=== PATIENT | female | born 1960 | race Caucasian/White ===

== ENCOUNTER 2020-10-11 19:13 | Inpatient (IN) | payer MEDICARE, MEDICAID ==
[~2020-10-11] VITALS: Ht 160 cm; Wt 59.7 kg
--- NOTE | 2020-10-11 19:36 | PHYS DOC ---
Adult General HPI HPI Patient is a 60 year old the emergency department from the longterm for altered mental status and treated behavior. According to the longterm staff the patient has been declined to eat or take her medications for approximately 1 week. Patient has a poor historian and unable to provide any significant hist ory. Does deny any symptoms at this time. Staff the longterm do believe she has some change from her baseline but the timeline is not specific. No acute changes today and no deviation from today. No reported fever, chills, chest pain or shortness of breath. Unsure why the patient was sent to the emergency department Review of Systems Review of Systems Constitutional: Denies fever or chills [] Eyes: Denies change in visual acuity, redness, or eye pain [] HENT: Denies nasal congestion or sore throat [] Respiratory: Denies cough or shortness of breath [] Cardiovascular: No additional information not addressed in HPI [] GI: Denies abdominal pain, nausea, vomiting, bloody stools or diarrhea [] : Denies dysuria or hematuria [] Musculoskeletal: Denies back pain or joint pain [] Integument: Denies rash or skin lesions [] Neurologic: Denies headache, focal weakness or sensory changes [] Endocrine: Denies polyuria or polydipsia [] All other systems were reviewed and found to be within normal limits, except as documented in this note. Physical Exam Physical Exam Constitutional: Well developed, well nourished, no acute distress, non-toxic appearance. [] HENT: Normocephalic, atraumatic, bilateral external ears normal, oropharynx moist, no oral exudates, nose normal. [] Eyes: PERRLA, EOMI, conjunctiva normal, no discharge. [] Neck: Normal range of motion, no tenderness, supple, no stridor. [] Cardiovascular:Heart rate regular rhythm, no murmur [] Lungs & Thorax: Bilateral breath sounds clear to auscultation [] Abdomen: Bowel sounds normal, soft, no tenderness, no masses, no pulsatile masses. [] Skin: Warm, dry, no erythema, no rash. [] Back: No tenderness, no CVA tenderness. [] Extremities: No tenderness, no cyanosis, no clubbing, ROM intact, no edema. [] Neurologic: Alert and oriented X 3, normal motor function, normal sensory function, no focal deficits noted. [] Psychologic: Affect normal, judgement normal, mood normal. [] EKG EKG [] Radiology/Procedures Radiology/Procedures [] Course & Med Decision Making Course & Med Decision Making Pertinent Labs and Imaging studies reviewed. (See chart for details) [] Dragon Disclaimer Dragon Disclaimer This electronic medical record was generated, in whole or in part, using a voice recognition dictation system. Departure Departure Referrals: ABELARDO RAI MD (PCP) FAUSTINO BRADFORD MD Oct 11, 2020 19:36
[2020-10-11 19:45] LABS: BASO % 0 % (0-3); EOS # 0.1 x10^3/uL (0.0-0.7); EOS % 1 % (0-3); HEMATOCRIT 43.8 % (36.0-47.0); HEMOGLOBIN 13.8 g/dL (12.0-15.5); LYMPH # 2.9 x10^3/uL (1.0-4.8); LYMPH % 27 % (24-48); MEAN CORPUSCULAR HEMOGLOBIN 29 pg (25-35); MEAN CORPUSCULAR HGB CONC 31 g/dL (31-37); MEAN CORPUSCULAR VOLUME 94 fL (79-100); MONO # 1.2 x10^3/uL (0.0-1.1); MONO % 11 % (0-9); NEUT # 6.7 x10^3/uL (1.8-7.7); NEUT % 61 % (31-73); PLATELET COUNT 218 x10^3/uL (140-400); RED BLOOD COUNT 4.69 x10^6/uL (3.50-5.40); RED CELL DISTRIBUTION WIDTH 14.2 % (11.5-14.5); WHITE BLOOD COUNT 11.1 x10^3/uL (4.0-11.0)
[2020-10-11] MEDS ORDERED: IV NORMAL SALINE 1000ML BAG 1,000 ML IV ONE (19:45)
[2020-10-11 19:51] LABS: BILIRUBIN,URINE MODERATE (NEG); CLARITY,URINE CLEAR; COLOR,URINE AMBER; NITRITE,URINE NEGATIVE (NEG); PH,URINE 5.5 (<5.0-8.0); PROTEIN,URINE 30 mg/dL (NEG-TRACE)
[2020-10-11 20:02] LABS: AMORPHOUS SEDIMENT,UR PRESENT /HPF; BACTERIA,URINE MODERATE /HPF (0-FEW)
[2020-10-11 20:03] LABS: HYALINE CASTS, URINE MODERATE /HPF; RBC,URINE 0 /HPF (0-2)
[2020-10-11 20:04] LABS: WBC,URINE 20-40 /HPF (0-4)
[2020-10-11 20:04] LABS: ALBUMIN 3.7 g/dL (3.4-5.0); ALBUMIN/GLOBULIN RATIO 0.7 (1.0-1.7); CALCIUM 9.1 mg/dL (8.5-10.1); CREATININE 3.6 mg/dL (0.6-1.0); GFR 12.8; POTASSIUM 4.3 mmol/L (3.5-5.1); TOTAL BILIRUBIN 0.5 mg/dL (0.2-1.0); TOTAL PROTEIN 8.7 g/dL (6.4-8.2)
--- NOTE | 2020-10-11 20:35 | RAD ---
Exam: CT head INDICATION: Altered mental status TECHNIQUE: Sequential axial images through the head were obtained without the administration of IV co ntrast. Comparisons: None FINDINGS: There is a subcentimeter focus of hyperdensity noted in the aneta on the left series 7 image 28. No fo nika parenchymal lesion or hemorrhage is identified. There is no midline shift or sulcal effacement. Patchy hypodensity in the periventricular white matter. No acute vascular territory infarction is chelo ntified. Cabrera-white distinction is preserved. Prominence of ventricular system. Basal cisterns are well maintained. The basal cisterns are well sidney ntained. The visualized portions of the paranasal sinuses and mastoid air cells are well-pneumatized. No acute fractures. IMPRESSION: Small focus of hyperdensity noted on described above nonspecific may represent calcification versus p unctate hemorrhage. Recommend further evaluation with either MRI or short-term follow-up head CT. Exposure: One or more of the following in the visualized dose reduction techniques were utilized for this examination: 1. Automated exposure control 2. Adjustment of the MA and/or KV according to patient size Use of iterative of reconstructive technique FOR INTERNAL CODING PURPOSES Critical result: Findings discussed with Eros Chacon at 10/11/2020 8:31 PM. RESULT CODE: (C) Electronically signed by: Omar Nelson MD (10/11/2020 8:33 PM) [facility]
[2020-10-11] MEDS ORDERED: PHENYTOIN SODIUM EXTENDED 100 MG CAPSULE PO ONE (21:00)
[2020-10-11] MEDS ORDERED: IV 1/2 NORMAL SALINE 1,000 ML IV ONE (21:00)
[2020-10-11] MEDS ORDERED: ONDANSETRON PF 4 MG/2 ML VIAL. IV PRN (21:00)
[2020-10-11] MEDS ORDERED: MORPHINE SULFATE 2 MG/ML VIAL. IV PRN (21:00)
--- NOTE | 2020-10-11 21:01 | RAD ---
EXAM: AP View of the chest DATE: 10/11/2020 7:55 PM INDICATION: Altered mental status COMPARISON: No Prior FINDINGS: The heart is not enlarged. Mediastinal and hilar contours are normal. No focal parenchymal airspace opacity. Hyperlucency of the lung kendrick likely from underlying emphyse matous change. No pleural effusion or pneumothorax. IMPRESSION: 1. No radiographic evidence for acute cardiopulmonary process. Electronically signed by: Fili Claire MD (10/11/2020 8:59 PM) [facility]
[2020-10-12] VITALS (30 sets, daily range): BP systolic 69–101; BP diastolic 39–71
[2020-10-12] MEDS ORDERED: ACET500T68 PO (02:13)
[2020-10-12] MEDS ORDERED: LINZESS290 MCG PO (02:13)
[2020-10-12] MEDS ORDERED: CA C1TAB29 PO (02:13)
[2020-10-12] MEDS ORDERED: ATEN50TA PO (02:13)
[2020-10-12] MEDS ORDERED: SPIR25TA5 PO (02:13)
[2020-10-12] MEDS ORDERED: ASPI81TA59 PO (02:13)
[2020-10-12] MEDS ORDERED: PHEN100C PO ×2 (02:13)
[2020-10-12] MEDS ORDERED: ASCO500C PO (02:13)
[2020-10-12] MEDS ORDERED: SALI325S2 TP (02:13)
[2020-10-12] MEDS ORDERED: DOCU100C28 PO (02:13)
[2020-10-12] MEDS ORDERED: LISI10TA16 PO (02:13)
[2020-10-12] MEDS: FOSPHENYTOIN 100 MG/2 ML VIAL. IV SCH ×3 (06:16→21:38)
--- NOTE | 2020-10-12 07:55 | PDOC1 ---
History and Physical Date of Admission Date of Admission DATE: 10/12/20 TIME: 07:53 Identification/Chief Complaint Chief Complaint altered mental status, HYPOTENSION, DEHYDRATION History of Present Illness History of Present Illness [facility] seen [facility] has been declined to eat or take her medications for approximately 1 week. poor historian and unable to provide any significant history. No symptoms at presentation per ER note . Staff the [facility] believes she has some change from her baseline 60 year old with altered mental status and treated behavior. symptoms at this time. Staff the [facility] do believe she has some change from her baseline but the timeline is not specific. No acute changes today and no deviation from today. No reported fever, chills, chest pain or shortness of breath. sodium noted to be 161 in ER Past Medical History Past Medical History CENTRAL NERVOUS SYSTEM: Seizure (? Nonepileptic) GI: Other (Dysphagia) Infectious disease: Other (COVID-19 in February 2020) Past Surgical History Past Surgical History: No pertinent history Family History Family History: No pertinent hx Social History Social History [facility] resident Cardiovascular: HTN, Hyperlipidemia CENTRAL NERVOUS SYSTEM: Dementia Heme/Onc: No pertinent hx Musculoskeletal: Osteoarthritis Dermatology: No pertinent hx Family History Family History: Hypertension Social History Smoke: No ALCOHOL: none Drugs: None Current Problem List Problem List Problems Medical Problems: (1) Acute renal failure Status: Acute (2) Hypernatremia Status: Acute Current Medications Current Medications Current Medications Sodium Chloride 1,000 ml @ 1,000 mls/hr 1X ONCE IV Last administered on 10/11/20at 19:45; Start 10/11/20 at 19:45; Stop 10/11/20 at 20:46; Status DC Sodium Chloride 1,000 ml @ 100 mls/hr 1X ONCE IV Last administered on 10/11/20at 02:33; Start 10/11/20 at 21:00; Stop 10/12/20 at 06:59; Status DC Ondansetron HCl (Zofran) 4 mg PRN Q8HRS PRN IV NAUSEA/VOMITING 1ST CHOICE; Start 10/11/20 at 21:00; Stop 10/12/20 at 20:59 Morphine Sulfate (Morphine Sulfate) 2 mg PRN Q2HR PRN IV SEVERE PAIN 7-10; Start 10/11/20 at 21:00; Stop 10/12/20 at 20:59 Phenytoin Sodium (Dilantin) 100 mg 1X ONCE PO ; Start 10/11/20 at 21:00; Stop 10/11/20 at 21:01; Status DC Fosphenytoin Sodium (Cerebyx) 167 mg Q8HRS IV Last administered on 10/12/20at 06:16; Start 10/12/20 at 06:00 Active Scripts Active Reported Vitamin D3-Aloe 1,000 Unit Tab (Ca Cmb 1/Vit D3/B-6/Fa/B12/Av) 1 Each Tablet 1 Each PO DAILY Vitamin C (Ascorbic Acid) 500 Mg Capsule.er 500 Mg PO DAILY Spironolactone 25 Mg Tablet 25 Mg PO DAILY Selsun Blue (Salicylic Acid) 325 Ml Shampoo 7 Oz TP ,FRI Lisinopril 10 Mg Tablet 10 Mg PO DAILY Linzess (Linaclotide) 290 Mcg Capsule 72 Mcg PO DAILY07 Docusate Sodium 100 Mg Capsule 1 Cap PO DAILY 30 Days Dilantin (Phenytoin Sodium Extended) 100 Mg Capsule 200 Mg PO BID Dilantin (Phenytoin Sodium Extended) 100 Mg Capsule 1 Cap PO DAILY16 Atenolol 50 Mg Tablet 50 Mg PO DAILY Children's Aspirin (Aspirin) 81 Mg Tab.chew 81 Mg PO DAILY PRN Acetaminophen 500 Mg Tablet 500 Mg PO Q4HRS PRN Allergies Allergies: Coded Allergies: No Known Drug Allergies (Unverified , 10/11/20) ROS Review of System UNABLE TO PROVIDE ADEQUATE ROS DUE TO AMS Respiratory: Denies cough or shortness of breath [] Cardiovascular: No additional information not addressed in HPI [] GI: Denies abdominal pain, nausea, vomiting, bloody stools or diarrhea [] : Denies dysuria or hematuria [] Musculoskeletal: Denies back pain or joint pain [] Integument: Denies rash or skin lesions [] Neurologic: Denies headache, focal weakness or sensory changes [] Endocrine: Denies polyuria or polydipsia [] General: YES: Fatigue PSYCHOLOGICAL ROS: YES: Concentration difficultie, Disorientation, Memory difficulties Hematological and Lymphatic: No: Bleeding Problems, Blood Clots, Blood Transf usions, Brusing, Night Sweats, Pallor, Swollen Lymph Nodes, Other Respiratory: No: Cough, Hemoptysis, Orthopnea, Pleuritic Pain, Shortness of breath, SOB with excertion, Sputum Changes, Stridor, Tachypnea, Wheezing, Other Musculoskeletal: Yes Joint Stiffness Physical Exam Physical Exam Neck: Normal range of motion, no tenderness, supple, no stridor. [] Cardiovascular:Heart rate regular rhythm, no murmur [] Lungs & Thorax: Bilateral breath sounds clear to auscultation [] Abdomen: Bowel sounds normal, soft, no tenderness, no masses, no pulsatile masses. [] Skin: Warm, dry, no erythema, no rash. [] Back: No tenderness, no CVA tenderness. [] Extremities: No tenderness, no cyanosis, no clubbing, ROM intact, no edema. [] Neurologic: Alert and oriented X 3, normal motor function, normal sensory function, General: Cooperative, No acute distress HEENT: Atraumatic Lungs: Clear to auscultation, Normal air movement Heart: RRR Breasts: Not examined Abdomen: Soft Rectal Exam: not examined PELVIC: Examination not indicated Extremities: No cyanosis Vitals Vitals Vital Signs Date Time Temp Pulse Resp B/P (MAP) Pulse Ox O2 Delivery O2 Flow Rate FiO2 10/12/20 07:00 78 12 81/60 (67) 100 Room Air 10/12/20 04:00 97.4 97.4 Labs Labs Laboratory Tests Test 10/11/20 19:35 10/11/20 19:40 White Blood Count 11.1 x10^3/uL (4.0-11.0) Red Blood Count 4.69 x10^6/uL (3.50-5.40) Hemoglobin 13.8 g/dL (12.0-15.5) Hematocrit 43.8 % (36.0-47.0) Mean Corpuscular Volume 94 fL (79-100) Mean Corpuscular Hemoglobin 29 pg (25-35) Mean Corpuscular Hemoglobin Concent 31 g/dL (31-37) Red Cell Distribution Width 14.2 % (11.5-14.5) Platelet Count 218 x10^3/uL (140-400) Neutrophils (%) (Auto) 61 % (31-73) Lymphocytes (%) (Auto) 27 % (24-48) Monocytes (%) (Auto) 11 % (0-9) Eosinophils (%) (Auto) 1 % (0-3) Basophils (%) (Auto) 0 % (0-3) Neutrophils # (Auto) 6.7 x10^3/uL (1.8-7.7) Lymphocytes # (Auto) 2.9 x10^3/uL (1.0-4.8) Monocytes # (Auto) 1.2 x10^3/uL (0.0-1.1) Eosinophils # (Auto) 0.1 x10^3/uL (0.0-0.7) Basophils # (Auto) 0.0 x10^3/uL (0.0-0.2) Sodium Level 164 mmol/L (136-145) Potassium Level 4.3 mmol/L (3.5-5.1) Chloride Level 123 mmol/L (98-107) Carbon Dioxide Level 28 mmol/L (21-32) Anion Gap 13 (6-14) Blood Urea Nitrogen 77 mg/dL (7-20) Creatinine 3.6 mg/dL (0.6-1.0) Estimated GFR (Cockcroft-Gault) 12.8 BUN/Creatinine Ratio 21 (6-20) Glucose Level 125 mg/dL (70-99) Calcium Level 9.1 mg/dL (8.5-10.1) Magnesium Level 3.0 mg/dL (1.8-2.4) Total Bilirubin 0.5 mg/dL (0.2-1.0) Aspartate Amino Transf (AST/SGOT) 45 U/L (15-37) Alanine Aminotransferase (ALT/SGPT) 43 U/L (14-59) Alkaline Phosphatase 146 U/L (46-116) Ammonia < 10 mcmol/L (11-34) Creatine Kinase 361 U/L (26-192) LV-Mrv-L-Type Natriuretic Peptide 620 pg/mL (0-124) Total Protein 8.7 g/dL (6.4-8.2) Albumin 3.7 g/dL (3.4-5.0) Albumin/Globulin Ratio 0.7 (1.0-1.7) Urine Collection Type U cath Urine Color Eleanor Urine Clarity Clear Urine pH 5.5 (<5.0-8.0) Urine Specific [place] 1.025 (1.000-1.030) Urine Protein 30 mg/dL (NEG-TRACE) Urine Glucose (UA) Negative mg/dL (NEG) Urine Ketones (Stick) Trace mg/dL (NEG) Urine Blood Negative (NEG) Urine Nitrite Negative (NEG) Urine Bilirubin Moderate (NEG) Urine Urobilinogen Dipstick 1.0 mg/dL (0.2 mg/dL) Urine Leukocyte Esterase Trace (NEG) Urine RBC 0 /HPF (0-2) Urine WBC 20-40 /HPF (0-4) Urine Squamous Epithelial Cells Few /LPF Urine Amorphous Sediment Present /HPF Urine Bacteria Moderate /HPF (0-FEW) Urine Hyaline Casts Moderate /HPF Urine Mucus Mod /LPF Laboratory Tests Test 10/11/20 19:35 10/11/20 19:40 White Blood Count 11.1 x10^3/uL (4.0-11.0) Red Blood Count 4.69 x10^6/uL (3.50-5.40) Hemoglobin 13.8 g/dL (12.0-15.5) Hematocrit 43.8 % (36.0-47.0) Mean Corpuscular Volume 94 fL (79-100) Mean Corpuscular Hemoglobin 29 pg (25-35) Mean Corpuscular Hemoglobin Concent 31 g/dL (31-37) Red Cell Distribution Width 14.2 % (11.5-14.5) Platelet Count 218 x10^3/uL (140-400) Neutrophils (%) (Auto) 61 % (31-73) Lymphocytes (%) (Auto) 27 % (24-48) Monocytes (%) (Auto) 11 % (0-9) Eosinophils (%) (Auto) 1 % (0-3) Basophils (%) (Auto) 0 % (0-3) Neutrophils # (Auto) 6.7 x10^3/uL (1.8-7.7) Lymphocytes # (Auto) 2.9 x10^3/uL (1.0-4.8) Monocytes # (Auto) 1.2 x10^3/uL (0.0-1.1) Eosinophils # (Auto) 0.1 x10^3/uL (0.0-0.7) Basophils # (Auto) 0.0 x10^3/uL (0.0-0.2) Sodium Level 164 mmol/L (136-145) Potassium Level 4.3 mmol/L (3.5-5.1) Chloride Level 123 mmol/L (98-107) Carbon Dioxide Level 28 mmol/L (21-32) Anion Gap 13 (6-14) Blood Urea Nitrogen 77 mg/dL (7-20) Creatinine 3.6 mg/dL (0.6-1.0) Estimated GFR (Cockcroft-Gault) 12.8 BUN/Creatinine Ratio 21 (6-20) Glucose Level 125 mg/dL (70-99) Calcium Level 9.1 mg/dL (8.5-10.1) Magnesium Level 3.0 mg/dL (1.8-2.4) Total Bilirubin 0.5 mg/dL (0.2-1.0) Aspartate Amino Transf (AST/SGOT) 45 U/L (15-37) Alanine Aminotransferase (ALT/SGPT) 43 U/L (14-59) Alkaline Phosphatase 146 U/L (46-116) Ammonia < 10 mcmol/L (11-34) Creatine Kinase 361 U/L (26-192) VN-Myb-A-Type Natriuretic Peptide 620 pg/mL (0-124) Total Protein 8.7 g/dL (6.4-8.2) Albumin 3.7 g/dL (3.4-5.0) Albumin/Globulin Ratio 0.7 (1.0-1.7) Urine Collection Type U cath Urine Color Eleanor Urine Clarity Clear Urine pH 5.5 (<5.0-8.0) Urine Specific [place] 1.025 (1.000-1.030) Urine Protein 30 mg/dL (NEG-TRACE) Urine Glucose (UA) Negative mg/dL (NEG) Urine Ketones (Stick) Trace mg/dL (NEG) Urine Blood Negative (NEG) Urine Nitrite Negative (NEG) Urine Bilirubin Moderate (NEG) Urine Urobilinogen Dipstick 1.0 mg/dL (0.2 mg/dL) Urine Leukocyte Esterase Trace (NEG) Urine RBC 0 /HPF (0-2) Urine WBC 20-40 /HPF (0-4) Urine Squamous Epithelial Cells Few /LPF Urine Amorphous Sediment Present /HPF Urine Bacteria Moderate /HPF (0-FEW) Urine Hyaline Casts Moderate /HPF Urine Mucus Mod /LPF Images Images EXAM: AP View of the chest DATE: 10/11/2020 7:55 PM INDICATION: Altered mental status COMPARISON: No Prior FINDINGS: The heart is not enlarged. Mediastinal and hilar contours are normal. No focal parenchymal airspace opacity. Hyperlucency of the lung kendrick likely f rom underlying emphysematous change. No pleural effusion or pneumothorax. IMPRESSION: 1. No radiographic evidence for acute cardiopulmonary process. Electronically signed by: Fili Brown MD (10/11/2020 8:59 PM) [facility] DICTATED and SIGNED BY: FILI BROWN MD Exam: CT head INDICATION: Altered mental status TECHNIQUE: Sequential axial images through the head were obtained without the administration of IV contrast. Comparisons: None FINDINGS: There is a subcentimeter focus of hyperdensity noted in the aneta on the left series 7 image 28. No focal parenchymal lesion or hemorrhage is identified. There is no midline shift or sulcal effacement. Patchy hypodensity in the periventricular white matter. No acute vascular territory infarction is identified. Cabrera-white distinction is preserved. Prominence of ventricular system. Basal cisterns are well maintained. The basal cisterns are well maintained. The visualized portions of the paranasal sinuses and mastoid air cells are well- pneumatized. No acute fractures. IMPRESSION: Small focus of hyperdensity noted on described above nonspecific may represent calcification versus punctate hemorrhage. Recommend further evaluation with either MRI or short-term follow-up head CT. Exposure: One or more of the following in the visualized dose reduction techniques were utilized for this examination: 1. Automated exposure control 2. Adjustment of the MA and/or KV according to patient size Use of iterative of reconstructive technique FOR INTERNAL CODING PURPOSES Critical result: Findings discussed with Eros Chacon at 10/11/2020 8:31 PM. RESULT CODE: (C) Electronically signed by: Omar Daniels MD (10/11/2020 8:33 PM) [facility] DICTATED and SIGNED BY: OMAR DANIELS MD DATE: 10/11/208926OAC4 0 VTE Prophylaxis Ordered VTE Prophylaxis Devices: Yes VTE Pharmacological Prophylaxi: Yes Assessment/Plan Assessment/Plan impression 1. Severe electrolyte imbalance with hypernatremia, , hyperchloremia volume depleted 2. Altered mental status ,Small focus of hyperdensity noted on described above nonspecific may represent calcification versus punctate hemorrhage 3. morbid obesity 4. remote cva 5. hx dysphagia 6. HYPOTENSION, volume depleted plan 1. admit ICU 2. Consult nephrology 3. consult neurology 4. HYPOTONIC IV FLUID SUPPORT 5. DVT prophylaxis 6. PT/OT/ST 7. GI CONSULT 36 min cc time Justifications for Admission Other Justification GINO MOYER MD Oct 12, 2020 07:55
[2020-10-12] MEDS ORDERED: IV DEXTROSE 5 %-0.2 % NACL 1,000 ML IV SCH (08:00)
[2020-10-12] MEDS ORDERED: cefTRIAXone IV Push 1 GM VIAL. IVP SCH (09:00)
--- NOTE | 2020-10-12 09:46 | PDOC2 ---
CONSULT Date of Consult Date of Consult DATE: 10/12/20 TIME: 09:34 Reason for Consult Reason for Consult: MILVIA, Hyper Na Referring Physician Referring Physician: MILVIA, HyperNatremia Identification/Chief Complaint Chief Complaint Unable to Obtain 2/2AMS Source Source: Chart review History of Present Illness Reason for Visit: Patient is a 60 year old presented to the emergency department from the [facility] for altered mental status According to the [facility] staff the patient has been declined to eat or take her medications for approximately 1 week. Patient has a poor historian and unable to provide any significant history. No symptoms at presentation per ER note . Staff the snf do believe she has some change from her baseline but the timeline is not specific. No acute changes at presentation per ER . No reported fever, chills, chest pain or shortness of breath. No N/V/D. Per ER provider - Unsure why the patient was sent to the emergency department. Last nigt dw ER provider -no reported UTI per ER provider Labs at presentation cw MILVIA and HyperNatremia Past Medical History Past Medical History Seizure (? 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 Smoke: No ALCOHOL: none Drugs: None Current Problem List Problem List Problems Medical Problems: (1) Acute renal failure Status: Acute (2) Hypernatremia Status: Acute Current Medications Current Medications Current Medications Sodium Chloride 1,000 ml @ 1,000 mls/hr 1X ONCE IV Last administered on 10/11/20at 19:45; Start 10/11/20 at 19:45; Stop 10/11/20 at 20:46; Status DC Sodium Chloride 1,000 ml @ 100 mls/hr 1X ONCE IV Last administered on 10/11/20at 02:33; Start 10/11/20 at 21:00; Stop 10/12/20 at 06:59; Status DC Ondansetron HCl (Zofran) 4 mg PRN Q8HRS PRN IV NAUSEA/VOMITING 1ST CHOICE; Start 10/11/20 at 21:00; Stop 10/12/20 at 20:59 Morphine Sulfate (Morphine Sulfate) 2 mg PRN Q2HR PRN IV SEVERE PAIN 7-10; Start 10/11/20 at 21:00; Stop 10/12/20 at 20:59 Phenytoin Sodium (Dilantin) 100 mg 1X ONCE PO ; Start 10/11/20 at 21:00; Stop 10/11/20 at 21:01; Status DC Fosphenytoin Sodium (Cerebyx) 167 mg Q8HRS IV Last administered on 10/12/20at 06:16; Start 10/12/20 at 06:00 Dextrose/Sodium Chloride 1,000 ml @ 75 mls/hr [id number] IV Last administered on 10/12/20at 08:21; Start 10/12/20 at 08:00 Ceftriaxone Sodium (Rocephin) 1 gm Q24H IVP Last administered on 10/12/20at 08:21; Start 10/12/20 at 09:00 Active Scripts Active Reported Vitamin D3-Aloe 1,000 Unit Tab (Ca Cmb 1/Vit D3/B-6/Fa/B12/Av) 1 Each Tablet 1 Each PO DAILY Vitamin C (Ascorbic Acid) 500 Mg Capsule.er 500 Mg PO DAILY Spironolactone 25 Mg Tablet 25 Mg PO DAILY Selsun Blue (Salicylic Acid) 325 Ml Shampoo 7 Oz TP ,FRI Lisinopril 10 Mg Tablet 10 Mg PO DAILY Linzess (Linaclotide) 290 Mcg Capsule 72 Mcg PO DAILY07 Docusate Sodium 100 Mg Capsule 1 Cap PO DAILY 30 Days Dilantin (Phenytoin Sodium Extended) 100 Mg Capsule 200 Mg PO BID Dilantin (Phenytoin Sodium Extended) 100 Mg Capsule 1 Cap PO DAILY16 Atenolol 50 Mg Tablet 50 Mg PO DAILY Children's Aspirin (Aspirin) 81 Mg Tab.chew 81 Mg PO DAILY PRN Acetaminophen 500 Mg Tablet 500 Mg PO Q4HRS PRN Allergies Allergies: Coded Allergies: No Known Drug Allergies (Unverified , 10/11/20) ROS Review of System Unable to Obtain fro Patient , rest per HPI Physical Exam Physical Exam Gen NAD HEEN OM dry, On RA Neck Supple Lungs CTA , Non labored CV RRR Abd soft , NR Neuro Skin No Rash Ext No edema, Cyanosis No noyola Vital Signs Vital Signs Date Time Temp Pulse Resp B/P (MAP) Pulse Ox O2 Delivery O2 Flow Rate FiO2 10/12/20 09:00 79 12 86/62 (70) 98 Room Air 10/12/20 08:00 97.7 97.7 Assessment & Plan MILVIA suspect Pre renal/Dehydration/Poor PO intake, per [place] me list- Lisinopril and Aldactone UA cw UTI ,Labs still pending , UOP not recorded Supportive care, Renal US, Strict I/O, bladder scan prn (if no noyola ) , avoid nephrotoxins HyperNatremia - Continue IVF Hypotension - On antihypertensives per [place] list , Hold UTI - defer to Primary 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- On intravenous fosphenytoin Labs Labs Laboratory Tests Test 10/11/20 19:35 10/11/20 19:40 White Blood Count 11.1 x10^3/uL (4.0-11.0) Red Blood Count 4.69 x10^6/uL (3.50-5.40) Hemoglobin 13.8 g/dL (12.0-15.5) Hematocrit 43.8 % (36.0-47.0) Mean Corpuscular Volume 94 fL (79-100) Mean Corpuscular Hemoglobin 29 pg (25-35) Mean Corpuscular Hemoglobin Concent 31 g/dL (31-37) Red Cell Distribution Width 14.2 % (11.5-14.5) Platelet Count 218 x10^3/uL (140-400) Neutrophils (%) (Auto) 61 % (31-73) Lymphocytes (%) (Auto) 27 % (24-48) Monocytes (%) (Auto) 11 % (0-9) Eosinophils (%) (Auto) 1 % (0-3) Basophils (%) (Auto) 0 % (0-3) Neutrophils # (Auto) 6.7 x10^3/uL (1.8-7.7) Lymphocytes # (Auto) 2.9 x10^3/uL (1.0-4.8) Monocytes # (Auto) 1.2 x10^3/uL (0.0-1.1) Eosinophils # (Auto) 0.1 x10^3/uL (0.0-0.7) Basophils # (Auto) 0.0 x10^3/uL (0.0-0.2) Sodium Level 164 mmol/L (136-145) Potassium Level 4.3 mmol/L (3.5-5.1) Chloride Level 123 mmol/L (98-107) Carbon Dioxide Level 28 mmol/L (21-32) Anion Gap 13 (6-14) Blood Urea Nitrogen 77 mg/dL (7-20) Creatinine 3.6 mg/dL (0.6-1.0) Estimated GFR (Cockcroft-Gault) 12.8 BUN/Creatinine Ratio 21 (6-20) Glucose Level 125 mg/dL (70-99) Calcium Level 9.1 mg/dL (8.5-10.1) Magnesium Level 3.0 mg/dL (1.8-2.4) Total Bilirubin 0.5 mg/dL (0.2-1.0) Aspartate Amino Transf (AST/SGOT) 45 U/L (15-37) Alanine Aminotransferase (ALT/SGPT) 43 U/L (14-59) Alkaline Phosphatase 146 U/L (46-116) Ammonia < 10 mcmol/L (11-34) Creatine Kinase 361 U/L (26-192) KG-Mkr-G-Type Natriuretic Peptide 620 pg/mL (0-124) Total Protein 8.7 g/dL (6.4-8.2) Albumin 3.7 g/dL (3.4-5.0) Albumin/Globulin Ratio 0.7 (1.0-1.7) Urine Collection Type U cath Urine Color Eleanor Urine Clarity Clear Urine pH 5.5 (<5.0-8.0) Urine Specific [place] 1.025 (1.000-1.030) Urine Protein 30 mg/dL (NEG-TRACE) Urine Glucose (UA) Negative mg/dL (NEG) Urine Ketones (Stick) Trace mg/dL (NEG) Urine Blood Negative (NEG) Urine Nitrite Negative (NEG) Urine Bilirubin Moderate (NEG) Urine Urobilinogen Dipstick 1.0 mg/dL (0.2 mg/dL) Urine Leukocyte Esterase Trace (NEG) Urine RBC 0 /HPF (0-2) Urine WBC 20-40 /HPF (0-4) Urine Squamous Epithelial Cells Few /LPF Urine Amorphous Sediment Present /HPF Urine Bacteria Moderate /HPF (0-FEW) Urine Hyaline Casts Moderate /HPF Urine Mucus Mod /LPF Laboratory Tests Test 10/11/20 19:35 10/11/20 19:40 White Blood Count 11.1 x10^3/uL (4.0-11.0) Red Blood Count 4.69 x10^6/uL (3.50-5.40) Hemoglobin 13.8 g/dL (12.0-15.5) Hematocrit 43.8 % (36.0-47.0) Mean Corpuscular Volume 94 fL (79-100) Mean Corpuscular Hemoglobin 29 pg (25-35) Mean Corpuscular Hemoglobin Concent 31 g/dL (31-37) Red Cell Distribution Width 14.2 % (11.5-14.5) Platelet Count 218 x10^3/uL (140-400) Neutrophils (%) (Auto) 61 % (31-73) Lymphocytes (%) (Auto) 27 % (24-48) Monocytes (%) (Auto) 11 % (0-9) Eosinophils (%) (Auto) 1 % (0-3) Basophils (%) (Auto) 0 % (0-3) Neutrophils # (Auto) 6.7 x10^3/uL (1.8-7.7) Lymphocytes # (Auto) 2.9 x10^3/uL (1.0-4.8) Monocytes # (Auto) 1.2 x10^3/uL (0.0-1.1) Eosinophils # (Auto) 0.1 x10^3/uL (0.0-0.7) Basophils # (Auto) 0.0 x10^3/uL (0.0-0.2) Sodium Level 164 mmol/L (136-145) Potassium Level 4.3 mmol/L (3.5-5.1) Chloride Level 123 mmol/L (98-107) Carbon Dioxide Level 28 mmol/L (21-32) Anion Gap 13 (6-14) Blood Urea Nitrogen 77 mg/dL (7-20) Creatinine 3.6 mg/dL (0.6-1.0) Estimated GFR (Cockcroft-Gault) 12.8 BUN/Creatinine Ratio 21 (6-20) Glucose Level 125 mg/dL (70-99) Calcium Level 9.1 mg/dL (8.5-10.1) Magnesium Level 3.0 mg/dL (1.8-2.4) Total Bilirubin 0.5 mg/dL (0.2-1.0) Aspartate Amino Transf (AST/SGOT) 45 U/L (15-37) Alanine Aminotransferase (ALT/SGPT) 43 U/L (14-59) Alkaline Phosphatase 146 U/L (46-116) Ammonia < 10 mcmol/L (11-34) Creatine Kinase 361 U/L (26-192) HN-Rnh-O-Type Natriuretic Peptide 620 pg/mL (0-124) Total Protein 8.7 g/dL (6.4-8.2) Albumin 3.7 g/dL (3.4-5.0) Albumin/Globulin Ratio 0.7 (1.0-1.7) Urine Collection Type U cath Urine Color Eleanor Urine Clarity Clear Urine pH 5.5 (<5.0-8.0) Urine Specific [place] 1.025 (1.000-1.030) Urine Protein 30 mg/dL (NEG-TRACE) Urine Glucose (UA) Negative mg/dL (NEG) Urine Ketones (Stick) Trace mg/dL (NEG) Urine Blood Negative (NEG) Urine Nitrite Negative (NEG) Urine Bilirubin Moderate (NEG) Urine Urobilinogen Dipstick 1.0 mg/dL (0.2 mg/dL) Urine Leukocyte Esterase Trace (NEG) Urine RBC 0 /HPF (0-2) Urine WBC 20-40 /HPF (0-4) Urine Squamous Epithelial Cells Few /LPF Urine Amorphous Sediment Present /HPF Urine Bacteria Moderate /HPF (0-FEW) Urine Hyaline Casts Moderate /HPF Urine Mucus Mod /LPF Review All relevant outside records, renal labs, imaging studies, telemetry/EKG's were reviewed. Images Images CT head There is a subcentimeter focus of hyperdensity noted in the aneta on the left series 7 image 28. No focal parenchymal lesion or hemorrhage is identified. There is no midline shift or sulcal effacement. Patchy hypodensity in the periventricular white matter. No acute vascular territory infarction is identified. Cabrera-white distinction is preserved. Prominence of ventricular system. Basal cisterns are well maintained. The basal cisterns are well maintained. The visualized portions of the paranasal sinuses and mastoid air cells are well- pneumatized. No acute fractures. IMPRESSION: Small focus of hyperdensity noted on described above nonspecific may represent calcification versus punctate hemorrhage. Recommend further evaluation with either MRI or short-term follow-up head CT. CxR 1. No radiographic evidence for acute cardiopulmonary process. EZEKIEL HUERTA MD Oct 12, 2020 09:46
--- NOTE | 2020-10-12 11:30 | PDOC2 ---
NEUROLOGY CONSULT Date of Service DOS: DATE: 10/12/20 TIME: 11:22 Reason for Consult Reason for Consult: Seizures, abnormal head CT Referring Physician Referring Physician: Dr. Abernathy Source Source: Chart review, Patient History of Present Illness History of Present Illness The patient is a 60-year-old female long term resident sent over for altered mental status, not eating. She is found to have abnormal head CT as reviewed below, hypernatremia, and acute kidney injury. She nods yes or no to questions, I believe she is telling me that it has been a long time since she had a seizure. She has a listed history of seizures and I see that she is on phenytoin, but the long term records say that this is a conversion disorder. There is also history of stroke. Past Medical History Cardiovascular: HTN CENTRAL NERVOUS SYSTEM: Seizure (? Nonepileptic) GI: Other (Dysphagia) Infectious disease: Other (COVID-19 in February 2020) Past Surgical History Past Surgical History: No pertinent history Family History Family History: No pertinent hx Social History Social History retirement resident Current Medications Current Medications Current Medications Sodium Chloride 1,000 ml @ 1,000 mls/hr 1X ONCE IV Last administered on 10/11/20at 19:45; Start 10/11/20 at 19:45; Stop 10/11/20 at 20:46; Status DC Sodium Chloride 1,000 ml @ 100 mls/hr 1X ONCE IV Last administered on 10/11/20at 02:33; Start 10/11/20 at 21:00; Stop 10/12/20 at 06:59; Status DC Ondansetron HCl (Zofran) 4 mg PRN Q8HRS PRN IV NAUSEA/VOMITING 1ST CHOICE; Start 10/11/20 at 21:00; Stop 10/12/20 at 20:59 Morphine Sulfate (Morphine Sulfate) 2 mg PRN Q2HR PRN IV SEVERE PAIN 7-10; Start 10/11/20 at 21:00; Stop 10/12/20 at 20:59 Phenytoin Sodium (Dilantin) 100 mg 1X ONCE PO ; Start 10/11/20 at 21:00; Stop 10/11/20 at 21:01; Status DC Fosphenytoin Sodium (Cerebyx) 167 mg Q8HRS IV Last administered on 10/12/20at 06:16; Start 10/12/20 at 06:00 Dextrose/Sodium Chloride 1,000 ml @ 75 mls/hr [id number] IV Last administered on 10/12/20at 08:21; Start 10/12/20 at 08:00 Ceftriaxone Sodium (Rocephin) 1 gm Q24H IVP Last administered on 10/12/20at 08:21; Start 10/12/20 at 09:00 Active Scripts Active Reported Vitamin D3-Aloe 1,000 Unit Tab (Ca Cmb 1/Vit D3/B-6/Fa/B12/Av) 1 Each Tablet 1 Each PO DAILY Vitamin C (Ascorbic Acid) 500 Mg Capsule.er 500 Mg PO DAILY Spironolactone 25 Mg Tablet 25 Mg PO DAILY Selsun Blue (Salicylic Acid) 325 Ml Shampoo 7 Oz TP ,FRI Lisinopril 10 Mg Tablet 10 Mg PO DAILY Linzess (Linaclotide) 290 Mcg Capsule 72 Mcg PO DAILY07 Docusate Sodium 100 Mg Capsule 1 Cap PO DAILY 30 Days Dilantin (Phenytoin Sodium Extended) 100 Mg Capsule 200 Mg PO BID Dilantin (Phenytoin Sodium Extended) 100 Mg Capsule 1 Cap PO DAILY16 Atenolol 50 Mg Tablet 50 Mg PO DAILY Children's Aspirin (Aspirin) 81 Mg Tab.chew 81 Mg PO DAILY PRN Acetaminophen 500 Mg Tablet 500 Mg PO Q4HRS PRN Allergies Allergies: Coded Allergies: No Known Drug Allergies (Unverified , 10/11/20) ROS Review of System Not reliably obtained Physical Exam Physical Examination General: Well-developed, well-nourished black female in no acute distress HEENT: Normocephalic andatraumatic. Temporal arteriespulsatile and nontender. Neck: Supple without bruit, no meningismus Musculoskeletal: Stability:see neurologic. Gait exam:see neurologic. Tone:see neurologic.Strength:see neurologic. Neurological: Mental Status:Nods yes and no to questions and answer some of them that way, nonverbal, follows commands. Cranial Nerves:Pupils equal and reactive to light, extraocular movements areintact. Right field cut. Facial sensation is normal. There is no facial asymmetry. Vestibulo-ocular reflex is intact. Palate elevates and tongue protrudes in midline. All other cranial related problems are negative except as mentioned before.Reflexes:2+ and symmetric with flexor plantar responses. Motor:4/5, increased tone on the right. Coordination: Not cooperative. Gait:`Not tested. Sensory:Responds to pinprick in all 4 extremities. Vitals VITALS Vital Signs Date Time Temp Pulse Resp B/P (MAP) Pulse Ox O2 Delivery O2 Flow Rate FiO2 10/12/20 10:00 82 12 81/57 (65) 99 Room Air 10/12/20 08:00 97.7 97.7 Labs Labs Laboratory Tests Test 10/11/20 19:35 10/11/20 19:40 White Blood Count 11.1 x10^3/uL (4.0-11.0) Red Blood Count 4.69 x10^6/uL (3.50-5.40) Hemoglobin 13.8 g/dL (12.0-15.5) Hematocrit 43.8 % (36.0-47.0) Mean Corpuscular Volume 94 fL (79-100) Mean Corpuscular Hemoglobin 29 pg (25-35) Mean Corpuscular Hemoglobin Concent 31 g/dL (31-37) Red Cell Distribution Width 14.2 % (11.5-14.5) Platelet Count 218 x10^3/uL (140-400) Neutrophils (%) (Auto) 61 % (31-73) Lymphocytes (%) (Auto) 27 % (24-48) Monocytes (%) (Auto) 11 % (0-9) Eosinophils (%) (Auto) 1 % (0-3) Basophils (%) (Auto) 0 % (0-3) Neutrophils # (Auto) 6.7 x10^3/uL (1.8-7.7) Lymphocytes # (Auto) 2.9 x10^3/uL (1.0-4.8) Monocytes # (Auto) 1.2 x10^3/uL (0.0-1.1) Eosinophils # (Auto) 0.1 x10^3/uL (0.0-0.7) Basophils # (Auto) 0.0 x10^3/uL (0.0-0.2) Sodium Level 164 mmol/L (136-145) Potassium Level 4.3 mmol/L (3.5-5.1) Chloride Level 123 mmol/L (98-107) Carbon Dioxide Level 28 mmol/L (21-32) Anion Gap 13 (6-14) Blood Urea Nitrogen 77 mg/dL (7-20) Creatinine 3.6 mg/dL (0.6-1.0) Estimated GFR (Cockcroft-Gault) 12.8 BUN/Creatinine Ratio 21 (6-20) Glucose Level 125 mg/dL (70-99) Calcium Level 9.1 mg/dL (8.5-10.1) Magnesium Level 3.0 mg/dL (1.8-2.4) Total Bilirubin 0.5 mg/dL (0.2-1.0) Aspartate Amino Transf (AST/SGOT) 45 U/L (15-37) Alanine Aminotransferase (ALT/SGPT) 43 U/L (14-59) Alkaline Phosphatase 146 U/L (46-116) Ammonia < 10 mcmol/L (11-34) Creatine Kinase 361 U/L (26-192) DI-Rlj-N-Type Natriuretic Peptide 620 pg/mL (0-124) Total Protein 8.7 g/dL (6.4-8.2) Albumin 3.7 g/dL (3.4-5.0) Albumin/Globulin Ratio 0.7 (1.0-1.7) Urine Collection Type U cath Urine Color Eleanor Urine Clarity Clear Urine pH 5.5 (<5.0-8.0) Urine Specific [place] 1.025 (1.000-1.030) Urine Protein 30 mg/dL (NEG-TRACE) Urine Glucose (UA) Negative mg/dL (NEG) Urine Ketones (Stick) Trace mg/dL (NEG) Urine Blood Negative (NEG) Urine Nitrite Negative (NEG) Urine Bilirubin Moderate (NEG) Urine Urobilinogen Dipstick 1.0 mg/dL (0.2 mg/dL) Urine Leukocyte Esterase Trace (NEG) Urine RBC 0 /HPF (0-2) Urine WBC 20-40 /HPF (0-4) Urine Squamous Epithelial Cells Few /LPF Urine Amorphous Sediment Present /HPF Urine Bacteria Moderate /HPF (0-FEW) Urine Hyaline Casts Moderate /HPF Urine Mucus Mod /LPF Laboratory Tests Test 10/11/20 19:35 10/11/20 19:40 White Blood Count 11.1 x10^3/uL (4.0-11.0) Red Blood Count 4.69 x10^6/uL (3.50-5.40) Hemoglobin 13.8 g/dL (12.0-15.5) Hematocrit 43.8 % (36.0-47.0) Mean Corpuscular Volume 94 fL (79-100) Mean Corpuscular Hemoglobin 29 pg (25-35) Mean Corpuscular Hemoglobin Concent 31 g/dL (31-37) Red Cell Distribution Width 14.2 % (11.5-14.5) Platelet Count 218 x10^3/uL (140-400) Neutrophils (%) (Auto) 61 % (31-73) Lymphocytes (%) (Auto) 27 % (24-48) Monocytes (%) (Auto) 11 % (0-9) Eosinophils (%) (Auto) 1 % (0-3) Basophils (%) (Auto) 0 % (0-3) Neutrophils # (Auto) 6.7 x10^3/uL (1.8-7.7) Lymphocytes # (Auto) 2.9 x10^3/uL (1.0-4.8) Monocytes # (Auto) 1.2 x10^3/uL (0.0-1.1) Eosinophils # (Auto) 0.1 x10^3/uL (0.0-0.7) Basophils # (Auto) 0.0 x10^3/uL (0.0-0.2) Sodium Level 164 mmol/L (136-145) Potassium Level 4.3 mmol/L (3.5-5.1) Chloride Level 123 mmol/L (98-107) Carbon Dioxide Level 28 mmol/L (21-32) Anion Gap 13 (6-14) Blood Urea Nitrogen 77 mg/dL (7-20) Creatinine 3.6 mg/dL (0.6-1.0) Estimated GFR (Cockcroft-Gault) 12.8 BUN/Creatinine Ratio 21 (6-20) Glucose Level 125 mg/dL (70-99) Calcium Level 9.1 mg/dL (8.5-10.1) Magnesium Level 3.0 mg/dL (1.8-2.4) Total Bilirubin 0.5 mg/dL (0.2-1.0) Aspartate Amino Transf (AST/SGOT) 45 U/L (15-37) Alanine Aminotransferase (ALT/SGPT) 43 U/L (14-59) Alkaline Phosphatase 146 U/L (46-116) Ammonia < 10 mcmol/L (11-34) Creatine Kinase 361 U/L (26-192) WA-Szy-A-Type Natriuretic Peptide 620 pg/mL (0-124) Total Protein 8.7 g/dL (6.4-8.2) Albumin 3.7 g/dL (3.4-5.0) Albumin/Globulin Ratio 0.7 (1.0-1.7) Urine Collection Type U cath Urine Color Eleanor Urine Clarity Clear Urine pH 5.5 (<5.0-8.0) Urine Specific [place] 1.025 (1.000-1.030) Urine Protein 30 mg/dL (NEG-TRACE) Urine Glucose (UA) Negative mg/dL (NEG) Urine Ketones (Stick) Trace mg/dL (NEG) Urine Blood Negative (NEG) Urine Nitrite Negative (NEG) Urine Bilirubin Moderate (NEG) Urine Urobilinogen Dipstick 1.0 mg/dL (0.2 mg/dL) Urine Leukocyte Esterase Trace (NEG) Urine RBC 0 /HPF (0-2) Urine WBC 20-40 /HPF (0-4) Urine Squamous Epithelial Cells Few /LPF Urine Amorphous Sediment Present /HPF Urine Bacteria Moderate /HPF (0-FEW) Urine Hyaline Casts Moderate /HPF Urine Mucus Mod /LPF Images Images Exam: CT head INDICATION: Altered mental status TECHNIQUE: Sequential axial images through the head were obtained without the administration of IV contrast. Comparisons: None FINDINGS: There is a subcentimeter focus of hyperdensity noted in the aneta on the left series 7 image 28. No focal parenchymal lesion or hemorrhage is identified. There is no midline shift or sulcal effacement. Patchy hypodensity in the periventricular white matter. No acute vascular territory infarction is identified. Cabrera-white distinction is preserved. Prominence of ventricular system. Basal cisterns are well maintained. The basal cisterns are well maintained. The visualized portions of the paranasal sinuses and mastoid air cells are well- pneumatized. No acute fractures. IMPRESSION: Small focus of hyperdensity noted on described above nonspecific may represent calcification versus punctate hemorrhage. Recommend further evaluation with either MRI or short-term follow-up head CT. Assessment/Plan Assessment/Plan Impression: Probable old left hemispheric stroke Seizures versus psychogenic nonepileptic seizures Hypodensity in the aneta undoubtedly represents calcification as I find no evidence of a pontine hemorrhage. Hypernatremia and acute kidney injury, apparently due to her refusal to eat Recommendations: Repeat head CT tomorrow Treat medical diseases Continue intravenous fosphenytoin Thank you for letting me help with the patient's care. DANNA LOPEZ MD Oct 12, 2020 11:30
[2020-10-12] MEDS ORDERED: ALBUTEROL SULFATE 2.5 MG/3 ML NEBU. NEB PRN (11:45)
[2020-10-12] MEDS ORDERED: DOCUSATE SODIUM 100 MG CAPSULE. PO PRN (11:45)
[2020-10-12] MEDS ORDERED: guaiFENesin ORAL 200 MG/10 ML LIQUID. PO PRN (11:45)
[2020-10-12] MEDS ORDERED: ACETAMINOPHEN 650 MG SUPP.RECT. PR PRN (11:45)
[2020-10-12] MEDS ORDERED: 0.9 % SODIUM CHLORIDE 10 ML DISP.SYRIN. IV PRN (11:45)
--- NOTE | 2020-10-12 12:20 | PDOC2 ---
GI CONSULT Date of Service: DATE: 10/12/20 TIME: 12:05 Reason For Consult: "Dysphagia" HPI: HPI: 60 y/o female brought from [place] after AMS/weakness. No reliable history from patient (aphasia?). Per NH, not eating and declining meds/fluids. In ER, hypernatremic and azotemic c/w marked volume/free water depletion. Per staff, was on dysphagia diet at [place] so some pre-existing issues? When asked, denies choking on food or dysphagia (though suspect as above). No other GI history from her. Note Linzess/colace as regular meds, so h/o constipation inferred. PMH: PMH: HTN, prior CVA?, seizures? COVID earlier this year. No known surgery. FH: Family History: No pertinent hx Social History: Smoke: No ALCOHOL: none Drugs: None ROS: Cannot obtain from patient. Vitals: Vitals: Vital Signs Date Time Temp Pulse Resp B/P (MAP) Pulse Ox O2 Delivery O2 Flow Rate FiO2 10/12/20 10:00 82 12 81/57 (65) 99 Room Air 10/12/20 08:00 97.7 97.7 Labs: Labs: Laboratory Tests Test 10/11/20 19:35 10/11/20 19:40 White Blood Count 11.1 x10^3/uL (4.0-11.0) Red Blood Count 4.69 x10^6/uL (3.50-5.40) Hemoglobin 13.8 g/dL (12.0-15.5) Hematocrit 43.8 % (36.0-47.0) Mean Corpuscular Volume 94 fL (79-100) Mean Corpuscular Hemoglobin 29 pg (25-35) Mean Corpuscular Hemoglobin Concent 31 g/dL (31-37) Red Cell Distribution Width 14.2 % (11.5-14.5) Platelet Count 218 x10^3/uL (140-400) Neutrophils (%) (Auto) 61 % (31-73) Lymphocytes (%) (Auto) 27 % (24-48) Monocytes (%) (Auto) 11 % (0-9) Eosinophils (%) (Auto) 1 % (0-3) Basophils (%) (Auto) 0 % (0-3) Neutrophils # (Auto) 6.7 x10^3/uL (1.8-7.7) Lymphocytes # (Auto) 2.9 x10^3/uL (1.0-4.8) Monocytes # (Auto) 1.2 x10^3/uL (0.0-1.1) Eosinophils # (Auto) 0.1 x10^3/uL (0.0-0.7) Basophils # (Auto) 0.0 x10^3/uL (0.0-0.2) Sodium Level 164 mmol/L (136-145) Potassium Level 4.3 mmol/L (3.5-5.1) Chloride Level 123 mmol/L (98-107) Carbon Dioxide Level 28 mmol/L (21-32) Anion Gap 13 (6-14) Blood Urea Nitrogen 77 mg/dL (7-20) Creatinine 3.6 mg/dL (0.6-1.0) Estimated GFR (Cockcroft-Gault) 12.8 BUN/Creatinine Ratio 21 (6-20) Glucose Level 125 mg/dL (70-99) Calcium Level 9.1 mg/dL (8.5-10.1) Magnesium Level 3.0 mg/dL (1.8-2.4) Total Bilirubin 0.5 mg/dL (0.2-1.0) Aspartate Amino Transf (AST/SGOT) 45 U/L (15-37) Alanine Aminotransferase (ALT/SGPT) 43 U/L (14-59) Alkaline Phosphatase 146 U/L (46-116) Ammonia < 10 mcmol/L (11-34) Creatine Kinase 361 U/L (26-192) [id number]-Pvu-[id number]-Type Natriuretic Peptide 620 pg/mL (0-124) Total Protein 8.7 g/dL (6.4-8.2) Albumin 3.7 g/dL (3.4-5.0) Albumin/Globulin Ratio 0.7 (1.0-1.7) Urine Collection Type U cath Urine Color Eleanor Urine Clarity Clear Urine pH 5.5 (<5.0-8.0) Urine Specific [place] 1.025 (1.000-1.030) Urine Protein 30 mg/dL (NEG-TRACE) Urine Glucose (UA) Negative mg/dL (NEG) Urine Ketones (Stick) Trace mg/dL (NEG) Urine Blood Negative (NEG) Urine Nitrite Negative (NEG) Urine Bilirubin Moderate (NEG) Urine Urobilinogen Dipstick 1.0 mg/dL (0.2 mg/dL) Urine Leukocyte Esterase Trace (NEG) Urine RBC 0 /HPF (0-2) Urine WBC 20-40 /HPF (0-4) Urine Squamous Epithelial Cells Few /LPF Urine Amorphous Sediment Present /HPF Urine Bacteria Moderate /HPF (0-FEW) Urine Hyaline Casts Moderate /HPF Urine Mucus Mod /LPF Maybe UTI? Allergies: Coded Allergies: No Known Drug Allergies (Unverified , 10/11/20) Medications: Current Medications Medications (Trade) Dose Ordered Sig/Khoi Route PRN Reason Start Time Stop Time Status Last Admin Dose Admin Sodium Chloride 1,000 ml @ 1,000 mls/hr 1X ONCE IV 10/11/20 19:45 10/11/20 20:46 DC 10/11/20 19:45 Sodium Chloride 1,000 ml @ 100 mls/hr 1X ONCE IV 10/11/20 21:00 10/12/20 06:59 DC 10/11/20 02:33 Fosphenytoin Sodium (Cerebyx) 167 mg Q8HRS IV 10/12/20 06:00 10/12/20 06:16 Dextrose/Sodium Chloride 1,000 ml @ 75 mls/hr [id number] IV 10/12/20 08:00 10/12/20 08:21 Ceftriaxone Sodium (Rocephin) 1 gm Q24H IVP 10/12/20 09:00 10/12/20 11:48 DC 10/12/20 08:21 Imaging: Imaging: CT head noted. PE: GEN: NAD HEENT: Atraumatic, PERRLA LUNGS: CTAB HEART: RRR, no murmurs ABD: NABS, S/ND/NT, no masses EXTREMITY: No edema SKIN: No rashes, no jaundice NEURO/PSYCH: Seems awake and alert, orientation unclear. Right arm contracted and hyperreflexic. Decreased DTR's LE's. A/P: A/P: IMP: Seems historically may have some pre-existing swallowing difficulties, unclear how severe. Related to CVA? Inferred h/o constipation. UA looks not inconsistent with UTI to me. Volume/free water deficit. REC: Replace intravascular volume, hypotonic fluids given elevated Na+. NPO Antisecretory empirically. Culture urine if not done. BEET FLUMER evaluation at some point and go from there. Thanks. DANG EASTON MD Oct 12, 2020 12:20
[2020-10-12] MEDS: PIPERACILLIN/TAZOBACTAM 2.25 GM in IV NORMAL SALINE 50ML 50 ML IV SCH ×2 (12:50→17:43)
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
[2020-10-12] MEDS: ALBUMIN HUMAN 5% 250 ML IV SCH ×2 (14:27→17:43)
[2020-10-12] MEDS: FAMOTIDINE 20 MG/2 ML VIAL IVP SCH (14:28)
[2020-10-12] MEDS: HEPARIN for SUB-Q USE 5,000 UNIT/ML VIAL. SQ SCH ×2 (14:29→21:37)
--- NOTE | 2020-10-12 14:29 | RAD ---
US RENAL BILAT History: Reason: Caio / Spl. Instructions: / History: Comparison: None. Procedure: Transabdominal ultrasound images are obtained of the kidneys and bladder. Findings: Right kidney: measures 10.2 x 5.1 x 4.5 cm. Increased echogenicity. No hydronephrosis. Left kidney: measures 9.8 x 5.1 x 4.1 cm. Increased echogenicity. No hydronephrosis. Degraded evalua tion due to patient's inability to cooperate. Urinary bladder: No urinary bladder wall thickening. IVC and aorta not well seen due to overlying bowel gas. IMPRESSION: 1. Increased bilateral renal cortical echogenicity, may indicate medical renal disease. Electronically signed by: Oziel Campos DO (10/12/2020 2:27 PM) [id number]
--- NOTE | 2020-10-12 15:33 | NUR ---
SS following for discharge planning. SS reviewed pt chart and discussed with pt RN. Pt is LTC resident from [facility], ; fax [phone]. Pt has history of COVID19. Pt on IV Zosyn. Pt is able to return to facility when medically stable. SS will continue to follow for discharge planning.
[2020-10-12 16:28] LABS: BASO % 0 % (0-3); EOS # 0.1 x10^3/uL (0.0-0.7); EOS % 2 % (0-3); HEMATOCRIT 36.1 % (36.0-47.0); HEMOGLOBIN 11.7 g/dL (12.0-15.5); LYMPH # 1.9 x10^3/uL (1.0-4.8); LYMPH % 24 % (24-48); MEAN CORPUSCULAR HEMOGLOBIN 30 pg (25-35); MEAN CORPUSCULAR HGB CONC 33 g/dL (31-37); MEAN CORPUSCULAR VOLUME 94 fL (79-100); MONO # 0.8 x10^3/uL (0.0-1.1); MONO % 10 % (0-9); NEUT # 5.2 x10^3/uL (1.8-7.7); NEUT % 64 % (31-73); PLATELET COUNT 144 x10^3/uL (140-400); RED BLOOD COUNT 3.86 x10^6/uL (3.50-5.40); RED CELL DISTRIBUTION WIDTH 14.4 % (11.5-14.5); WHITE BLOOD COUNT 8.1 x10^3/uL (4.0-11.0)
[2020-10-12 17:10] LABS: CALCIUM 7.9 mg/dL (8.5-10.1); GFR 25.2; POTASSIUM 3.5 mmol/L (3.5-5.1)
[2020-10-12 17:41] LABS: PHENY 30.7 mcg/mL (10.0-20.0)
[2020-10-12] MEDS: IV DEXTROSE 5 %-0.45 % NACL 1,000 ML IV SCH (17:43)
[2020-10-12] MEDS: NOREPINEPHRINE VIAL 8 MG in IV DEXTROSE 5% 250 ML IV PRN (20:02)
[2020-10-13] VITALS (34 sets, daily range): BP systolic 74–126; BP diastolic 51–86
[2020-10-13] MEDS: PIPERACILLIN/TAZOBACTAM 2.25 GM in IV NORMAL SALINE 50ML 50 ML IV SCH ×5 (00:38→23:36)
[2020-10-13] MEDS: ALBUMIN HUMAN 5% 250 ML IV SCH ×3 (00:39→12:37)
[2020-10-13] MEDS: IV DEXTROSE 5 %-0.45 % NACL 1,000 ML IV SCH (03:07)
[2020-10-13] MEDS: HEPARIN for SUB-Q USE 5,000 UNIT/ML VIAL. SQ SCH ×3 (05:09→21:32)
[2020-10-13] MEDS: FOSPHENYTOIN 100 MG/2 ML VIAL. IV SCH ×3 (05:10→21:31)
[2020-10-13 06:06] LABS: BASO % 0 % (0-3); EOS # 0.6 x10^3/uL (0.0-0.7); EOS % 7 % (0-3); HEMATOCRIT 32.8 % (36.0-47.0); HEMOGLOBIN 10.7 g/dL (12.0-15.5); LYMPH # 2.3 x10^3/uL (1.0-4.8); LYMPH % 26 % (24-48); MEAN CORPUSCULAR HEMOGLOBIN 30 pg (25-35); MEAN CORPUSCULAR HGB CONC 33 g/dL (31-37); MEAN CORPUSCULAR VOLUME 92 fL (79-100); MONO # 0.8 x10^3/uL (0.0-1.1); MONO % 9 % (0-9); NEUT % 57 % (31-73); PLATELET COUNT 152 x10^3/uL (140-400); RED BLOOD COUNT 3.55 x10^6/uL (3.50-5.40); WHITE BLOOD COUNT 8.8 x10^3/uL (4.0-11.0)
[2020-10-13 06:20] LABS: ALBUMIN 3.3 g/dL (3.4-5.0); CALCIUM 7.8 mg/dL (8.5-10.1); CREATININE 1.7 mg/dL (0.6-1.0); GFR 30.5; PHOSPHORUS 2.2 mg/dL (2.6-4.7); TOTAL BILIRUBIN 0.4 mg/dL (0.2-1.0); TOTAL PROTEIN 6.6 g/dL (6.4-8.2)
[2020-10-13 06:22] LABS: POTASSIUM 2.9 mmol/L (3.5-5.1)
--- NOTE | 2020-10-13 07:50 | PDOC ---
DATE OF SERVICE: DOS: DATE: 10/13/20 TIME: 07:43 SUBJECTIVE ROS Due to the overnite ICE [place] and [address] conditions: I will be unable to see this patient today. I have reviewed the EHR documentation and reviewed pts progress with the RN. OBJECTIVE Vital Signs Vital Signs Date Time Temp Pulse Resp B/P (MAP) Pulse Ox O2 Delivery O2 Flow Rate FiO2 10/13/20 06:00 74 12 86/64 (71) 98 Room Air 10/13/20 04:00 98.0 98.0 I & 0 Intake and Output 10/13/20 07:00 Intake Total 2767 ml Output Total 1120 ml Balance 1647 ml Intake Oral 0 ml IV Total 2767 ml Output Urine Total 1120 ml # Voids 1 DIAGNOSIS/ASSESSMENT Assessment & Plan MILVIA suspect Pre renal/Dehydration: Creat better this am. UO remains marginal. Recheck CK in am given suspicion for Sz. UA relatively benign SEv Dehydration - improving with hypotonic IVF as ordered Low K : change IVF to non-dextrose containing IVF. Add K to IVF and check Mag. HyperNatremia - Continue hypotonic IVF Hypotension - On antihypertensives per NH list , Held for now. IVF Boluses prn as ordered Oliguria - IVF boluses prn. SUspect due to persistent Hypotension COMMENT/RELEVANT DATA Meds Current Medications Medications (Trade) Dose Ordered Sig/Khoi Start Time Stop Time Status Last Admin Dose Admin Acetaminophen (Tylenol Supp) 650 mg PRN Q4HRS PRN 10/12/20 11:45 Albumin Human 250 ml @ 62.5 mls/hr Q6HRS 10/12/20 14:00 10/13/20 13:59 10/13/20 06:18 62.5 MLS/HR Albuterol Sulfate (Ventolin Neb Soln) 2.5 mg PRN Q4HRS PRN 10/12/20 11:45 Ceftriaxone Sodium (Rocephin) 1 gm Q24H 10/12/20 09:00 10/12/20 11:48 DC 10/12/20 08:21 1 GM Dextrose/Sodium Chloride 1,000 ml @ 75 mls/hr [id number] 10/12/20 17:45 10/13/20 03:07 75 MLS/HR Docusate Sodium (Colace) 100 mg PRN BID PRN 10/12/20 11:45 Famotidine (Pepcid Vial) 20 mg DAILY 10/12/20 14:00 10/12/20 14:28 20 MG Fosphenytoin Sodium (Cerebyx) 167 mg Q8HRS 10/12/20 06:00 10/13/20 05:10 167 MG Guaifenesin (Robitussin) 200 mg PRN Q4HRS PRN 10/12/20 11:45 Heparin Sodium (Porcine) (Heparin Sodium) 5,000 unit Q8HRS 10/12/20 14:00 10/13/20 05:09 5,000 UNIT Morphine Sulfate (Morphine Sulfate) 2 mg PRN Q2HR PRN 10/11/20 21:00 10/12/20 20:59 DC Norepinephrine Bitartrate 8 mg/ Dextrose 258 ml @ 16.157 mls/ hr CONT PRN 10/12/20 20:00 10/12/20 20:02 16.157 MLS/HR Ondansetron HCl (Zofran) 4 mg PRN Q8HRS PRN 10/11/20 21:00 10/12/20 20:59 DC Phenytoin Sodium (Dilantin) 100 mg 1X ONCE 10/11/20 21:00 10/11/20 21:01 DC Piperacillin Sod/ Tazobactam Sod 2.25 gm/Sodium Chloride 50 ml @ 100 mls/hr Q6HRS 10/12/20 12:00 10/13/20 05:10 100 MLS/HR Sodium Chloride (Normal Saline Flush) 3 ml QSHIFT PRN 10/12/20 11:45 Lab Laboratory Tests Test 10/12/20 16:00 10/13/20 05:00 White Blood Count 8.1 x10^3/uL (4.0-11.0) 8.8 x10^3/uL (4.0-11.0) Red Blood Count 3.86 x10^6/uL (3.50-5.40) 3.55 x10^6/uL (3.50-5.40) Hemoglobin 11.7 g/dL (12.0-15.5) 10.7 g/dL (12.0-15.5) Hematocrit 36.1 % (36.0-47.0) 32.8 % (36.0-47.0) Mean Corpuscular Volume 94 fL (79-100) 92 fL (79-100) Mean Corpuscular Hemoglobin 30 pg (25-35) 30 pg (25-35) Mean Corpuscular Hemoglobin Concent 33 g/dL (31-37) 33 g/dL (31-37) Red Cell Distribution Width 14.4 % (11.5-14.5) 14.0 % (11.5-14.5) Platelet Count 144 x10^3/uL (140-400) 152 x10^3/uL (140-400) Neutrophils (%) (Auto) 64 % (31-73) 57 % (31-73) Lymphocytes (%) (Auto) 24 % (24-48) 26 % (24-48) Monocytes (%) (Auto) 10 % (0-9) 9 % (0-9) Eosinophils (%) (Auto) 2 % (0-3) 7 % (0-3) Basophils (%) (Auto) 0 % (0-3) 0 % (0-3) Neutrophils # (Auto) 5.2 x10^3/uL (1.8-7.7) 5.0 x10^3/uL (1.8-7.7) Lymphocytes # (Auto) 1.9 x10^3/uL (1.0-4.8) 2.3 x10^3/uL (1.0-4.8) Monocytes # (Auto) 0.8 x10^3/uL (0.0-1.1) 0.8 x10^3/uL (0.0-1.1) Eosinophils # (Auto) 0.1 x10^3/uL (0.0-0.7) 0.6 x10^3/uL (0.0-0.7) Basophils # (Auto) 0.0 x10^3/uL (0.0-0.2) 0.0 x10^3/uL (0.0-0.2) Sodium Level 161 mmol/L (136-145) 155 mmol/L (136-145) Potassium Level 3.5 mmol/L (3.5-5.1) 2.9 mmol/L (3.5-5.1) Chloride Level 121 mmol/L (98-107) 118 mmol/L (98-107) Carbon Dioxide Level 26 mmol/L (21-32) 24 mmol/L (21-32) Anion Gap 14 (6-14) 13 (6-14) Blood Urea Nitrogen 70 mg/dL (7-20) 46 mg/dL (7-20) Creatinine 2.0 mg/dL (0.6-1.0) 1.7 mg/dL (0.6-1.0) Estimated GFR (Cockcroft-Gault) 25.2 30.5 Glucose Level 306 mg/dL (70-99) 250 mg/dL (70-99) Calcium Level 7.9 mg/dL (8.5-10.1) 7.8 mg/dL (8.5-10.1) Thyroid Stimulating Hormone (TSH) 0.433 uIU/mL (0.358-3.74) Phenytoin (Dilantin) Level 30.7 mcg/mL (10.0-20.0) Phenytoin Last Dose Date 09/12/20 Phenytoin Last Dose Time 1430 BUN/Creatinine Ratio 27 (6-20) Phosphorus Level 2.2 mg/dL (2.6-4.7) Total Bilirubin 0.4 mg/dL (0.2-1.0) Aspartate Amino Transf (AST/SGOT) 21 U/L (15-37) Alanine Aminotransferase (ALT/SGPT) 20 U/L (14-59) Alkaline Phosphatase 99 U/L (46-116) Total Protein 6.6 g/dL (6.4-8.2) Albumin 3.3 g/dL (3.4-5.0) Albumin/Globulin Ratio 1.0 (1.0-1.7) Results All relevant outside records, renal labs, imaging studies, telemetry/EKG's were reviewed. Other Renal US Right kidney: measures 10.2 x 5.1 x 4.5 cm. Increased echogenicity. No hydronephrosis. Left kidney: measures 9.8 x 5.1 x 4.1 cm. Increased echogenicity. No hydronephrosis. Degraded evaluation due to patient's inability to cooperate. Urinary bladder: No urinary bladder wall thickening. IVC and aorta not well seen due to overlying bowel gas. IMPRESSION: 1. Increased bilateral renal cortical echogenicity, may indicate medical renal disease. Justicifation of Admission Dx: Justifications for Admission: Justification of Admission Dx: N/A YOMAIRA AGARWAL MD Oct 13, 2020 07:50
[2020-10-13] MEDS ORDERED: MAGNESIUM SULFATE 2GM 50 ML IV PRN (08:00)
[2020-10-13] MEDS ORDERED: IV NORMAL SALINE 500ML BAG 500 ML IV PRN (08:00)
[2020-10-13] MEDS: POTASSIUM CHLORIDE 40 MEQ in IV 1/2 NORMAL SALINE 1,000 ML IV SCH (10:09)
[2020-10-13] MEDS: POTASSIUM PHOS,M-BASIC-D-BASIC 15 MMOL in IV NORMAL SALINE 250ML 250 ML IV SCH ×2 (10:09→12:22)
--- NOTE | 2020-10-13 10:15 | PDOC ---
PROGRESS NOTES Date of Service: DATE: 10/13/20 TIME: 10:15 Chief Complaint Chief Complaint VTE Prophylaxis Ordered VTE Prophylaxis Devices: Yes VTE Pharmacological Prophylaxi: Yes Assessment/Plan Assessment/Plan impression 1. Severe electrolyte imbalance with hypernatremia, , hyperchloremia volume depleted 2. Altered mental status ,Small focus of hyperdensity noted on described above nonspecific may represent calcification versus punctate hemorrhage 3. morbid obesity 4. remote cva 5. hx dysphagia 6. HYPOTENSION, volume depleted 7. HYPOKALEMIA 8. MILVIA // Increased bilateral renal cortical echogenicity, may indicate medical renal disease. plan 1. admit ICU 2. Consult nephrology 3. consult neurology 4. HYPOTONIC IV FLUID SUPPORT 5. DVT prophylaxis 6. PT/OT/ST 7. GI CONSULT 8. REPLETE LYTES 37 min cc time Justifications for Admission Other Justification History of Present Illness History of Present Illness Identification/Chief Complaint Chief Complaint altered mental status, HYPOTENSION, DEHYDRATION History of Present Illness History of Present Illness correction patient seen in ER has been declined to eat or take her medications for approximately 1 week. poor historian and unable to provide any significant history. No symptoms at presentation per ER note . Staff the correction believes she has some change from her baseline 60 year old with altered mental status and treated behavior. symptoms at this time. Staff the correction do believe she has some change from her baseline but the timeline is not specific. No acute changes today and no deviation from today. No reported fever, chills, chest pain or shortness of breath. sodium noted to be 161 in ER Past Medical History Past Medical History CENTRAL NERVOUS SYSTEM: Seizure (? Nonepileptic) GI: Other (Dysphagia) Infectious disease: Other (COVID-19 in February 2020) Past Surgical History Past Surgical History: No pertinent history Family History Family History: No pertinent hx Social History Social History [facility] Cardiovascular: HTN, Hyperlipidemia CENTRAL NERVOUS SYSTEM: Dementia Heme/Onc: No pertinent hx Musculoskeletal: Osteoarthritis Dermatology: No pertinent hx Family History Family History: Hypertension Social History Smoke: No ALCOHOL: none Drugs: None Vitals Vitals Vital Signs Date Time Temp Pulse Resp B/P (MAP) Pulse Ox O2 Delivery O2 Flow Rate FiO2 10/13/20 10:00 81 18 126/83 (97) 98 Room Air 10/13/20 08:00 98.3 98.3 Physical Exam General: Alert, Cooperative, No acute distress Heart: Regular rate (SR), Normal S1, Normal S2, No murmurs Abdomen: Soft Extremities: No cyanosis, No edema Skin: No breakdown Labs LABS US RENAL BILAT History: Reason: Milvia / Spl. Instructions: / History: Comparison: None. Procedure: Transabdominal ultrasound images are obtained of the kidneys and bladder. Findings: Right kidney: measures 10.2 x 5.1 x 4.5 cm. Increased echogenicity. No hydronephrosis. Left kidney: measures 9.8 x 5.1 x 4.1 cm. Increased echogenicity. No hydronephrosis. Degraded evaluation due to patient's inability to cooperate. Urinary bladder: No urinary bladder wall thickening. IVC and aorta not well seen due to overlying bowel gas. IMPRESSION: 1. Increased bilateral renal cortical echogenicity, may indicate medical renal disease. Electronically signed by: Oziel Jimenez DO (10/12/2020 2:27 PM) [id number] DICTATED and SIGNED BY: OZIEL JIMENEZ DO RENAL BILAT History: Reason: Milvia / Spl. Instructions: / History: Comparison: None. Procedure: Transabdominal ultrasound images are obtained of the kidneys and bladder. Findings: Right kidney: measures 10.2 x 5.1 x 4.5 cm. Increased echogenicity. No hydronephrosis. Left kidney: measures 9.8 x 5.1 x 4.1 cm. Increased echogenicity. No hydronephrosis. Degraded evaluation due to patient's inability to cooperate. Urinary bladder: No urinary bladder wall thickening. IVC and aorta not well seen due to overlying bowel gas. IMPRESSION: 1. Increased bilateral renal cortical echogenicity, may indicate medical renal disease. Electronically signed by: Oziel Jimenez DO (10/12/2020 2:27 PM) [id number] DICTATED and SIGNED BY: OZIEL JIMENEZ DO DATE: 10/12/20 [id number] Laboratory Tests Test 10/12/20 16:00 10/13/20 05:00 White Blood Count 8.1 x10^3/uL (4.0-11.0) 8.8 x10^3/uL (4.0-11.0) Red Blood Count 3.86 x10^6/uL (3.50-5.40) 3.55 x10^6/uL (3.50-5.40) Hemoglobin 11.7 g/dL (12.0-15.5) 10.7 g/dL (12.0-15.5) Hematocrit 36.1 % (36.0-47.0) 32.8 % (36.0-47.0) Mean Corpuscular Volume 94 fL (79-100) 92 fL (79-100) Mean Corpuscular Hemoglobin 30 pg (25-35) 30 pg (25-35) Mean Corpuscular Hemoglobin Concent 33 g/dL (31-37) 33 g/dL (31-37) Red Cell Distribution Width 14.4 % (11.5-14.5) 14.0 % (11.5-14.5) Platelet Count 144 x10^3/uL (140-400) 152 x10^3/uL (140-400) Neutrophils (%) (Auto) 64 % (31-73) 57 % (31-73) Lymphocytes (%) (Auto) 24 % (24-48) 26 % (24-48) Monocytes (%) (Auto) 10 % (0-9) 9 % (0-9) Eosinophils (%) (Auto) 2 % (0-3) 7 % (0-3) Basophils (%) (Auto) 0 % (0-3) 0 % (0-3) Neutrophils # (Auto) 5.2 x10^3/uL (1.8-7.7) 5.0 x10^3/uL (1.8-7.7) Lymphocytes # (Auto) 1.9 x10^3/uL (1.0-4.8) 2.3 x10^3/uL (1.0-4.8) Monocytes # (Auto) 0.8 x10^3/uL (0.0-1.1) 0.8 x10^3/uL (0.0-1.1) Eosinophils # (Auto) 0.1 x10^3/uL (0.0-0.7) 0.6 x10^3/uL (0.0-0.7) Basophils # (Auto) 0.0 x10^3/uL (0.0-0.2) 0.0 x10^3/uL (0.0-0.2) Sodium Level 161 mmol/L (136-145) 155 mmol/L (136-145) Potassium Level 3.5 mmol/L (3.5-5.1) 2.9 mmol/L (3.5-5.1) Chloride Level 121 mmol/L (98-107) 118 mmol/L (98-107) Carbon Dioxide Level 26 mmol/L (21-32) 24 mmol/L (21-32) Anion Gap 14 (6-14) 13 (6-14) Blood Urea Nitrogen 70 mg/dL (7-20) 46 mg/dL (7-20) Creatinine 2.0 mg/dL (0.6-1.0) 1.7 mg/dL (0.6-1.0) Estimated GFR (Cockcroft-Gault) 25.2 30.5 Glucose Level 306 mg/dL (70-99) 250 mg/dL (70-99) Calcium Level 7.9 mg/dL (8.5-10.1) 7.8 mg/dL (8.5-10.1) Thyroid Stimulating Hormone (TSH) 0.433 uIU/mL (0.358-3.74) Phenytoin (Dilantin) Level 30.7 mcg/mL (10.0-20.0) Phenytoin Last Dose Date 09/12/20 Phenytoin Last Dose Time 1430 BUN/Creatinine Ratio 27 (6-20) Phosphorus Level 2.2 mg/dL (2.6-4.7) Total Bilirubin 0.4 mg/dL (0.2-1.0) Aspartate Amino Transf (AST/SGOT) 21 U/L (15-37) Alanine Aminotransferase (ALT/SGPT) 20 U/L (14-59) Alkaline Phosphatase 99 U/L (46-116) Total Protein 6.6 g/dL (6.4-8.2) Albumin 3.3 g/dL (3.4-5.0) Albumin/Globulin Ratio 1.0 (1.0-1.7) Assessment and Plan Assessmemt and Plan Problems Medical Problems: (1) Acute renal failure Status: Acute (2) Hypernatremia Status: Acute Comment Review of Relevant I have reviewed the following items crissy (where applicable) has been applied. Labs Laboratory Tests Test 10/11/20 19:35 10/11/20 19:40 10/12/20 16:00 10/13/20 05:00 White Blood Count 11.1 x10^3/uL (4.0-11.0) 8.1 x10^3/uL (4.0-11.0) 8.8 x10^3/uL (4.0-11.0) Red Blood Count 4.69 x10^6/uL (3.50-5.40) 3.86 x10^6/uL (3.50-5.40) 3.55 x10^6/uL (3.50-5.40) Hemoglobin 13.8 g/dL (12.0-15.5) 11.7 g/dL (12.0-15.5) 10.7 g/dL (12.0-15.5) Hematocrit 43.8 % (36.0-47.0) 36.1 % (36.0-47.0) 32.8 % (36.0-47.0) Mean Corpuscular Volume 94 fL (79-100) 94 fL (79-100) 92 fL (79-100) Mean Corpuscular Hemoglobin 29 pg (25-35) 30 pg (25-35) 30 pg (25-35) Mean Corpuscular Hemoglobin Concent 31 g/dL (31-37) 33 g/dL (31-37) 33 g/dL (31-37) Red Cell Distribution Width 14.2 % (11.5-14.5) 14.4 % (11.5-14.5) 14.0 % (11.5-14.5) Platelet Count 218 x10^3/uL (140-400) 144 x10^3/uL (140-400) 152 x10^3/uL (140-400) Neutrophils (%) (Auto) 61 % (31-73) 64 % (31-73) 57 % (31-73) Lymphocytes (%) (Auto) 27 % (24-48) 24 % (24-48) 26 % (24-48) Monocytes (%) (Auto) 11 % (0-9) 10 % (0-9) 9 % (0-9) Eosinophils (%) (Auto) 1 % (0-3) 2 % (0-3) 7 % (0-3) Basophils (%) (Auto) 0 % (0-3) 0 % (0-3) 0 % (0-3) Neutrophils # (Auto) 6.7 x10^3/uL (1.8-7.7) 5.2 x10^3/uL (1.8-7.7) 5.0 x10^3/uL (1.8-7.7) Lymphocytes # (Auto) 2.9 x10^3/uL (1.0-4.8) 1.9 x10^3/uL (1.0-4.8) 2.3 x10^3/uL (1.0-4.8) Monocytes # (Auto) 1.2 x10^3/uL (0.0-1.1) 0.8 x10^3/uL (0.0-1.1) 0.8 x10^3/uL (0.0-1.1) Eosinophils # (Auto) 0.1 x10^3/uL (0.0-0.7) 0.1 x10^3/uL (0.0-0.7) 0.6 x10^3/uL (0.0-0.7) Basophils # (Auto) 0.0 x10^3/uL (0.0-0.2) 0.0 x10^3/uL (0.0-0.2) 0.0 x10^3/uL (0.0-0.2) Sodium Level 164 mmol/L (136-145) 161 mmol/L (136-145) 155 mmol/L (136-145) Potassium Level 4.3 mmol/L (3.5-5.1) 3.5 mmol/L (3.5-5.1) 2.9 mmol/L (3.5-5.1) Chloride Level 123 mmol/L (98-107) 121 mmol/L (98-107) 118 mmol/L (98-107) Carbon Dioxide Level 28 mmol/L (21-32) 26 mmol/L (21-32) 24 mmol/L (21-32) Anion Gap 13 (6-14) 14 (6-14) 13 (6-14) Blood Urea Nitrogen 77 mg/dL (7-20) 70 mg/dL (7-20) 46 mg/dL (7-20) Creatinine 3.6 mg/dL (0.6-1.0) 2.0 mg/dL (0.6-1.0) 1.7 mg/dL (0.6-1.0) Estimated GFR (Cockcroft-Gault) 12.8 25.2 30.5 BUN/Creatinine Ratio 21 (6-20) 27 (6-20) Glucose Level 125 mg/dL (70-99) 306 mg/dL (70-99) 250 mg/dL (70-99) Calcium Level 9.1 mg/dL (8.5-10.1) 7.9 mg/dL (8.5-10.1) 7.8 mg/dL (8.5-10.1) Magnesium Level 3.0 mg/dL (1.8-2.4) Total Bilirubin 0.5 mg/dL (0.2-1.0) 0.4 mg/dL (0.2-1.0) Aspartate Amino Transf (AST/SGOT) 45 U/L (15-37) 21 U/L (15-37) Alanine Aminotransferase (ALT/SGPT) 43 U/L (14-59) 20 U/L (14-59) Alkaline Phosphatase 146 U/L (46-116) 99 U/L (46-116) Ammonia < 10 mcmol/L (11-34) Creatine Kinase 361 U/L (26-192) MC-Foz-Q-Type Natriuretic Peptide 620 pg/mL (0-124) Total Protein 8.7 g/dL (6.4-8.2) 6.6 g/dL (6.4-8.2) Albumin 3.7 g/dL (3.4-5.0) 3.3 g/dL (3.4-5.0) Albumin/Globulin Ratio 0.7 (1.0-1.7) 1.0 (1.0-1.7) Urine Collection Type U cath Urine Color Eleanor Urine Clarity Clear Urine pH 5.5 (<5.0-8.0) Urine Specific [place] 1.025 (1.000-1.030) Urine Protein 30 mg/dL (NEG-TRACE) Urine Glucose (UA) Negative mg/dL (NEG) Urine Ketones (Stick) Trace mg/dL (NEG) Urine Blood Negative (NEG) Urine Nitrite Negative (NEG) Urine Bilirubin Moderate (NEG) Urine Urobilinogen Dipstick 1.0 mg/dL (0.2 mg/dL) Urine Leukocyte Esterase Trace (NEG) Urine RBC 0 /HPF (0-2) Urine WBC 20-40 /HPF (0-4) Urine Squamous Epithelial Cells Few /LPF Urine Amorphous Sediment Present /HPF Urine Bacteria Moderate /HPF (0-FEW) Urine Hyaline Casts Moderate /HPF Urine Mucus Mod /LPF Thyroid Stimulating Hormone (TSH) 0.433 uIU/mL (0.358-3.74) Phenytoin (Dilantin) Level 30.7 mcg/mL (10.0-20.0) Phenytoin Last Dose Date 09/12/20 Phenytoin Last Dose Time 1430 Phosphorus Level 2.2 mg/dL (2.6-4.7) Laboratory Tests Test 10/12/20 16:00 10/13/20 05:00 White Blood Count 8.1 x10^3/uL (4.0-11.0) 8.8 x10^3/uL (4.0-11.0) Red Blood Count 3.86 x10^6/uL (3.50-5.40) 3.55 x10^6/uL (3.50-5.40) Hemoglobin 11.7 g/dL (12.0-15.5) 10.7 g/dL (12.0-15.5) Hematocrit 36.1 % (36.0-47.0) 32.8 % (36.0-47.0) Mean Corpuscular Volume 94 fL (79-100) 92 fL (79-100) Mean Corpuscular Hemoglobin 30 pg (25-35) 30 pg (25-35) Mean Corpuscular Hemoglobin Concent 33 g/dL (31-37) 33 g/dL (31-37) Red Cell Distribution Width 14.4 % (11.5-14.5) 14.0 % (11.5-14.5) Platelet Count 144 x10^3/uL (140-400) 152 x10^3/uL (140-400) Neutrophils (%) (Auto) 64 % (31-73) 57 % (31-73) Lymphocytes (%) (Auto) 24 % (24-48) 26 % (24-48) Monocytes (%) (Auto) 10 % (0-9) 9 % (0-9) Eosinophils (%) (Auto) 2 % (0-3) 7 % (0-3) Basophils (%) (Auto) 0 % (0-3) 0 % (0-3) Neutrophils # (Auto) 5.2 x10^3/uL (1.8-7.7) 5.0 x10^3/uL (1.8-7.7) Lymphocytes # (Auto) 1.9 x10^3/uL (1.0-4.8) 2.3 x10^3/uL (1.0-4.8) Monocytes # (Auto) 0.8 x10^3/uL (0.0-1.1) 0.8 x10^3/uL (0.0-1.1) Eosinophils # (Auto) 0.1 x10^3/uL (0.0-0.7) 0.6 x10^3/uL (0.0-0.7) Basophils # (Auto) 0.0 x10^3/uL (0.0-0.2) 0.0 x10^3/uL (0.0-0.2) Sodium Level 161 mmol/L (136-145) 155 mmol/L (136-145) Potassium Level 3.5 mmol/L (3.5-5.1) 2.9 mmol/L (3.5-5.1) Chloride Level 121 mmol/L (98-107) 118 mmol/L (98-107) Carbon Dioxide Level 26 mmol/L (21-32) 24 mmol/L (21-32) Anion Gap 14 (6-14) 13 (6-14) Blood Urea Nitrogen 70 mg/dL (7-20) 46 mg/dL (7-20) Creatinine 2.0 mg/dL (0.6-1.0) 1.7 mg/dL (0.6-1.0) Estimated GFR (Cockcroft-Gault) 25.2 30.5 Glucose Level 306 mg/dL (70-99) 250 mg/dL (70-99) Calcium Level 7.9 mg/dL (8.5-10.1) 7.8 mg/dL (8.5-10.1) Thyroid Stimulating Hormone (TSH) 0.433 uIU/mL (0.358-3.74) Phenytoin (Dilantin) Level 30.7 mcg/mL (10.0-20.0) Phenytoin Last Dose Date 09/12/20 Phenytoin Last Dose Time 1430 BUN/Creatinine Ratio 27 (6-20) Phosphorus Level 2.2 mg/dL (2.6-4.7) Total Bilirubin 0.4 mg/dL (0.2-1.0) Aspartate Amino Transf (AST/SGOT) 21 U/L (15-37) Alanine Aminotransferase (ALT/SGPT) 20 U/L (14-59) Alkaline Phosphatase 99 U/L (46-116) Total Protein 6.6 g/dL (6.4-8.2) Albumin 3.3 g/dL (3.4-5.0) Albumin/Globulin Ratio 1.0 (1.0-1.7) Microbiology 10/11/20 Urine Culture - Final, Complete Medications Current Medications Sodium Chloride 1,000 ml @ 1,000 mls/hr 1X ONCE IV Last administered on 10/11/20at 19:45; Start 10/11/20 at 19:45; Stop 10/11/20 at 20:46; Status DC Sodium Chloride 1,000 ml @ 100 mls/hr 1X ONCE IV Last administered on 10/11/20at 02:33; Start 10/11/20 at 21:00; Stop 10/12/20 at 17:35; Status DC Ondansetron HCl (Zofran) 4 mg PRN Q8HRS PRN IV NAUSEA/VOMITING 1ST CHOICE; Start 10/11/20 at 21:00; Stop 10/12/20 at 20:59; Status DC Morphine Sulfate (Morphine Sulfate) 2 mg PRN Q2HR PRN IV SEVERE PAIN 7-10; Start 10/11/20 at 21:00; Stop 10/12/20 at 20:59; Status DC Phenytoin Sodium (Dilantin) 100 mg 1X ONCE PO ; Start 10/11/20 at 21:00; Stop 10/11/20 at 21:01; Status DC Fosphenytoin Sodium (Cerebyx) 167 mg Q8HRS IV Last administered on 10/13/20at 05:10; Start 10/12/20 at 06:00 Dextrose/Sodium Chloride 1,000 ml @ 75 mls/hr [id number] IV Last administered on 10/12/20at 08:21; Start 10/12/20 at 08:00; Stop 10/12/20 at 17:35; Status DC Ceftriaxone Sodium (Rocephin) 1 gm Q24H IVP Last administered on 10/12/20at 08:21; Start 10/12/20 at 09:00; Stop 10/12/20 at 11:48; Status DC Sodium Chloride (Normal Saline Flush) 3 ml QSHIFT PRN IV AFTER MEDS AND BLOOD DRAWS; Start 10/12/20 at 11:45 Acetaminophen (Tylenol Supp) 650 mg PRN Q4HRS PRN [place] TEMP OVER 100.4F OR MILD PAIN; Start 10/12/20 at 11:45 Docusate Sodium (Colace) 100 mg PRN BID PRN PO HARD STOOLS; Start 10/12/20 at 11:45 Albuterol Sulfate (Ventolin Neb Soln) 2.5 mg PRN Q4HRS PRN NEB SHORTNESS OF BREATH; Start 10/12/20 at 11:45 Guaifenesin (Robitussin) 200 mg PRN Q4HRS PRN PO COUGH; Start 10/12/20 at 11:45 Piperacillin Sod/ Tazobactam Sod 2.25 gm/Sodium Chloride 50 ml @ 100 mls/hr Q6HRS IV Last administered on 10/13/20at 05:10; Start 10/12/20 at 12:00 Heparin Sodium (Porcine) (Heparin Sodium) 5,000 unit Q8HRS SQ Last administered on 10/13/20at 05:09; Start 10/12/20 at 14:00 Famotidine (Pepcid Vial) 20 mg DAILY IVP Last administered on 10/12/20at 14:28; Start 10/12/20 at 14:00 Albumin Human 250 ml @ 62.5 mls/hr Q6HRS IV Last administered on 10/13/20at 06:18; Start 10/12/20 at 14:00; Stop 10/13/20 at 13:59 Dextrose/Sodium Chloride 1,000 ml @ 75 mls/hr [id number] IV Last administered on 10/13/20at 03:07; Start 10/12/20 at 17:45; Stop 10/13/20 at 07:57; Status DC Norepinephrine Bitartrate 8 mg/ Dextrose 258 ml @ 16.157 mls/ hr CONT PRN IV PER PROTOCOL Last administered on 10/12/20at 20:02; Start 10/12/20 at 20:00 Potassium Chloride 40 meq/ Sodium Chloride 1,020 ml @ 100 mls/hr [id number] IV Last administered on 10/13/20at 10:09; Start 10/13/20 at 09:00 Magnesium Sulfate 50 ml @ 25 mls/hr PRN DAILY PRN IV for Mag < 1.7 on am labs; Start 10/13/20 at 08:00 Sodium Chloride 500 ml @ 0 mls/hr QID PRN IV MAP < 65 ; Start 10/13/20 at 08:00 Potassium Phosphate 15 mmol/ Sodium Chloride 255 ml @ 127.5 mls/ hr Q2H IV Last administered on 10/13/20at 10:09; Start 10/13/20 at 09:00; Stop 10/13/20 at 12:59 Active Scripts Active Reported Vitamin D3-Aloe 1,000 Unit Tab (Ca Cmb 1/Vit D3/B-6/Fa/B12/Av) 1 Each Tablet 1 Each PO DAILY Vitamin C (Ascorbic Acid) 500 Mg Capsule.er 500 Mg PO DAILY Spironolactone 25 Mg Tablet 25 Mg PO DAILY Selsun Blue (Salicylic Acid) 325 Ml Shampoo 7 Oz TP TU,FRI Lisinopril 10 Mg Tablet 10 Mg PO DAILY Linzess (Linaclotide) 290 Mcg Capsule 72 Mcg PO DAILY07 Docusate Sodium 100 Mg Capsule 1 Cap PO DAILY 30 Days Dilantin (Phenytoin Sodium Extended) 100 Mg Capsule 200 Mg PO BID Dilantin (Phenytoin Sodium Extended) 100 Mg Capsule 1 Cap PO DAILY16 Atenolol 50 Mg Tablet 50 Mg PO DAILY Children's Aspirin (Aspirin) 81 Mg Tab.chew 81 Mg PO DAILY PRN Acetaminophen 500 Mg Tablet 500 Mg PO Q4HRS PRN Vitals/I & O Vital Sign - Last 24 Hours 10/12/20 10/12/20 10/12/20 10/12/20 11:00 12:00 13:00 14:00 Temp 97.7 97.7 Pulse 79 85 82 88 Resp 12 10 12 12 B/P (MAP) 95/63 (74) 87/61 (70) 94/67 (76) 73/54 (60) Pulse Ox 99 99 99 99 O2 Delivery Room Air Room Air Room Air Room Air 10/12/20 10/12/20 10/12/20 10/12/20 15:00 16:00 17:00 18:00 Temp 97.5 97.5 Pulse 82 83 82 86 Resp 12 12 10 9 B/P (MAP) 81/58 (66) 83/59 (67) 85/53 (64) 69/51 (57) Pulse Ox 99 99 99 99 O2 Delivery Room Air Room Air Room Air Room Air 10/12/20 10/12/20 10/12/20 10/12/20 19:00 19:30 20:00 20:00 Temp 98.2 98.2 Pulse 86 84 84 Resp 9 9 10 B/P (MAP) 70/39 (49) 78/49 (59) 72/55 (61) Pulse Ox 99 100 100 O2 Delivery Room Air Room Air Room Air Room Air 10/12/20 10/12/20 10/12/20 10/12/20 20:30 21:00 21:30 22:00 Pulse 78 74 76 78 Resp 12 10 8 9 B/P (MAP) 86/60 (69) 86/60 (69) 95/71 (79) 94/49 (64) Pulse Ox 98 99 99 97 O2 Delivery Room Air Room Air Room Air Room Air 10/12/20 10/12/20 10/12/20 10/13/20 22:30 23:00 23:59 00:00 Temp 98.0 98.0 Pulse 72 71 69 Resp 9 8 10 B/P (MAP) 95/62 (73) 89/55 (66) 104/71 (82) Pulse Ox 99 98 99 O2 Delivery Room Air Room Air Room Air Room Air 10/13/20 10/13/20 10/13/20 10/13/20 00:30 01:00 01:30 02:00 Pulse 70 68 68 70 Resp 12 7 10 10 B/P (MAP) 104/68 (80) 92/60 (71) 109/77 (88) 101/71 (81) Pulse Ox 99 100 99 98 O2 Delivery Room Air Room Air Room Air Room Air 10/13/20 10/13/20 10/13/20 10/13/20 02:30 03:00 03:30 04:00 Pulse 72 68 74 Resp 12 10 9 B/P (MAP) 111/70 (84) 111/70 (84) 74/51 (59) Pulse Ox 99 99 97 O2 Delivery Room Air Room Air Room Air Room Air 10/13/20 10/13/20 10/13/20 10/13/20 04:00 04:30 05:00 05:30 Temp 98.0 98.0 Pulse 74 72 78 78 Resp 9 9 16 13 B/P (MAP) 86/58 (67) 93/63 (73) 88/63 (71) 96/65 (75) Pulse Ox 97 98 96 97 O2 Delivery Room Air Room Air Room Air Room Air 10/13/20 10/13/20 10/13/20 10/13/20 06:00 07:00 08:00 08:00 Temp 98.3 98.3 Pulse 74 62 56 Resp 12 13 10 B/P (MAP) 86/64 (71) 116/76 (89) 118/81 (93) Pulse Ox 98 99 100 O2 Delivery Room Air Room Air Room Air Room Air 10/13/20 10/13/20 09:00 10:00 Pulse 80 81 Resp 19 18 B/P (MAP) 123/79 (94) 126/83 (97) Pulse Ox 98 98 O2 Delivery Room Air Room Air Intake and Output 10/12/20 10/12/20 10/13/20 14:59 22:59 06:59 Intake Total 0 ml 1850 ml 917 ml Output Total 590 ml 530 ml Balance 0 ml 1260 ml 387 ml Nutrition Consultation Dietary Evaluation: Recommendations by RD: Dietary education by RD, Increase Calorie Intake, Protein supplementation Comments: REC advance diet as able within 24 - 72 hrs, per RN pt will need [employer] eval due to pt's altered mental status REC goal diet regular or renal pending labs, textures per [employer] REC oral supplements (nepro or Ensure) q day or more often per pt preference Expected Outcomes/Goals: diet advancement Malnutrition Findings: Food and Nutrition Intake (Mod: <75% est energy req 7days Body Fat Depletion (Non Severe: Mild Depletion Weight Status: Appropriate Justicifation of Admission Dx: Justifications for Admission: Justification of Admission Dx: N/A GINO MOYER MD Oct 13, 2020 10:15
[2020-10-13] MEDS: FAMOTIDINE 20 MG/2 ML VIAL IVP SCH (11:15)
--- NOTE | 2020-10-13 12:35 | PDOC ---
PROGRESS NOTES Date of Service DATE: 10/13/20 TIME: 12:33 Subjective Subjective Patient seen and evaluated Objective Objective Vital Signs Date Time Temp Pulse Resp B/P (MAP) Pulse Ox O2 Delivery O2 Flow Rate FiO2 10/13/20 11:00 81 11 120/82 (95) 98 Room Air 10/13/20 08:00 98.3 98.3 Intake and Output 10/13/20 07:00 Intake Total 2767 ml Output Total 1120 ml Balance 1647 ml Intake Oral 0 ml IV Total 2767 ml Output Urine Total 1120 ml # Voids 1 Physical Exam Abdomen: Normal bowel sounds Heart: Regular rate General: No acute distress Lungs: Other (Mildly decreased breath sounds) Assessment Assessment Problems Medical Problems: (1) Acute renal failure Status: Acute (2) Hypernatremia Status: Acute Hypotension: probably due to severe dehydration. No arrhythmias. Blood pressure continues to improve after IV fluids. Severe MILVIA with hypernatremia: IV fluids as above. Renal evaluating. 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 Labs Laboratory Tests Test 10/11/20 19:35 10/11/20 19:40 10/12/20 16:00 10/13/20 05:00 White Blood Count 11.1 x10^3/uL (4.0-11.0) 8.1 x10^3/uL (4.0-11.0) 8.8 x10^3/uL (4.0-11.0) Red Blood Count 4.69 x10^6/uL (3.50-5.40) 3.86 x10^6/uL (3.50-5.40) 3.55 x10^6/uL (3.50-5.40) Hemoglobin 13.8 g/dL (12.0-15.5) 11.7 g/dL (12.0-15.5) 10.7 g/dL (12.0-15.5) Hematocrit 43.8 % (36.0-47.0) 36.1 % (36.0-47.0) 32.8 % (36.0-47.0) Mean Corpuscular Volume 94 fL (79-100) 94 fL (79-100) 92 fL (79-100) Mean Corpuscular Hemoglobin 29 pg (25-35) 30 pg (25-35) 30 pg (25-35) Mean Corpuscular Hemoglobin Concent 31 g/dL (31-37) 33 g/dL (31-37) 33 g/dL (31-37) Red Cell Distribution Width 14.2 % (11.5-14.5) 14.4 % (11.5-14.5) 14.0 % (11.5-14.5) Platelet Count 218 x10^3/uL (140-400) 144 x10^3/uL (140-400) 152 x10^3/uL (140-400) Neutrophils (%) (Auto) 61 % (31-73) 64 % (31-73) 57 % (31-73) Lymphocytes (%) (Auto) 27 % (24-48) 24 % (24-48) 26 % (24-48) Monocytes (%) (Auto) 11 % (0-9) 10 % (0-9) 9 % (0-9) Eosinophils (%) (Auto) 1 % (0-3) 2 % (0-3) 7 % (0-3) Basophils (%) (Auto) 0 % (0-3) 0 % (0-3) 0 % (0-3) Neutrophils # (Auto) 6.7 x10^3/uL (1.8-7.7) 5.2 x10^3/uL (1.8-7.7) 5.0 x10^3/uL (1.8-7.7) Lymphocytes # (Auto) 2.9 x10^3/uL (1.0-4.8) 1.9 x10^3/uL (1.0-4.8) 2.3 x10^3/uL (1.0-4.8) Monocytes # (Auto) 1.2 x10^3/uL (0.0-1.1) 0.8 x10^3/uL (0.0-1.1) 0.8 x10^3/uL (0.0-1.1) Eosinophils # (Auto) 0.1 x10^3/uL (0.0-0.7) 0.1 x10^3/uL (0.0-0.7) 0.6 x10^3/uL (0.0-0.7) Basophils # (Auto) 0.0 x10^3/uL (0.0-0.2) 0.0 x10^3/uL (0.0-0.2) 0.0 x10^3/uL (0.0-0.2) Sodium Level 164 mmol/L (136-145) 161 mmol/L (136-145) 155 mmol/L (136-145) Potassium Level 4.3 mmol/L (3.5-5.1) 3.5 mmol/L (3.5-5.1) 2.9 mmol/L (3.5-5.1) Chloride Level 123 mmol/L (98-107) 121 mmol/L (98-107) 118 mmol/L (98-107) Carbon Dioxide Level 28 mmol/L (21-32) 26 mmol/L (21-32) 24 mmol/L (21-32) Anion Gap 13 (6-14) 14 (6-14) 13 (6-14) Blood Urea Nitrogen 77 mg/dL (7-20) 70 mg/dL (7-20) 46 mg/dL (7-20) Creatinine 3.6 mg/dL (0.6-1.0) 2.0 mg/dL (0.6-1.0) 1.7 mg/dL (0.6-1.0) Estimated GFR (Cockcroft-Gault) 12.8 25.2 30.5 BUN/Creatinine Ratio 21 (6-20) 27 (6-20) Glucose Level 125 mg/dL (70-99) 306 mg/dL (70-99) 250 mg/dL (70-99) Calcium Level 9.1 mg/dL (8.5-10.1) 7.9 mg/dL (8.5-10.1) 7.8 mg/dL (8.5-10.1) Magnesium Level 3.0 mg/dL (1.8-2.4) Total Bilirubin 0.5 mg/dL (0.2-1.0) 0.4 mg/dL (0.2-1.0) Aspartate Amino Transf (AST/SGOT) 45 U/L (15-37) 21 U/L (15-37) Alanine Aminotransferase (ALT/SGPT) 43 U/L (14-59) 20 U/L (14-59) Alkaline Phosphatase 146 U/L (46-116) 99 U/L (46-116) Ammonia < 10 mcmol/L (11-34) Creatine Kinase 361 U/L (26-192) ID-Tza-D-Type Natriuretic Peptide 620 pg/mL (0-124) Total Protein 8.7 g/dL (6.4-8.2) 6.6 g/dL (6.4-8.2) Albumin 3.7 g/dL (3.4-5.0) 3.3 g/dL (3.4-5.0) Albumin/Globulin Ratio 0.7 (1.0-1.7) 1.0 (1.0-1.7) Urine Collection Type U cath Urine Color Eleanor Urine Clarity Clear Urine pH 5.5 (<5.0-8.0) Urine Specific [place] 1.025 (1.000-1.030) Urine Protein 30 mg/dL (NEG-TRACE) Urine Glucose (UA) Negative mg/dL (NEG) Urine Ketones (Stick) Trace mg/dL (NEG) Urine Blood Negative (NEG) Urine Nitrite Negative (NEG) Urine Bilirubin Moderate (NEG) Urine Urobilinogen Dipstick 1.0 mg/dL (0.2 mg/dL) Urine Leukocyte Esterase Trace (NEG) Urine RBC 0 /HPF (0-2) Urine WBC 20-40 /HPF (0-4) Urine Squamous Epithelial Cells Few /LPF Urine Amorphous Sediment Present /HPF Urine Bacteria Moderate /HPF (0-FEW) Urine Hyaline Casts Moderate /HPF Urine Mucus Mod /LPF Thyroid Stimulating Hormone (TSH) 0.433 uIU/mL (0.358-3.74) Phenytoin (Dilantin) Level 30.7 mcg/mL (10.0-20.0) Phenytoin Last Dose Date 09/12/20 Phenytoin Last Dose Time 1430 Phosphorus Level 2.2 mg/dL (2.6-4.7) Laboratory Tests Test 10/12/20 16:00 10/13/20 05:00 White Blood Count 8.1 x10^3/uL (4.0-11.0) 8.8 x10^3/uL (4.0-11.0) Red Blood Count 3.86 x10^6/uL (3.50-5.40) 3.55 x10^6/uL (3.50-5.40) Hemoglobin 11.7 g/dL (12.0-15.5) 10.7 g/dL (12.0-15.5) Hematocrit 36.1 % (36.0-47.0) 32.8 % (36.0-47.0) Mean Corpuscular Volume 94 fL (79-100) 92 fL (79-100) Mean Corpuscular Hemoglobin 30 pg (25-35) 30 pg (25-35) Mean Corpuscular Hemoglobin Concent 33 g/dL (31-37) 33 g/dL (31-37) Red Cell Distribution Width 14.4 % (11.5-14.5) 14.0 % (11.5-14.5) Platelet Count 144 x10^3/uL (140-400) 152 x10^3/uL (140-400) Neutrophils (%) (Auto) 64 % (31-73) 57 % (31-73) Lymphocytes (%) (Auto) 24 % (24-48) 26 % (24-48) Monocytes (%) (Auto) 10 % (0-9) 9 % (0-9) Eosinophils (%) (Auto) 2 % (0-3) 7 % (0-3) Basophils (%) (Auto) 0 % (0-3) 0 % (0-3) Neutrophils # (Auto) 5.2 x10^3/uL (1.8-7.7) 5.0 x10^3/uL (1.8-7.7) Lymphocytes # (Auto) 1.9 x10^3/uL (1.0-4.8) 2.3 x10^3/uL (1.0-4.8) Monocytes # (Auto) 0.8 x10^3/uL (0.0-1.1) 0.8 x10^3/uL (0.0-1.1) Eosinophils # (Auto) 0.1 x10^3/uL (0.0-0.7) 0.6 x10^3/uL (0.0-0.7) Basophils # (Auto) 0.0 x10^3/uL (0.0-0.2) 0.0 x10^3/uL (0.0-0.2) Sodium Level 161 mmol/L (136-145) 155 mmol/L (136-145) Potassium Level 3.5 mmol/L (3.5-5.1) 2.9 mmol/L (3.5-5.1) Chloride Level 121 mmol/L (98-107) 118 mmol/L (98-107) Carbon Dioxide Level 26 mmol/L (21-32) 24 mmol/L (21-32) Anion Gap 14 (6-14) 13 (6-14) Blood Urea Nitrogen 70 mg/dL (7-20) 46 mg/dL (7-20) Creatinine 2.0 mg/dL (0.6-1.0) 1.7 mg/dL (0.6-1.0) Estimated GFR (Cockcroft-Gault) 25.2 30.5 Glucose Level 306 mg/dL (70-99) 250 mg/dL (70-99) Calcium Level 7.9 mg/dL (8.5-10.1) 7.8 mg/dL (8.5-10.1) Thyroid Stimulating Hormone (TSH) 0.433 uIU/mL (0.358-3.74) Phenytoin (Dilantin) Level 30.7 mcg/mL (10.0-20.0) Phenytoin Last Dose Date 09/12/20 Phenytoin Last Dose Time 1430 BUN/Creatinine Ratio 27 (6-20) Phosphorus Level 2.2 mg/dL (2.6-4.7) Total Bilirubin 0.4 mg/dL (0.2-1.0) Aspartate Amino Transf (AST/SGOT) 21 U/L (15-37) Alanine Aminotransferase (ALT/SGPT) 20 U/L (14-59) Alkaline Phosphatase 99 U/L (46-116) Total Protein 6.6 g/dL (6.4-8.2) Albumin 3.3 g/dL (3.4-5.0) Albumin/Globulin Ratio 1.0 (1.0-1.7) Microbiology 10/11/20 Urine Culture - Final, Complete Medications Current Medications Sodium Chloride 1,000 ml @ 1,000 mls/hr 1X ONCE IV Last administered on 10/11/20at 19:45; Start 10/11/20 at 19:45; Stop 10/11/20 at 20:46; Status DC Sodium Chloride 1,000 ml @ 100 mls/hr 1X ONCE IV Last administered on 10/11/20at 02:33; Start 10/11/20 at 21:00; Stop 10/12/20 at 17:35; Status DC Ondansetron HCl (Zofran) 4 mg PRN Q8HRS PRN IV NAUSEA/VOMITING 1ST CHOICE; Start 10/11/20 at 21:00; Stop 10/12/20 at 20:59; Status DC Morphine Sulfate (Morphine Sulfate) 2 mg PRN Q2HR PRN IV SEVERE PAIN 7-10; Start 10/11/20 at 21:00; Stop 10/12/20 at 20:59; Status DC Phenytoin Sodium (Dilantin) 100 mg 1X ONCE PO ; Start 10/11/20 at 21:00; Stop 10/11/20 at 21:01; Status DC Fosphenytoin Sodium (Cerebyx) 167 mg Q8HRS IV Last administered on 10/13/20at 05:10; Start 10/12/20 at 06:00 Dextrose/Sodium Chloride 1,000 ml @ 75 mls/hr [id number] IV Last administered on 10/12/20at 08:21; Start 10/12/20 at 08:00; Stop 10/12/20 at 17:35; Status DC Ceftriaxone Sodium (Rocephin) 1 gm Q24H IVP Last administered on 10/12/20at 08:21; Start 10/12/20 at 09:00; Stop 10/12/20 at 11:48; Status DC Sodium Chloride (Normal Saline Flush) 3 ml QSHIFT PRN IV AFTER MEDS AND BLOOD DRAWS; Start 10/12/20 at 11:45 Acetaminophen (Tylenol Supp) 650 mg PRN Q4HRS PRN MA TEMP OVER 100.4F OR MILD PAIN; Start 10/12/20 at 11:45 Docusate Sodium (Colace) 100 mg PRN BID PRN PO HARD STOOLS; Start 10/12/20 at 11:45 Albuterol Sulfate (Ventolin Neb Soln) 2.5 mg PRN Q4HRS PRN NEB SHORTNESS OF BREATH; Start 10/12/20 at 11:45 Guaifenesin (Robitussin) 200 mg PRN Q4HRS PRN PO COUGH; Start 10/12/20 at 11:45 Piperacillin Sod/ Tazobactam Sod 2.25 gm/Sodium Chloride 50 ml @ 100 mls/hr Q6HRS IV Last administered on 10/13/20at 12:18; Start 10/12/20 at 12:00 Heparin Sodium (Porcine) (Heparin Sodium) 5,000 unit Q8HRS SQ Last administered on 10/13/20at 05:09; Start 10/12/20 at 14:00 Famotidine (Pepcid Vial) 20 mg DAILY IVP Last administered on 10/13/20at 11:15; Start 10/12/20 at 14:00 Albumin Human 250 ml @ 62.5 mls/hr Q6HRS IV Last administered on 10/13/20at 06:18; Start 10/12/20 at 14:00; Stop 10/13/20 at 13:59 Dextrose/Sodium Chloride 1,000 ml @ 75 mls/hr [id number] IV Last administered on 10/13/20at 03:07; Start 10/12/20 at 17:45; Stop 10/13/20 at 07:57; Status DC Norepinephrine Bitartrate 8 mg/ Dextrose 258 ml @ 16.157 mls/ hr CONT PRN IV PER PROTOCOL Last administered on 10/12/20at 20:02; Start 10/12/20 at 20:00 Potassium Chloride 40 meq/ Sodium Chloride 1,020 ml @ 100 mls/hr [id number] IV Last administered on 10/13/20at 10:09; Start 10/13/20 at 09:00 Magnesium Sulfate 50 ml @ 25 mls/hr PRN DAILY PRN IV for Mag < 1.7 on am labs; Start 10/13/20 at 08:00 Sodium Chloride 500 ml @ 0 mls/hr QID PRN IV MAP < 65 ; Start 10/13/20 at 08:00 Potassium Phosphate 15 mmol/ Sodium Chloride 255 ml @ 127.5 mls/ hr Q2H IV Last administered on 10/13/20at 12:22; Start 10/13/20 at 09:00; Stop 10/13/20 at 12:59 Active Scripts Active Reported Vitamin D3-Aloe 1,000 Unit Tab (Ca Cmb 1/Vit D3/B-6/Fa/B12/Av) 1 Each Tablet 1 Each PO DAILY Vitamin C (Ascorbic Acid) 500 Mg Capsule.er 500 Mg PO DAILY Spironolactone 25 Mg Tablet 25 Mg PO DAILY Selsun Blue (Salicylic Acid) 325 Ml Shampoo 7 Oz TP TU,FRI Lisinopril 10 Mg Tablet 10 Mg PO DAILY Linzess (Linaclotide) 290 Mcg Capsule 72 Mcg PO DAILY07 Docusate Sodium 100 Mg Capsule 1 Cap PO DAILY 30 Days Dilantin (Phenytoin Sodium Extended) 100 Mg Capsule 200 Mg PO BID Dilantin (Phenytoin Sodium Extended) 100 Mg Capsule 1 Cap PO DAILY16 Atenolol 50 Mg Tablet 50 Mg PO DAILY Children's Aspirin (Aspirin) 81 Mg Tab.chew 81 Mg PO DAILY PRN Acetaminophen 500 Mg Tablet 500 Mg PO Q4HRS PRN Vitals/I & O Vital Sign - Last 24 Hours 10/12/20 10/12/20 10/12/20 10/12/20 13:00 14:00 15:00 16:00 Temp 97.7 97.7 Pulse 82 88 82 83 Resp 12 12 12 12 B/P (MAP) 94/67 (76) 73/54 (60) 81/58 (66) 83/59 (67) Pulse Ox 99 99 99 99 O2 Delivery Room Air Room Air Room Air Room Air 10/12/20 10/12/20 10/12/20 10/12/20 17:00 18:00 19:00 19:30 Temp 97.5 97.5 Pulse 82 86 86 84 Resp 10 9 9 9 B/P (MAP) 85/53 (64) 69/51 (57) 70/39 (49) 78/49 (59) Pulse Ox 99 99 99 100 O2 Delivery Room Air Room Air Room Air Room Air 10/12/20 10/12/20 10/12/20 10/12/20 20:00 20:00 20:30 21:00 Temp 98.2 98.2 Pulse 84 78 74 Resp 10 12 10 B/P (MAP) 72/55 (61) 86/60 (69) 86/60 (69) Pulse Ox 100 98 99 O2 Delivery Room Air Room Air Room Air Room Air 12/10/12/20 10/12/20 10/12/20 21:30 22:00 22:30 23:00 Pulse 76 78 72 71 Resp 8 9 9 8 B/P (MAP) 95/71 (79) 94/49 (64) 95/62 (73) 89/55 (66) Pulse Ox 99 97 99 98 O2 Delivery Room Air Room Air Room Air Room Air 10/12/20 10/13/20 10/13/20 10/13/20 23:59 00:00 00:30 01:00 Temp 98.0 98.0 Pulse 69 70 68 Resp 10 12 7 B/P (MAP) 104/71 (82) 104/68 (80) 92/60 (71) Pulse Ox 99 99 100 O2 Delivery Room Air Room Air Room Air Room Air 10/13/20 10/13/20 10/13/20 10/13/20 01:30 02:00 02:30 03:00 Pulse 68 70 72 68 Resp 10 10 12 10 B/P (MAP) 109/77 (88) 101/71 (81) 111/70 (84) 111/70 (84) Pulse Ox 99 98 99 99 O2 Delivery Room Air Room Air Room Air Room Air 10/13/20 10/13/20 10/13/20 10/13/20 03:30 04:00 04:00 04:30 Temp 98.0 98.0 Pulse 74 74 72 Resp 9 9 9 B/P (MAP) 74/51 (59) 86/58 (67) 93/63 (73) Pulse Ox 97 97 98 O2 Delivery Room Air Room Air Room Air Room Air 10/13/20 10/13/20 10/13/20 10/13/20 05:00 05:30 06:00 07:00 Pulse 78 78 74 62 Resp 16 13 12 13 B/P (MAP) 88/63 (71) 96/65 (75) 86/64 (71) 116/76 (89) Pulse Ox 96 97 98 99 O2 Delivery Room Air Room Air Room Air Room Air 10/13/20 10/13/20 10/13/20 10/13/20 08:00 08:00 09:00 10:00 Temp 98.3 98.3 Pulse 56 80 81 Resp 10 19 18 B/P (MAP) 118/81 (93) 123/79 (94) 126/83 (97) Pulse Ox 100 98 98 O2 Delivery Room Air Room Air Room Air Room Air 10/13/20 11:00 Pulse 81 Resp 11 B/P (MAP) 120/82 (95) Pulse Ox 98 O2 Delivery Room Air Intake and Output 10/12/20 10/12/20 10/13/20 15:00 23:00 07:00 Intake Total 0 ml 1850 ml 917 ml Output Total 590 ml 530 ml Balance 0 ml 1260 ml 387 ml Justifications for Admission General Conditions Poss tachycardia?: Yes Justification for admission: Patient has tachycardia (> 100 beats per minute) which is not readily corrected by appropriate treatment within 12 to 24 hours. SEVERE DEHYDRATION, MILVIA Other Justification Nutrition Consultation Dietary Evaluation: Recommendations by RD: Dietary education by RD, Increase Calorie Intake, Protein supplementation Comments: REC advance diet as able within 24 - 72 hrs, per RN pt will need [employer] eval due to pt's altered mental status REC goal diet regular or renal pending labs, textures per [employer] REC oral supplements (nepro or Ensure) q day or more often per pt preference Expected Outcomes/Goals: diet advancement Malnutrition Findings: Food and Nutrition Intake (Mod: <75% est energy req 7days Body Fat Depletion (Non Severe: Mild Depletion Weight Status: Appropriate ISIS SERRANO MD Oct 13, 2020 12:35
[2020-10-13] MEDS: NOREPINEPHRINE VIAL 8 MG in IV DEXTROSE 5% 250 ML IV PRN (12:36)
--- NOTE | 2020-10-13 12:53 | PDOC ---
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 Hypernatremia and acute kidney injury, apparently due to her refusal to eat Recommendations: Repeat head CT tomorrow Treat medical diseases Continue intravenous fosphenytoin Objective Vital Signs Date Time Temp Pulse Resp B/P (MAP) Pulse Ox O2 Delivery O2 Flow Rate FiO2 10/13/20 12:30 108/74 (85) 10/13/20 12:00 98.2 74 16 99 Room Air 98.2 Intake and Output 10/13/20 07:00 Intake Total 2767 ml Output Total 1120 ml Balance 1647 ml Intake Oral 0 ml IV Total 2767 ml Output Urine Total 1120 ml # Voids 1 PHYSICAL EXAM Physical Exam: Alert. Nods yes and no to questions, remains nonverbal, follows commands PERRL. EOMI. CN: Right visual field cut Muscle tone: Increased on right Muscle strength: 4/5 DTR: 2+ Plantar reflex: flexor Gait: not examined in bed. Sensory exam: no abnormal findings. No cerebellar signs elicited. Review of Relevant I have reviewed the following items crissy (where applicable) has been applied. Labs Laboratory Tests Test 10/11/20 19:35 10/11/20 19:40 10/12/20 16:00 10/13/20 05:00 White Blood Count 11.1 x10^3/uL (4.0-11.0) 8.1 x10^3/uL (4.0-11.0) 8.8 x10^3/uL (4.0-11.0) Red Blood Count 4.69 x10^6/uL (3.50-5.40) 3.86 x10^6/uL (3.50-5.40) 3.55 x10^6/uL (3.50-5.40) Hemoglobin 13.8 g/dL (12.0-15.5) 11.7 g/dL (12.0-15.5) 10.7 g/dL (12.0-15.5) Hematocrit 43.8 % (36.0-47.0) 36.1 % (36.0-47.0) 32.8 % (36.0-47.0) Mean Corpuscular Volume 94 fL (79-100) 94 fL (79-100) 92 fL (79-100) Mean Corpuscular Hemoglobin 29 pg (25-35) 30 pg (25-35) 30 pg (25-35) Mean Corpuscular Hemoglobin Concent 31 g/dL (31-37) 33 g/dL (31-37) 33 g/dL (31-37) Red Cell Distribution Width 14.2 % (11.5-14.5) 14.4 % (11.5-14.5) 14.0 % (11.5-14.5) Platelet Count 218 x10^3/uL (140-400) 144 x10^3/uL (140-400) 152 x10^3/uL (140-400) Neutrophils (%) (Auto) 61 % (31-73) 64 % (31-73) 57 % (31-73) Lymphocytes (%) (Auto) 27 % (24-48) 24 % (24-48) 26 % (24-48) Monocytes (%) (Auto) 11 % (0-9) 10 % (0-9) 9 % (0-9) Eosinophils (%) (Auto) 1 % (0-3) 2 % (0-3) 7 % (0-3) Basophils (%) (Auto) 0 % (0-3) 0 % (0-3) 0 % (0-3) Neutrophils # (Auto) 6.7 x10^3/uL (1.8-7.7) 5.2 x10^3/uL (1.8-7.7) 5.0 x10^3/uL (1.8-7.7) Lymphocytes # (Auto) 2.9 x10^3/uL (1.0-4.8) 1.9 x10^3/uL (1.0-4.8) 2.3 x10^3/uL (1.0-4.8) Monocytes # (Auto) 1.2 x10^3/uL (0.0-1.1) 0.8 x10^3/uL (0.0-1.1) 0.8 x10^3/uL (0.0-1.1) Eosinophils # (Auto) 0.1 x10^3/uL (0.0-0.7) 0.1 x10^3/uL (0.0-0.7) 0.6 x10^3/uL (0.0-0.7) Basophils # (Auto) 0.0 x10^3/uL (0.0-0.2) 0.0 x10^3/uL (0.0-0.2) 0.0 x10^3/uL (0.0-0.2) Sodium Level 164 mmol/L (136-145) 161 mmol/L (136-145) 155 mmol/L (136-145) Potassium Level 4.3 mmol/L (3.5-5.1) 3.5 mmol/L (3.5-5.1) 2.9 mmol/L (3.5-5.1) Chloride Level 123 mmol/L (98-107) 121 mmol/L (98-107) 118 mmol/L (98-107) Carbon Dioxide Level 28 mmol/L (21-32) 26 mmol/L (21-32) 24 mmol/L (21-32) Anion Gap 13 (6-14) 14 (6-14) 13 (6-14) Blood Urea Nitrogen 77 mg/dL (7-20) 70 mg/dL (7-20) 46 mg/dL (7-20) Creatinine 3.6 mg/dL (0.6-1.0) 2.0 mg/dL (0.6-1.0) 1.7 mg/dL (0.6-1.0) Estimated GFR (Cockcroft-Gault) 12.8 25.2 30.5 BUN/Creatinine Ratio 21 (6-20) 27 (6-20) Glucose Level 125 mg/dL (70-99) 306 mg/dL (70-99) 250 mg/dL (70-99) Calcium Level 9.1 mg/dL (8.5-10.1) 7.9 mg/dL (8.5-10.1) 7.8 mg/dL (8.5-10.1) Magnesium Level 3.0 mg/dL (1.8-2.4) Total Bilirubin 0.5 mg/dL (0.2-1.0) 0.4 mg/dL (0.2-1.0) Aspartate Amino Transf (AST/SGOT) 45 U/L (15-37) 21 U/L (15-37) Alanine Aminotransferase (ALT/SGPT) 43 U/L (14-59) 20 U/L (14-59) Alkaline Phosphatase 146 U/L (46-116) 99 U/L (46-116) Ammonia < 10 mcmol/L (11-34) Creatine Kinase 361 U/L (26-192) ZJ-Kyn-R-Type Natriuretic Peptide 620 pg/mL (0-124) Total Protein 8.7 g/dL (6.4-8.2) 6.6 g/dL (6.4-8.2) Albumin 3.7 g/dL (3.4-5.0) 3.3 g/dL (3.4-5.0) Albumin/Globulin Ratio 0.7 (1.0-1.7) 1.0 (1.0-1.7) Urine Collection Type U cath Urine Color Eleanor Urine Clarity Clear Urine pH 5.5 (<5.0-8.0) Urine Specific Noble 1.025 (1.000-1.030) Urine Protein 30 mg/dL (NEG-TRACE) Urine Glucose (UA) Negative mg/dL (NEG) Urine Ketones (Stick) Trace mg/dL (NEG) Urine Blood Negative (NEG) Urine Nitrite Negative (NEG) Urine Bilirubin Moderate (NEG) Urine Urobilinogen Dipstick 1.0 mg/dL (0.2 mg/dL) Urine Leukocyte Esterase Trace (NEG) Urine RBC 0 /HPF (0-2) Urine WBC 20-40 /HPF (0-4) Urine Squamous Epithelial Cells Few /LPF Urine Amorphous Sediment Present /HPF Urine Bacteria Moderate /HPF (0-FEW) Urine Hyaline Casts Moderate /HPF Urine Mucus Mod /LPF Thyroid Stimulating Hormone (TSH) 0.433 uIU/mL (0.358-3.74) Phenytoin (Dilantin) Level 30.7 mcg/mL (10.0-20.0) Phenytoin Last Dose Date 09/12/20 Phenytoin Last Dose Time 1430 Phosphorus Level 2.2 mg/dL (2.6-4.7) Laboratory Tests Test 10/12/20 16:00 10/13/20 05:00 White Blood Count 8.1 x10^3/uL (4.0-11.0) 8.8 x10^3/uL (4.0-11.0) Red Blood Count 3.86 x10^6/uL (3.50-5.40) 3.55 x10^6/uL (3.50-5.40) Hemoglobin 11.7 g/dL (12.0-15.5) 10.7 g/dL (12.0-15.5) Hematocrit 36.1 % (36.0-47.0) 32.8 % (36.0-47.0) Mean Corpuscular Volume 94 fL (79-100) 92 fL (79-100) Mean Corpuscular Hemoglobin 30 pg (25-35) 30 pg (25-35) Mean Corpuscular Hemoglobin Concent 33 g/dL (31-37) 33 g/dL (31-37) Red Cell Distribution Width 14.4 % (11.5-14.5) 14.0 % (11.5-14.5) Platelet Count 144 x10^3/uL (140-400) 152 x10^3/uL (140-400) Neutrophils (%) (Auto) 64 % (31-73) 57 % (31-73) Lymphocytes (%) (Auto) 24 % (24-48) 26 % (24-48) Monocytes (%) (Auto) 10 % (0-9) 9 % (0-9) Eosinophils (%) (Auto) 2 % (0-3) 7 % (0-3) Basophils (%) (Auto) 0 % (0-3) 0 % (0-3) Neutrophils # (Auto) 5.2 x10^3/uL (1.8-7.7) 5.0 x10^3/uL (1.8-7.7) Lymphocytes # (Auto) 1.9 x10^3/uL (1.0-4.8) 2.3 x10^3/uL (1.0-4.8) Monocytes # (Auto) 0.8 x10^3/uL (0.0-1.1) 0.8 x10^3/uL (0.0-1.1) Eosinophils # (Auto) 0.1 x10^3/uL (0.0-0.7) 0.6 x10^3/uL (0.0-0.7) Basophils # (Auto) 0.0 x10^3/uL (0.0-0.2) 0.0 x10^3/uL (0.0-0.2) Sodium Level 161 mmol/L (136-145) 155 mmol/L (136-145) Potassium Level 3.5 mmol/L (3.5-5.1) 2.9 mmol/L (3.5-5.1) Chloride Level 121 mmol/L (98-107) 118 mmol/L (98-107) Carbon Dioxide Level 26 mmol/L (21-32) 24 mmol/L (21-32) Anion Gap 14 (6-14) 13 (6-14) Blood Urea Nitrogen 70 mg/dL (7-20) 46 mg/dL (7-20) Creatinine 2.0 mg/dL (0.6-1.0) 1.7 mg/dL (0.6-1.0) Estimated GFR (Cockcroft-Gault) 25.2 30.5 Glucose Level 306 mg/dL (70-99) 250 mg/dL (70-99) Calcium Level 7.9 mg/dL (8.5-10.1) 7.8 mg/dL (8.5-10.1) Thyroid Stimulating Hormone (TSH) 0.433 uIU/mL (0.358-3.74) Phenytoin (Dilantin) Level 30.7 mcg/mL (10.0-20.0) Phenytoin Last Dose Date 09/12/20 Phenytoin Last Dose Time 1430 BUN/Creatinine Ratio 27 (6-20) Phosphorus Level 2.2 mg/dL (2.6-4.7) Total Bilirubin 0.4 mg/dL (0.2-1.0) Aspartate Amino Transf (AST/SGOT) 21 U/L (15-37) Alanine Aminotransferase (ALT/SGPT) 20 U/L (14-59) Alkaline Phosphatase 99 U/L (46-116) Total Protein 6.6 g/dL (6.4-8.2) Albumin 3.3 g/dL (3.4-5.0) Albumin/Globulin Ratio 1.0 (1.0-1.7) Microbiology 10/11/20 Urine Culture - Final, Complete Medications Current Medications Sodium Chloride 1,000 ml @ 1,000 mls/hr 1X ONCE IV Last administered on 10/11/20at 19:45; Start 10/11/20 at 19:45; Stop 10/11/20 at 20:46; Status DC Sodium Chloride 1,000 ml @ 100 mls/hr 1X ONCE IV Last administered on 10/11/20at 02:33; Start 10/11/20 at 21:00; Stop 10/12/20 at 17:35; Status DC Ondansetron HCl (Zofran) 4 mg PRN Q8HRS PRN IV NAUSEA/VOMITING 1ST CHOICE; Start 10/11/20 at 21:00; Stop 10/12/20 at 20:59; Status DC Morphine Sulfate (Morphine Sulfate) 2 mg PRN Q2HR PRN IV SEVERE PAIN 7-10; Start 10/11/20 at 21:00; Stop 10/12/20 at 20:59; Status DC Phenytoin Sodium (Dilantin) 100 mg 1X ONCE PO ; Start 10/11/20 at 21:00; Stop 10/11/20 at 21:01; Status DC Fosphenytoin Sodium (Cerebyx) 167 mg Q8HRS IV Last administered on 10/13/20at 05:10; Start 10/12/20 at 06:00 Dextrose/Sodium Chloride 1,000 ml @ 75 mls/hr [id number] IV Last administered on 10/12/20at 08:21; Start 10/12/20 at 08:00; Stop 10/12/20 at 17:35; Status DC Ceftriaxone Sodium (Rocephin) 1 gm Q24H IVP Last administered on 10/12/20at 08:21; Start 10/12/20 at 09:00; Stop 10/12/20 at 11:48; Status DC Sodium Chloride (Normal Saline Flush) 3 ml QSHIFT PRN IV AFTER MEDS AND BLOOD DRAWS; Start 10/12/20 at 11:45 Acetaminophen (Tylenol Supp) 650 mg PRN Q4HRS PRN UT TEMP OVER 100.4F OR MILD PAIN; Start 10/12/20 at 11:45 Docusate Sodium (Colace) 100 mg PRN BID PRN PO HARD STOOLS; Start 10/12/20 at 11:45 Albuterol Sulfate (Ventolin Neb Soln) 2.5 mg PRN Q4HRS PRN NEB SHORTNESS OF BREATH; Start 10/12/20 at 11:45 Guaifenesin (Robitussin) 200 mg PRN Q4HRS PRN PO COUGH; Start 10/12/20 at 11:45 Piperacillin Sod/ Tazobactam Sod 2.25 gm/Sodium Chloride 50 ml @ 100 mls/hr Q6HRS IV Last administered on 10/13/20at 12:18; Start 10/12/20 at 12:00 Heparin Sodium (Porcine) (Heparin Sodium) 5,000 unit Q8HRS SQ Last administered on 10/13/20at 05:09; Start 10/12/20 at 14:00 Famotidine (Pepcid Vial) 20 mg DAILY IVP Last administered on 10/13/20at 11:15; Start 10/12/20 at 14:00 Albumin Human 250 ml @ 62.5 mls/hr Q6HRS IV Last administered on 10/13/20at 12:37; Start 10/12/20 at 14:00; Stop 10/13/20 at 12:39; Status DC Dextrose/Sodium Chloride 1,000 ml @ 75 mls/hr [id number] IV Last administered on 10/13/20at 03:07; Start 10/12/20 at 17:45; Stop 10/13/20 at 07:57; Status DC Norepinephrine Bitartrate 8 mg/ Dextrose 258 ml @ 16.157 mls/ hr CONT PRN IV PER PROTOCOL Last administered on 10/13/20at 12:36; Start 10/12/20 at 20:00 Potassium Chloride 40 meq/ Sodium Chloride 1,020 ml @ 100 mls/hr [id number] IV Last administered on 10/13/20at 10:09; Start 10/13/20 at 09:00 Magnesium Sulfate 50 ml @ 25 mls/hr PRN DAILY PRN IV for Mag < 1.7 on am labs; Start 10/13/20 at 08:00 Sodium Chloride 500 ml @ 0 mls/hr QID PRN IV MAP < 65 ; Start 10/13/20 at 08:00 Potassium Phosphate 15 mmol/ Sodium Chloride 255 ml @ 127.5 mls/ hr Q2H IV Last administered on 10/13/20at 12:22; Start 10/13/20 at 09:00; Stop 10/13/20 at 12:59 Active Scripts Active Reported Vitamin D3-Aloe 1,000 Unit Tab (Ca Cmb 1/Vit D3/B-6/Fa/B12/Av) 1 Each Tablet 1 Each PO DAILY Vitamin C (Ascorbic Acid) 500 Mg Capsule.er 500 Mg PO DAILY Spironolactone 25 Mg Tablet 25 Mg PO DAILY Selsun Blue (Salicylic Acid) 325 Ml Shampoo 7 Oz TP TU,FRI Lisinopril 10 Mg Tablet 10 Mg PO DAILY Linzess (Linaclotide) 290 Mcg Capsule 72 Mcg PO DAILY07 Docusate Sodium 100 Mg Capsule 1 Cap PO DAILY 30 Days Dilantin (Phenytoin Sodium Extended) 100 Mg Capsule 200 Mg PO BID Dilantin (Phenytoin Sodium Extended) 100 Mg Capsule 1 Cap PO DAILY16 Atenolol 50 Mg Tablet 50 Mg PO DAILY Children's Aspirin (Aspirin) 81 Mg Tab.chew 81 Mg PO DAILY PRN Acetaminophen 500 Mg Tablet 500 Mg PO Q4HRS PRN Vitals/I & O Vital Sign - Last 24 Hours 10/12/20 10/12/20 10/12/20 10/12/20 13:00 14:00 15:00 16:00 Temp 97.7 97.7 Pulse 82 88 82 83 Resp 12 12 12 12 B/P (MAP) 94/67 (76) 73/54 (60) 81/58 (66) 83/59 (67) Pulse Ox 99 99 99 99 O2 Delivery Room Air Room Air Room Air Room Air 10/12/20 10/12/20 10/12/20 10/12/20 17:00 18:00 19:00 19:30 Temp 97.5 97.5 Pulse 82 86 86 84 Resp 10 9 9 9 B/P (MAP) 85/53 (64) 69/51 (57) 70/39 (49) 78/49 (59) Pulse Ox 99 99 99 100 O2 Delivery Room Air Room Air Room Air Room Air 10/12/20 10/12/20 10/12/20 10/12/20 20:00 20:00 20:30 21:00 Temp 98.2 98.2 Pulse 84 78 74 Resp 10 12 10 B/P (MAP) 72/55 (61) 86/60 (69) 86/60 (69) Pulse Ox 100 98 99 O2 Delivery Room Air Room Air Room Air Room Air 10/12/20 10/12/20 10/12/20 10/12/20 21:30 22:00 22:30 23:00 Pulse 76 78 72 71 Resp 8 9 9 8 B/P (MAP) 95/71 (79) 94/49 (64) 95/62 (73) 89/55 (66) Pulse Ox 99 97 99 98 O2 Delivery Room Air Room Air Room Air Room Air 10/12/20 10/13/20 10/13/20 10/13/20 23:59 00:00 00:30 01:00 Temp 98.0 98.0 Pulse 69 70 68 Resp 10 12 7 B/P (MAP) 104/71 (82) 104/68 (80) 92/60 (71) Pulse Ox 99 99 100 O2 Delivery Room Air Room Air Room Air Room Air 10/13/20 10/13/20 10/13/20 10/13/20 01:30 02:00 02:30 03:00 Pulse 68 70 72 68 Resp 10 10 12 10 B/P (MAP) 109/77 (88) 101/71 (81) 111/70 (84) 111/70 (84) Pulse Ox 99 98 99 99 O2 Delivery Room Air Room Air Room Air Room Air 10/13/20 10/13/20 10/13/20 10/13/20 03:30 04:00 04:00 04:30 Temp 98.0 98.0 Pulse 74 74 72 Resp 9 9 9 B/P (MAP) 74/51 (59) 86/58 (67) 93/63 (73) Pulse Ox 97 97 98 O2 Delivery Room Air Room Air Room Air Room Air 10/13/20 10/13/20 10/13/20 10/13/20 05:00 05:30 06:00 07:00 Pulse 78 78 74 62 Resp 16 13 12 13 B/P (MAP) 88/63 (71) 96/65 (75) 86/64 (71) 116/76 (89) Pulse Ox 96 97 98 99 O2 Delivery Room Air Room Air Room Air Room Air 10/13/20 10/13/20 10/13/20 10/13/20 08:00 08:00 09:00 10:00 Temp 98.3 98.3 Pulse 56 80 81 Resp 10 19 18 B/P (MAP) 118/81 (93) 123/79 (94) 126/83 (97) Pulse Ox 100 98 98 O2 Delivery Room Air Room Air Room Air Room Air 10/13/20 10/13/20 10/13/20 10/13/20 11:00 12:00 12:00 12:15 Temp 98.2 98.2 Pulse 81 74 Resp 11 16 B/P (MAP) 120/82 (95) 119/76 (90) 123/86 (98) Pulse Ox 98 99 O2 Delivery Room Air Room Air Room Air 10/13/20 12:30 B/P (MAP) 108/74 (85) Intake and Output 10/12/20 10/12/20 10/13/20 15:00 23:00 07:00 Intake Total 0 ml 1850 ml 917 ml Output Total 590 ml 530 ml Balance 0 ml 1260 ml 387 ml Justicifation of Admission Dx: Justifications for Admission: Justification of Admission Dx: N/A DANNA LOPEZ MD Oct 13, 2020 12:53
--- NOTE | 2020-10-13 16:34 | RAD ---
Exam: CT head INDICATION: Follow-up aneta hyperintensity TECHNIQUE: Sequential axial images through the head were obtained without the administration of IV co ntrast. Comparisons: 10/11/2020 FINDINGS: There is a persistent punctate hyperintense focus within the aneta on the right series 2 image 12 whic h appears unchanged when compared to the prior exam. No focal parenchymal lesion or hemorrhage is chelo ntified. There is no midline shift or sulcal effacement. Patchy hypodensity in the periventricular white matter, unchanged from prior. No acute vascular anil tory infarction is identified. Cabrera-white distinction is preserved. The ventricular system is within normal limits without compression hydrocephalus. The basal cisterns are well maintained. The visualized portions of the paranasal sinuses and mastoid air cells are well-pneumatized. No acute fractures. IMPRESSION: Persistent punctate hyperintense focus in the aneta, unchanged from prior study. This is favored to re present a small calcification rather than a small intraparenchymal hemorrhage. Correlate with symptom atology and if there are persistent concerns for intraparenchymal hemorrhage a MRI would better evalu ate. Exposure: One or more of the following in the visualized dose reduction techniques were utilized for this examination: 1. Automated exposure control 2. Adjustment of the MA and/or KV according to patient size Use of iterative of reconstructive technique Electronically signed by: Omar Nelson MD (10/13/2020 4:31 PM) [facility]
[2020-10-13] MEDS: LACTOBACILLUS RHAMNOSUS GG 1 CAPSULE. PO SCH (21:00)
[2020-10-14] VITALS (19 sets, daily range): BP systolic 91–119; BP diastolic 40–80
[2020-10-14] MEDS: POTASSIUM CHLORIDE 40 MEQ in IV 1/2 NORMAL SALINE 1,000 ML IV SCH ×3 (02:58→13:18)
[2020-10-14] MEDS: FOSPHENYTOIN 100 MG/2 ML VIAL. IV SCH ×3 (05:36→21:31)
[2020-10-14] MEDS: PIPERACILLIN/TAZOBACTAM 2.25 GM in IV NORMAL SALINE 50ML 50 ML IV SCH ×4 (05:37→23:50)
[2020-10-14] MEDS: HEPARIN for SUB-Q USE 5,000 UNIT/ML VIAL. SQ SCH ×3 (05:39→21:36)
[2020-10-14 06:09] LABS: BASO % 0 % (0-3); EOS # 0.6 x10^3/uL (0.0-0.7); EOS % 9 % (0-3); HEMATOCRIT 32.3 % (36.0-47.0); HEMOGLOBIN 10.5 g/dL (12.0-15.5); LYMPH # 2.1 x10^3/uL (1.0-4.8); LYMPH % 34 % (24-48); MEAN CORPUSCULAR HEMOGLOBIN 30 pg (25-35); MEAN CORPUSCULAR HGB CONC 32 g/dL (31-37); MEAN CORPUSCULAR VOLUME 93 fL (79-100); MONO # 0.5 x10^3/uL (0.0-1.1); MONO % 9 % (0-9); NEUT % 48 % (31-73); PLATELET COUNT 125 x10^3/uL (140-400); RED CELL DISTRIBUTION WIDTH 13.9 % (11.5-14.5); WHITE BLOOD COUNT 6.1 x10^3/uL (4.0-11.0)
[2020-10-14 06:35] LABS: ALBUMIN 3.3 g/dL (3.4-5.0); ALBUMIN/GLOBULIN RATIO 1.1 (1.0-1.7); CALCIUM 8.3 mg/dL (8.5-10.1); CREATININE 1.1 mg/dL (0.6-1.0); GFR 50.3; POTASSIUM 4.1 mmol/L (3.5-5.1); TOTAL BILIRUBIN 0.5 mg/dL (0.2-1.0); TOTAL PROTEIN 6.4 g/dL (6.4-8.2)
[2020-10-14] MEDS: LACTOBACILLUS RHAMNOSUS GG 1 CAPSULE. PO SCH ×2 (08:50→21:00)
[2020-10-14] MEDS: FAMOTIDINE 20 MG/2 ML VIAL IVP SCH (09:27)
--- NOTE | 2020-10-14 10:18 | PDOC ---
PROGRESS NOTES Date of Service: DATE: 10/14/20 TIME: 10:17 Chief Complaint Chief Complaint VTE Prophylaxis Ordered VTE Prophylaxis Devices: Yes VTE Pharmacological Prophylaxi: Yes Assessment/Plan Assessment/Plan impression 1. Severe electrolyte imbalance with hypernatremia, , hyperchloremia volume depleted 2. Altered mental status ,Small focus of hyperdensity noted on described above nonspecific may represent calcification versus punctate hemorrhage Hypodensity in the aneta undoubtedly represents calcification 3. morbid obesity 4. remote cva 5. hx dysphagia 6. HYPOTENSION, volume depleted 7. HYPOKALEMIA 8. MILVIA // Increased bilateral renal cortical echogenicity, may indicate medical renal disease. Hypodensity in the aneta undoubtedly represents calcification plan 1. admit ICU 2. Consult nephrology 3. consult neurology 4. HYPOTONIC IV FLUID SUPPORT , CONTINUE 5. DVT prophylaxis 6. PT/OT/ST 7. GI CONSULT 8. REPLETE LYTES 10/14 does not want to eat or drink, May want palliative care, will address 38 min cc time Justifications for Admission Other Justification History of Present Illness History of Present Illness Identification/Chief Complaint Chief Complaint altered mental status, HYPOTENSION, DEHYDRATION History of Present Illness History of Present Illness [facility] patient seen in ER has been declined to eat or take her medications for approximately 1 week. poor historian and unable to provide any significant history. No symptoms at presentation per ER note . Staff the [facility]pc believes she has some change from her baseline 60 year old with altered mental status and treated behavior. symptoms at this time. Staff the [facility]pc do believe she has some change from her baseline but the timeline is not specific. No acute changes today and no deviation from today. No reported fever, chills, chest pain or shortness of breath. sodium noted to be 161 in ER Past Medical History Past Medical History CENTRAL NERVOUS SYSTEM: Seizure (? Nonepileptic) GI: Other (Dysphagia) Infectious disease: Other (COVID-19 in February 2020) Past Surgical History Past Surgical History: No pertinent history Family History Family History: No pertinent hx Social History Social History [facility] resident Cardiovascular: HTN, Hyperlipidemia CENTRAL NERVOUS SYSTEM: Dementia Heme/Onc: No pertinent hx Musculoskeletal: Osteoarthritis Dermatology: No pertinent hx Family History Family History: Hypertension Social History Smoke: No ALCOHOL: none Drugs: None Vitals Vitals Vital Signs Date Time Temp Pulse Resp B/P (MAP) Pulse Ox O2 Delivery O2 Flow Rate FiO2 10/14/20 10:00 81 10 91/68 (76) 98 Room Air 10/14/20 07:00 97.6 97.6 Physical Exam General: Cooperative, No acute distress Heart: Regular rate, Normal S1 Lungs: Clear Abdomen: Normal bowel sounds Extremities: No cyanosis, No edema Skin: No breakdown Labs LABS Exam: CT head INDICATION: Follow-up aneta hyperintensity TECHNIQUE: Sequential axial images through the head were obtained without the administration of IV contrast. Comparisons: 10/11/2020 FINDINGS: There is a persistent punctate hyperintense focus within the aneta on the right series 2 image 12 which appears unchanged when compared to the prior exam. No focal parenchymal lesion or hemorrhage is identified. There is no midline shift or sulcal effacement. Patchy hypodensity in the periventricular white matter, unchanged from prior. No acute vascular territory infarction is identified. Cabrera-white distinction is preserved. The ventricular system is within normal limits without compression hydrocephalus. The basal cisterns are well maintained. The visualized portions of the paranasal sinuses and mastoid air cells are well- pneumatized. No acute fractures. IMPRESSION: Persistent punctate hyperintense focus in the aneta, unchanged from prior study. This is favored to represent a small calcification rather than a small intraparenchymal hemorrhage. Correlate with symptomatology and if there are persistent concerns for intraparenchymal hemorrhage a MRI would better evaluate. Exposure: One or more of the following in the visualized dose reduction techniques were utilized for this examination: 1. Automated exposure control 2. Adjustment of the MA and/or KV according to patient size Use of iterative of reconstructive technique Electronically signed by: Omar Daniels MD (10/13/2020 4:31 PM) [facility] DICTATED and SIGNED BY: OMAR DANIELS MD DATE: 10/13/20 [id number] Laboratory Tests Test 10/13/20 12:12 10/13/20 18:30 10/14/20 05:01 Potassium Level 3.4 mmol/L (3.5-5.1) 3.8 mmol/L (3.5-5.1) 4.1 mmol/L (3.5-5.1) White Blood Count 6.1 x10^3/uL (4.0-11.0) Red Blood Count 3.50 x10^6/uL (3.50-5.40) Hemoglobin 10.5 g/dL (12.0-15.5) Hematocrit 32.3 % (36.0-47.0) Mean Corpuscular Volume 93 fL (79-100) Mean Corpuscular Hemoglobin 30 pg (25-35) Mean Corpuscular Hemoglobin Concent 32 g/dL (31-37) Red Cell Distribution Width 13.9 % (11.5-14.5) Platelet Count 125 x10^3/uL (140-400) Neutrophils (%) (Auto) 48 % (31-73) Lymphocytes (%) (Auto) 34 % (24-48) Monocytes (%) (Auto) 9 % (0-9) Eosinophils (%) (Auto) 9 % (0-3) Basophils (%) (Auto) 0 % (0-3) Neutrophils # (Auto) 3.0 x10^3/uL (1.8-7.7) Lymphocytes # (Auto) 2.1 x10^3/uL (1.0-4.8) Monocytes # (Auto) 0.5 x10^3/uL (0.0-1.1) Eosinophils # (Auto) 0.6 x10^3/uL (0.0-0.7) Basophils # (Auto) 0.0 x10^3/uL (0.0-0.2) Sodium Level 155 mmol/L (136-145) Chloride Level 120 mmol/L (98-107) Carbon Dioxide Level 27 mmol/L (21-32) Anion Gap 8 (6-14) Blood Urea Nitrogen 23 mg/dL (7-20) Creatinine 1.1 mg/dL (0.6-1.0) Estimated GFR (Cockcroft-Gault) 50.3 BUN/Creatinine Ratio 21 (6-20) Glucose Level 112 mg/dL (70-99) Calcium Level 8.3 mg/dL (8.5-10.1) Magnesium Level 2.0 mg/dL (1.8-2.4) Total Bilirubin 0.5 mg/dL (0.2-1.0) Aspartate Amino Transf (AST/SGOT) 21 U/L (15-37) Alanine Aminotransferase (ALT/SGPT) 21 U/L (14-59) Alkaline Phosphatase 99 U/L (46-116) Creatine Kinase 145 U/L (26-192) Total Protein 6.4 g/dL (6.4-8.2) Albumin 3.3 g/dL (3.4-5.0) Albumin/Globulin Ratio 1.1 (1.0-1.7) Assessment and Plan Assessmemt and Plan Problems Medical Problems: (1) Acute renal failure Status: Acute (2) Hypernatremia Status: Acute Comment Review of Relevant I have reviewed the following items crissy (where applicable) has been applied. Labs Laboratory Tests Test 10/12/20 16:00 10/13/20 05:00 10/13/20 12:12 10/13/20 18:30 White Blood Count 8.1 x10^3/uL (4.0-11.0) 8.8 x10^3/uL (4.0-11.0) Red Blood Count 3.86 x10^6/uL (3.50-5.40) 3.55 x10^6/uL (3.50-5.40) Hemoglobin 11.7 g/dL (12.0-15.5) 10.7 g/dL (12.0-15.5) Hematocrit 36.1 % (36.0-47.0) 32.8 % (36.0-47.0) Mean Corpuscular Volume 94 fL (79-100) 92 fL (79-100) Mean Corpuscular Hemoglobin 30 pg (25-35) 30 pg (25-35) Mean Corpuscular Hemoglobin Concent 33 g/dL (31-37) 33 g/dL (31-37) Red Cell Distribution Width 14.4 % (11.5-14.5) 14.0 % (11.5-14.5) Platelet Count 144 x10^3/uL (140-400) 152 x10^3/uL (140-400) Neutrophils (%) (Auto) 64 % (31-73) 57 % (31-73) Lymphocytes (%) (Auto) 24 % (24-48) 26 % (24-48) Monocytes (%) (Auto) 10 % (0-9) 9 % (0-9) Eosinophils (%) (Auto) 2 % (0-3) 7 % (0-3) Basophils (%) (Auto) 0 % (0-3) 0 % (0-3) Neutrophils # (Auto) 5.2 x10^3/uL (1.8-7.7) 5.0 x10^3/uL (1.8-7.7) Lymphocytes # (Auto) 1.9 x10^3/uL (1.0-4.8) 2.3 x10^3/uL (1.0-4.8) Monocytes # (Auto) 0.8 x10^3/uL (0.0-1.1) 0.8 x10^3/uL (0.0-1.1) Eosinophils # (Auto) 0.1 x10^3/uL (0.0-0.7) 0.6 x10^3/uL (0.0-0.7) Basophils # (Auto) 0.0 x10^3/uL (0.0-0.2) 0.0 x10^3/uL (0.0-0.2) Sodium Level 161 mmol/L (136-145) 155 mmol/L (136-145) Potassium Level 3.5 mmol/L (3.5-5.1) 2.9 mmol/L (3.5-5.1) 3.4 mmol/L (3.5-5.1) 3.8 mmol/L (3.5-5.1) Chloride Level 121 mmol/L (98-107) 118 mmol/L (98-107) Carbon Dioxide Level 26 mmol/L (21-32) 24 mmol/L (21-32) Anion Gap 14 (6-14) 13 (6-14) Blood Urea Nitrogen 70 mg/dL (7-20) 46 mg/dL (7-20) Creatinine 2.0 mg/dL (0.6-1.0) 1.7 mg/dL (0.6-1.0) Estimated GFR (Cockcroft-Gault) 25.2 30.5 Glucose Level 306 mg/dL (70-99) 250 mg/dL (70-99) Calcium Level 7.9 mg/dL (8.5-10.1) 7.8 mg/dL (8.5-10.1) Thyroid Stimulating Hormone (TSH) 0.433 uIU/mL (0.358-3.74) Phenytoin (Dilantin) Level 30.7 mcg/mL (10.0-20.0) Phenytoin Last Dose Date 09/12/20 Phenytoin Last Dose Time 1430 BUN/Creatinine Ratio 27 (6-20) Phosphorus Level 2.2 mg/dL (2.6-4.7) Total Bilirubin 0.4 mg/dL (0.2-1.0) Aspartate Amino Transf (AST/SGOT) 21 U/L (15-37) Alanine Aminotransferase (ALT/SGPT) 20 U/L (14-59) Alkaline Phosphatase 99 U/L (46-116) Total Protein 6.6 g/dL (6.4-8.2) Albumin 3.3 g/dL (3.4-5.0) Albumin/Globulin Ratio 1.0 (1.0-1.7) Test 10/14/20 05:01 White Blood Count 6.1 x10^3/uL (4.0-11.0) Red Blood Count 3.50 x10^6/uL (3.50-5.40) Hemoglobin 10.5 g/dL (12.0-15.5) Hematocrit 32.3 % (36.0-47.0) Mean Corpuscular Volume 93 fL (79-100) Mean Corpuscular Hemoglobin 30 pg (25-35) Mean Corpuscular Hemoglobin Concent 32 g/dL (31-37) Red Cell Distribution Width 13.9 % (11.5-14.5) Platelet Count 125 x10^3/uL (140-400) Neutrophils (%) (Auto) 48 % (31-73) Lymphocytes (%) (Auto) 34 % (24-48) Monocytes (%) (Auto) 9 % (0-9) Eosinophils (%) (Auto) 9 % (0-3) Basophils (%) (Auto) 0 % (0-3) Neutrophils # (Auto) 3.0 x10^3/uL (1.8-7.7) Lymphocytes # (Auto) 2.1 x10^3/uL (1.0-4.8) Monocytes # (Auto) 0.5 x10^3/uL (0.0-1.1) Eosinophils # (Auto) 0.6 x10^3/uL (0.0-0.7) Basophils # (Auto) 0.0 x10^3/uL (0.0-0.2) Sodium Level 155 mmol/L (136-145) Potassium Level 4.1 mmol/L (3.5-5.1) Chloride Level 120 mmol/L (98-107) Carbon Dioxide Level 27 mmol/L (21-32) Anion Gap 8 (6-14) Blood Urea Nitrogen 23 mg/dL (7-20) Creatinine 1.1 mg/dL (0.6-1.0) Estimated GFR (Cockcroft-Gault) 50.3 BUN/Creatinine Ratio 21 (6-20) Glucose Level 112 mg/dL (70-99) Calcium Level 8.3 mg/dL (8.5-10.1) Magnesium Level 2.0 mg/dL (1.8-2.4) Total Bilirubin 0.5 mg/dL (0.2-1.0) Aspartate Amino Transf (AST/SGOT) 21 U/L (15-37) Alanine Aminotransferase (ALT/SGPT) 21 U/L (14-59) Alkaline Phosphatase 99 U/L (46-116) Creatine Kinase 145 U/L (26-192) Total Protein 6.4 g/dL (6.4-8.2) Albumin 3.3 g/dL (3.4-5.0) Albumin/Globulin Ratio 1.1 (1.0-1.7) Laboratory Tests Test 10/13/20 12:12 10/13/20 18:30 10/14/20 05:01 Potassium Level 3.4 mmol/L (3.5-5.1) 3.8 mmol/L (3.5-5.1) 4.1 mmol/L (3.5-5.1) White Blood Count 6.1 x10^3/uL (4.0-11.0) Red Blood Count 3.50 x10^6/uL (3.50-5.40) Hemoglobin 10.5 g/dL (12.0-15.5) Hematocrit 32.3 % (36.0-47.0) Mean Corpuscular Volume 93 fL (79-100) Mean Corpuscular Hemoglobin 30 pg (25-35) Mean Corpuscular Hemoglobin Concent 32 g/dL (31-37) Red Cell Distribution Width 13.9 % (11.5-14.5) Platelet Count 125 x10^3/uL (140-400) Neutrophils (%) (Auto) 48 % (31-73) Lymphocytes (%) (Auto) 34 % (24-48) Monocytes (%) (Auto) 9 % (0-9) Eosinophils (%) (Auto) 9 % (0-3) Basophils (%) (Auto) 0 % (0-3) Neutrophils # (Auto) 3.0 x10^3/uL (1.8-7.7) Lymphocytes # (Auto) 2.1 x10^3/uL (1.0-4.8) Monocytes # (Auto) 0.5 x10^3/uL (0.0-1.1) Eosinophils # (Auto) 0.6 x10^3/uL (0.0-0.7) Basophils # (Auto) 0.0 x10^3/uL (0.0-0.2) Sodium Level 155 mmol/L (136-145) Chloride Level 120 mmol/L (98-107) Carbon Dioxide Level 27 mmol/L (21-32) Anion Gap 8 (6-14) Blood Urea Nitrogen 23 mg/dL (7-20) Creatinine 1.1 mg/dL (0.6-1.0) Estimated GFR (Cockcroft-Gault) 50.3 BUN/Creatinine Ratio 21 (6-20) Glucose Level 112 mg/dL (70-99) Calcium Level 8.3 mg/dL (8.5-10.1) Magnesium Level 2.0 mg/dL (1.8-2.4) Total Bilirubin 0.5 mg/dL (0.2-1.0) Aspartate Amino Transf (AST/SGOT) 21 U/L (15-37) Alanine Aminotransferase (ALT/SGPT) 21 U/L (14-59) Alkaline Phosphatase 99 U/L (46-116) Creatine Kinase 145 U/L (26-192) Total Protein 6.4 g/dL (6.4-8.2) Albumin 3.3 g/dL (3.4-5.0) Albumin/Globulin Ratio 1.1 (1.0-1.7) Microbiology 10/12/20 Blood Culture - Preliminary, Resulted NO GROWTH AFTER 1 DAY 10/11/20 Urine Culture - Final, Complete Medications Current Medications Sodium Chloride 1,000 ml @ 1,000 mls/hr 1X ONCE IV Last administered on 10/11/20at 19:45; Start 10/11/20 at 19:45; Stop 10/11/20 at 20:46; Status DC Sodium Chloride 1,000 ml @ 100 mls/hr 1X ONCE IV Last administered on 10/11/20at 02:33; Start 10/11/20 at 21:00; Stop 10/12/20 at 17:35; Status DC Ondansetron HCl (Zofran) 4 mg PRN Q8HRS PRN IV NAUSEA/VOMITING 1ST CHOICE; Start 10/11/20 at 21:00; Stop 10/12/20 at 20:59; Status DC Morphine Sulfate (Morphine Sulfate) 2 mg PRN Q2HR PRN IV SEVERE PAIN 7-10; Start 10/11/20 at 21:00; Stop 10/12/20 at 20:59; Status DC Phenytoin Sodium (Dilantin) 100 mg 1X ONCE PO ; Start 10/11/20 at 21:00; Stop 10/11/20 at 21:01; Status DC Fosphenytoin Sodium (Cerebyx) 167 mg Q8HRS IV Last administered on 10/14/20at 05:36; Start 10/12/20 at 06:00 Dextrose/Sodium Chloride 1,000 ml @ 75 mls/hr [id number] IV Last administered on 10/12/20at 08:21; Start 10/12/20 at 08:00; Stop 10/12/20 at 17:35; Status DC Ceftriaxone Sodium (Rocephin) 1 gm Q24H IVP Last administered on 10/12/20at 08:21; Start 10/12/20 at 09:00; Stop 10/12/20 at 11:48; Status DC Sodium Chloride (Normal Saline Flush) 3 ml QSHIFT PRN IV AFTER MEDS AND BLOOD DRAWS; Start 10/12/20 at 11:45 Acetaminophen (Tylenol Supp) 650 mg PRN Q4HRS PRN SC TEMP OVER 100.4F OR MILD PAIN; Start 10/12/20 at 11:45 Docusate Sodium (Colace) 100 mg PRN BID PRN PO HARD STOOLS; Start 10/12/20 at 11:45 Albuterol Sulfate (Ventolin Neb Soln) 2.5 mg PRN Q4HRS PRN NEB SHORTNESS OF BREATH; Start 10/12/20 at 11:45 Guaifenesin (Robitussin) 200 mg PRN Q4HRS PRN PO COUGH; Start 10/12/20 at 11:45 Piperacillin Sod/ Tazobactam Sod 2.25 gm/Sodium Chloride 50 ml @ 100 mls/hr Q6HRS IV Last administered on 10/14/20at 05:37; Start 10/12/20 at 12:00 Heparin Sodium (Porcine) (Heparin Sodium) 5,000 unit Q8HRS SQ Last administered on 10/14/20at 05:39; Start 10/12/20 at 14:00 Famotidine (Pepcid Vial) 20 mg DAILY IVP Last administered on 10/14/20at 09:27; Start 10/12/20 at 14:00 Albumin Human 250 ml @ 62.5 mls/hr Q6HRS IV Last administered on 10/13/20at 12:37; Start 10/12/20 at 14:00; Stop 10/13/20 at 12:39; Status DC Dextrose/Sodium Chloride 1,000 ml @ 75 mls/hr [id number] IV Last administered on 10/13/20at 03:07; Start 10/12/20 at 17:45; Stop 10/13/20 at 07:57; Status DC Norepinephrine Bitartrate 8 mg/ Dextrose 258 ml @ 16.157 mls/ hr CONT PRN IV PER PROTOCOL Last administered on 10/13/20at 12:36; Start 10/12/20 at 20:00 Potassium Chloride 40 meq/ Sodium Chloride 1,020 ml @ 100 mls/hr [id number] IV Last administered on 10/14/20at 02:58; Start 10/13/20 at 09:00 Magnesium Sulfate 50 ml @ 25 mls/hr PRN DAILY PRN IV for Mag < 1.7 on am labs; Start 10/13/20 at 08:00 Sodium Chloride 500 ml @ 0 mls/hr QID PRN IV MAP < 65 ; Start 10/13/20 at 08:00 Potassium Phosphate 15 mmol/ Sodium Chloride 255 ml @ 127.5 mls/ hr Q2H IV Last administered on 10/13/20at 12:22; Start 10/13/20 at 09:00; Stop 10/13/20 at 12:59; Status DC Lactobacillus Rhamnosus (Culturelle) 1 cap BID PO ; Start 10/13/20 at 21:00 Active Scripts Active Reported Vitamin D3-Aloe 1,000 Unit Tab (Ca Cmb 1/Vit D3/B-6/Fa/B12/Av) 1 Each Tablet 1 Each PO DAILY Vitamin C (Ascorbic Acid) 500 Mg Capsule.er 500 Mg PO DAILY Spironolactone 25 Mg Tablet 25 Mg PO DAILY Selsun Blue (Salicylic Acid) 325 Ml Shampoo 7 Oz TP TU,FRI Lisinopril 10 Mg Tablet 10 Mg PO DAILY Linzess (Linaclotide) 290 Mcg Capsule 72 Mcg PO DAILY07 Docusate Sodium 100 Mg Capsule 1 Cap PO DAILY 30 Days Dilantin (Phenytoin Sodium Extended) 100 Mg Capsule 200 Mg PO BID Dilantin (Phenytoin Sodium Extended) 100 Mg Capsule 1 Cap PO DAILY16 Atenolol 50 Mg Tablet 50 Mg PO DAILY Children's Aspirin (Aspirin) 81 Mg Tab.chew 81 Mg PO DAILY PRN Acetaminophen 500 Mg Tablet 500 Mg PO Q4HRS PRN Vitals/I & O Vital Sign - Last 24 Hours 10/13/20 10/13/20 10/13/20 10/13/20 11:00 12:00 12:00 12:15 Temp 98.2 98.2 Pulse 81 74 Resp 11 16 B/P (MAP) 120/82 (95) 119/76 (90) 123/86 (98) Pulse Ox 98 99 O2 Delivery Room Air Room Air Room Air 10/13/20 10/13/20 10/13/20 10/13/20 12:30 13:00 14:00 15:00 Pulse 77 74 78 Resp 23 15 9 B/P (MAP) 108/74 (85) 107/73 (84) 105/75 (85) 101/73 (82) Pulse Ox 99 100 99 O2 Delivery Room Air Room Air Room Air 10/13/20 10/13/20 10/13/20 10/13/20 15:30 16:00 16:00 17:00 Temp 98.3 98.3 Pulse 86 78 Resp 8 15 B/P (MAP) 92/59 (70) 113/85 (94) 90/60 (70) Pulse Ox 100 100 O2 Delivery Room Air Room Air Room Air 10/13/20 10/13/20 10/13/20 10/13/20 18:00 19:30 19:33 20:02 Temp 98.4 98.4 98.4 98.4 Pulse 82 75 77 Resp 11 16 B/P (MAP) 90/55 (67) 98/66 (77) 93/64 (74) Pulse Ox 100 100 100 O2 Delivery Room Air Room Air Room Air Room Air 10/13/20 10/13/20 10/13/20 10/13/20 21:14 21:39 23:23 23:48 Temp 98.2 98.6 98.6 98.2 98.6 98.6 Pulse 82 77 76 Resp 16 B/P (MAP) 93/64 (74) 98/66 (77) 100/69 (79) Pulse Ox 99 98 100 O2 Delivery Room Air Room Air Room Air Room Air 10/13/20 10/14/20 10/14/20 10/14/20 23:51 00:53 01:50 02:54 Temp 98.6 98.6 98.3 98.6 98.6 98.3 Pulse 83 79 79 78 Resp 20 12 14 B/P (MAP) 120/84 (96) 119/78 (92) 108/77 (87) 110/79 (89) Pulse Ox 96 99 100 100 O2 Delivery Room Air Room Air Room Air Room Air 10/14/20 10/14/20 10/14/20 10/14/20 03:54 03:57 05:01 05:51 Temp 98.3 97.7 97.7 98.3 97.7 97.7 Pulse 78 78 81 Resp 12 12 B/P (MAP) 114/78 (90) 119/80 (93) 101/68 (79) Pulse Ox 100 100 100 O2 Delivery Room Air Room Air Room Air Room Air 10/14/20 10/14/20 10/14/20 10/14/20 07:00 07:30 08:00 09:00 Temp 97.6 97.6 Pulse 76 80 78 Resp 14 12 B/P (MAP) 107/69 (82) 98/66 (77) 92/67 (75) Pulse Ox 100 100 100 O2 Delivery Room Air Room Air Room Air Room Air 10/14/20 10:00 Pulse 81 Resp 10 B/P (MAP) 91/68 (76) Pulse Ox 98 O2 Delivery Room Air Intake and Output 10/13/20 10/13/20 10/14/20 15:00 23:00 07:00 Intake Total 50 ml 1080 ml 0 ml Output Total 370 ml 590 ml 620 ml Balance -320 ml 490 ml -620 ml Nutrition Consultation Dietary Evaluation: Recommendations by RD: Dietary education by RD, Increase Calorie Intake, Protein supplementation Comments: REC advance diet as able within 24 - 72 hrs, per RN pt will need INDUSTRIAL TECHNOLOGY TEACHER eval due to pt's altered mental status REC goal diet regular or renal pending labs, textures per INDUSTRIAL TECHNOLOGY TEACHER REC oral supplements (nepro or Ensure) q day or more often per pt preference Expected Outcomes/Goals: diet advancement Malnutrition Findings: Food and Nutrition Intake (Mod: <75% est energy req 7days Body Fat Depletion (Non Severe: Mild Depletion Weight Status: Appropriate Justicifation of Admission Dx: Justifications for Admission: Justification of Admission Dx: N/A GINO MOYER MD Oct 14, 2020 10:18
--- NOTE | 2020-10-14 13:46 | PDOC ---
DATE OF SERVICE: DOS: DATE: 10/14/20 TIME: 13:42 SUBJECTIVE ROS Follow-up for MILVIA and hypernatremia Review of systems negative, patient claims she is not hungry and does not want to eat or drink. Urine output is adequate. OBJECTIVE Vital Signs Vital Signs Date Time Temp Pulse Resp B/P (MAP) Pulse Ox O2 Delivery O2 Flow Rate FiO2 10/14/20 11:00 82 12 103/64 (77) 98 Room Air 10/14/20 07:00 97.6 97.6 I & 0 Intake and Output 10/14/20 07:00 Intake Total 1130 ml Output Total 1580 ml Balance -450 ml Intake Oral 0 ml IV Total 1130 ml Output Urine Total 1580 ml PHYSICAL EXAM Physical Exam GEN: Awake, Oriented x 1 at best , In no distress EYES: Vision Unchanged, Conjunctiva Normal EN: No EN Drainage, Mucous Membranes dryish NECK: no JVD, no JVP, Supple, no Thyromegaly CVS: S1S2, ? Murmur, No Gallop, No Rub,no Edema RESP: no Rales, no Rhonchi,no Acc. Muscle Use GI: BS + ve, NO Bruit, Non Tender, Non Distended : no CVA tenderness, no Suprapubic Tenderness DIAGNOSIS/ASSESSMENT Assessment & Plan MILVIA suspect Pre renal/Dehydration: Creat better this am. UO improved significantly.. CK is normal.. UA relatively benign SEv Dehydration - improving with hypotonic IVF as ordered Low K : Now resolved and replaced HyperNatremia -change IV fluids to PPN given poor p.o. intake Hypotension -blood pressures improving currently. Unclear if patient has received IV fluid boluses for the same Oliguria -urine output much better at this time COMMENT/RELEVANT DATA Meds Current Medications Medications (Trade) Dose Ordered Sig/Khoi Start Time Stop Time Status Last Admin Dose Admin Acetaminophen (Tylenol Supp) 650 mg PRN Q4HRS PRN 10/12/20 11:45 Albumin Human 250 ml @ 62.5 mls/hr Q6HRS 10/12/20 14:00 10/13/20 12:39 DC 10/13/20 12:37 62.5 MLS/HR Albuterol Sulfate (Ventolin Neb Soln) 2.5 mg PRN Q4HRS PRN 10/12/20 11:45 Ceftriaxone Sodium (Rocephin) 1 gm Q24H 10/12/20 09:00 10/12/20 11:48 DC 10/12/20 08:21 1 GM Dextrose/Sodium Chloride 1,000 ml @ 75 mls/hr [id number] 10/12/20 17:45 10/13/20 07:57 DC 10/13/20 03:07 75 MLS/HR Docusate Sodium (Colace) 100 mg PRN BID PRN 10/12/20 11:45 Famotidine (Pepcid Vial) 20 mg DAILY 10/12/20 14:00 10/14/20 09:27 20 MG Fosphenytoin Sodium (Cerebyx) 167 mg Q8HRS 10/12/20 06:00 10/14/20 05:36 167 MG Guaifenesin (Robitussin) 200 mg PRN Q4HRS PRN 10/12/20 11:45 Heparin Sodium (Porcine) (Heparin Sodium) 5,000 unit Q8HRS 10/12/20 14:00 10/14/20 05:39 5,000 UNIT Lactobacillus Rhamnosus (Culturelle) 1 cap BID 10/13/20 21:00 Magnesium Sulfate 50 ml @ 25 mls/hr PRN DAILY PRN 10/13/20 08:00 Morphine Sulfate (Morphine Sulfate) 2 mg PRN Q2HR PRN 10/11/20 21:00 10/12/20 20:59 DC Norepinephrine Bitartrate 8 mg/ Dextrose 258 ml @ 16.157 mls/ hr CONT PRN 10/12/20 20:00 10/13/20 12:36 10.1 MLS/HR Ondansetron HCl (Zofran) 4 mg PRN Q8HRS PRN 10/11/20 21:00 10/12/20 20:59 DC Phenytoin Sodium (Dilantin) 100 mg 1X ONCE 10/11/20 21:00 10/11/20 21:01 DC Piperacillin Sod/ Tazobactam Sod 2.25 gm/Sodium Chloride 50 ml @ 100 mls/hr Q6HRS 10/12/20 12:00 10/14/20 13:18 100 MLS/HR Potassium Chloride 40 meq/ Sodium Chloride 1,020 ml @ 100 mls/hr [id number] 10/13/20 09:00 10/14/20 13:18 100 MLS/HR Potassium Phosphate 15 mmol/ Sodium Chloride 255 ml @ 127.5 mls/ hr Q2H 10/13/20 09:00 10/13/20 12:59 DC 10/13/20 12:22 127.5 MLS/HR Sodium Chloride 500 ml @ 0 mls/hr QID PRN 10/13/20 08:00 Sodium Chloride (Normal Saline Flush) 3 ml QSHIFT PRN 10/12/20 11:45 Lab Laboratory Tests Test 10/13/20 18:30 10/14/20 05:01 10/14/20 12:25 Potassium Level 3.8 mmol/L (3.5-5.1) 4.1 mmol/L (3.5-5.1) 4.2 mmol/L (3.5-5.1) White Blood Count 6.1 x10^3/uL (4.0-11.0) Red Blood Count 3.50 x10^6/uL (3.50-5.40) Hemoglobin 10.5 g/dL (12.0-15.5) Hematocrit 32.3 % (36.0-47.0) Mean Corpuscular Volume 93 fL (79-100) Mean Corpuscular Hemoglobin 30 pg (25-35) Mean Corpuscular Hemoglobin Concent 32 g/dL (31-37) Red Cell Distribution Width 13.9 % (11.5-14.5) Platelet Count 125 x10^3/uL (140-400) Neutrophils (%) (Auto) 48 % (31-73) Lymphocytes (%) (Auto) 34 % (24-48) Monocytes (%) (Auto) 9 % (0-9) Eosinophils (%) (Auto) 9 % (0-3) Basophils (%) (Auto) 0 % (0-3) Neutrophils # (Auto) 3.0 x10^3/uL (1.8-7.7) Lymphocytes # (Auto) 2.1 x10^3/uL (1.0-4.8) Monocytes # (Auto) 0.5 x10^3/uL (0.0-1.1) Eosinophils # (Auto) 0.6 x10^3/uL (0.0-0.7) Basophils # (Auto) 0.0 x10^3/uL (0.0-0.2) Sodium Level 155 mmol/L (136-145) Chloride Level 120 mmol/L (98-107) Carbon Dioxide Level 27 mmol/L (21-32) Anion Gap 8 (6-14) Blood Urea Nitrogen 23 mg/dL (7-20) Creatinine 1.1 mg/dL (0.6-1.0) Estimated GFR (Cockcroft-Gault) 50.3 BUN/Creatinine Ratio 21 (6-20) Glucose Level 112 mg/dL (70-99) Calcium Level 8.3 mg/dL (8.5-10.1) Magnesium Level 2.0 mg/dL (1.8-2.4) Total Bilirubin 0.5 mg/dL (0.2-1.0) Aspartate Amino Transf (AST/SGOT) 21 U/L (15-37) Alanine Aminotransferase (ALT/SGPT) 21 U/L (14-59) Alkaline Phosphatase 99 U/L (46-116) Creatine Kinase 145 U/L (26-192) Total Protein 6.4 g/dL (6.4-8.2) Albumin 3.3 g/dL (3.4-5.0) Albumin/Globulin Ratio 1.1 (1.0-1.7) Results All relevant outside records, renal labs, imaging studies, telemetry/EKG's were reviewed. Other IMPRESSION: 1. Increased bilateral renal cortical echogenicity, may indicate medical renal disease. Justicifation of Admission Dx: Justifications for Admission: Justification of Admission Dx: N/A YOMAIRA AGARWAL MD Oct 14, 2020 13:46
--- NOTE | 2020-10-14 14:07 | PDOC ---
PROGRESS NOTES Date of Service DATE: 10/14/20 TIME: 14:05 Subjective Subjective Patient seen and evaluated Objective Objective Vital Signs Date Time Temp Pulse Resp B/P (MAP) Pulse Ox O2 Delivery O2 Flow Rate FiO2 10/14/20 11:00 82 12 103/64 (77) 98 Room Air 10/14/20 07:00 97.6 97.6 Intake and Output 10/14/20 07:00 Intake Total 1130 ml Output Total 1580 ml Balance -450 ml Intake Oral 0 ml IV Total 1130 ml Output Urine Total 1580 ml Physical Exam Abdomen: Normal bowel sounds Heart: Regular rate General: mild distress Lungs: Other (Slightly decreased breath sounds) Assessment Assessment Problems Medical Problems: (1) Acute renal failure Status: Acute (2) Hypernatremia Status: Acute Hypotension: probably due to severe dehydration. No arrhythmias. Blood pressure improved today after IV fluids. MILVIA with hypernatremia: IV fluids as above. Renal evaluating. Creatinine improved today to 1.1. 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 Neurology is following Comment Review of Relevant I have reviewed the following items crissy (where applicable) has been applied. Labs Laboratory Tests Test 10/12/20 16:00 10/12/20 16:35 10/13/20 05:00 10/13/20 12:12 White Blood Count 8.1 x10^3/uL (4.0-11.0) 8.8 x10^3/uL (4.0-11.0) Red Blood Count 3.86 x10^6/uL (3.50-5.40) 3.55 x10^6/uL (3.50-5.40) Hemoglobin 11.7 g/dL (12.0-15.5) 10.7 g/dL (12.0-15.5) Hematocrit 36.1 % (36.0-47.0) 32.8 % (36.0-47.0) Mean Corpuscular Volume 94 fL (79-100) 92 fL (79-100) Mean Corpuscular Hemoglobin 30 pg (25-35) 30 pg (25-35) Mean Corpuscular Hemoglobin Concent 33 g/dL (31-37) 33 g/dL (31-37) Red Cell Distribution Width 14.4 % (11.5-14.5) 14.0 % (11.5-14.5) Platelet Count 144 x10^3/uL (140-400) 152 x10^3/uL (140-400) Neutrophils (%) (Auto) 64 % (31-73) 57 % (31-73) Lymphocytes (%) (Auto) 24 % (24-48) 26 % (24-48) Monocytes (%) (Auto) 10 % (0-9) 9 % (0-9) Eosinophils (%) (Auto) 2 % (0-3) 7 % (0-3) Basophils (%) (Auto) 0 % (0-3) 0 % (0-3) Neutrophils # (Auto) 5.2 x10^3/uL (1.8-7.7) 5.0 x10^3/uL (1.8-7.7) Lymphocytes # (Auto) 1.9 x10^3/uL (1.0-4.8) 2.3 x10^3/uL (1.0-4.8) Monocytes # (Auto) 0.8 x10^3/uL (0.0-1.1) 0.8 x10^3/uL (0.0-1.1) Eosinophils # (Auto) 0.1 x10^3/uL (0.0-0.7) 0.6 x10^3/uL (0.0-0.7) Basophils # (Auto) 0.0 x10^3/uL (0.0-0.2) 0.0 x10^3/uL (0.0-0.2) Sodium Level 161 mmol/L (136-145) 155 mmol/L (136-145) Potassium Level 3.5 mmol/L (3.5-5.1) 2.9 mmol/L (3.5-5.1) 3.4 mmol/L (3.5-5.1) Chloride Level 121 mmol/L (98-107) 118 mmol/L (98-107) Carbon Dioxide Level 26 mmol/L (21-32) 24 mmol/L (21-32) Anion Gap 14 (6-14) 13 (6-14) Blood Urea Nitrogen 70 mg/dL (7-20) 46 mg/dL (7-20) Creatinine 2.0 mg/dL (0.6-1.0) 1.7 mg/dL (0.6-1.0) Estimated GFR (Cockcroft-Gault) 25.2 30.5 Glucose Level 306 mg/dL (70-99) 250 mg/dL (70-99) Plasma/Serum Osmolality 357 mOsmol/kg (280-301) Calcium Level 7.9 mg/dL (8.5-10.1) 7.8 mg/dL (8.5-10.1) Thyroid Stimulating Hormone (TSH) 0.433 uIU/mL (0.358-3.74) Phenytoin (Dilantin) Level 30.7 mcg/mL (10.0-20.0) Phenytoin Last Dose Date 09/12/20 Phenytoin Last Dose Time 1430 Urine Osmolality 649 mOsmol/kg (.) BUN/Creatinine Ratio 27 (6-20) Phosphorus Level 2.2 mg/dL (2.6-4.7) Total Bilirubin 0.4 mg/dL (0.2-1.0) Aspartate Amino Transf (AST/SGOT) 21 U/L (15-37) Alanine Aminotransferase (ALT/SGPT) 20 U/L (14-59) Alkaline Phosphatase 99 U/L (46-116) Total Protein 6.6 g/dL (6.4-8.2) Albumin 3.3 g/dL (3.4-5.0) Albumin/Globulin Ratio 1.0 (1.0-1.7) Test 10/13/20 18:30 10/14/20 05:01 10/14/20 12:25 Potassium Level 3.8 mmol/L (3.5-5.1) 4.1 mmol/L (3.5-5.1) 4.2 mmol/L (3.5-5.1) White Blood Count 6.1 x10^3/uL (4.0-11.0) Red Blood Count 3.50 x10^6/uL (3.50-5.40) Hemoglobin 10.5 g/dL (12.0-15.5) Hematocrit 32.3 % (36.0-47.0) Mean Corpuscular Volume 93 fL (79-100) Mean Corpuscular Hemoglobin 30 pg (25-35) Mean Corpuscular Hemoglobin Concent 32 g/dL (31-37) Red Cell Distribution Width 13.9 % (11.5-14.5) Platelet Count 125 x10^3/uL (140-400) Neutrophils (%) (Auto) 48 % (31-73) Lymphocytes (%) (Auto) 34 % (24-48) Monocytes (%) (Auto) 9 % (0-9) Eosinophils (%) (Auto) 9 % (0-3) Basophils (%) (Auto) 0 % (0-3) Neutrophils # (Auto) 3.0 x10^3/uL (1.8-7.7) Lymphocytes # (Auto) 2.1 x10^3/uL (1.0-4.8) Monocytes # (Auto) 0.5 x10^3/uL (0.0-1.1) Eosinophils # (Auto) 0.6 x10^3/uL (0.0-0.7) Basophils # (Auto) 0.0 x10^3/uL (0.0-0.2) Sodium Level 155 mmol/L (136-145) Chloride Level 120 mmol/L (98-107) Carbon Dioxide Level 27 mmol/L (21-32) Anion Gap 8 (6-14) Blood Urea Nitrogen 23 mg/dL (7-20) Creatinine 1.1 mg/dL (0.6-1.0) Estimated GFR (Cockcroft-Gault) 50.3 BUN/Creatinine Ratio 21 (6-20) Glucose Level 112 mg/dL (70-99) Calcium Level 8.3 mg/dL (8.5-10.1) Magnesium Level 2.0 mg/dL (1.8-2.4) Total Bilirubin 0.5 mg/dL (0.2-1.0) Aspartate Amino Transf (AST/SGOT) 21 U/L (15-37) Alanine Aminotransferase (ALT/SGPT) 21 U/L (14-59) Alkaline Phosphatase 99 U/L (46-116) Creatine Kinase 145 U/L (26-192) Total Protein 6.4 g/dL (6.4-8.2) Albumin 3.3 g/dL (3.4-5.0) Albumin/Globulin Ratio 1.1 (1.0-1.7) Laboratory Tests Test 10/13/20 18:30 10/14/20 05:01 10/14/20 12:25 Potassium Level 3.8 mmol/L (3.5-5.1) 4.1 mmol/L (3.5-5.1) 4.2 mmol/L (3.5-5.1) White Blood Count 6.1 x10^3/uL (4.0-11.0) Red Blood Count 3.50 x10^6/uL (3.50-5.40) Hemoglobin 10.5 g/dL (12.0-15.5) Hematocrit 32.3 % (36.0-47.0) Mean Corpuscular Volume 93 fL (79-100) Mean Corpuscular Hemoglobin 30 pg (25-35) Mean Corpuscular Hemoglobin Concent 32 g/dL (31-37) Red Cell Distribution Width 13.9 % (11.5-14.5) Platelet Count 125 x10^3/uL (140-400) Neutrophils (%) (Auto) 48 % (31-73) Lymphocytes (%) (Auto) 34 % (24-48) Monocytes (%) (Auto) 9 % (0-9) Eosinophils (%) (Auto) 9 % (0-3) Basophils (%) (Auto) 0 % (0-3) Neutrophils # (Auto) 3.0 x10^3/uL (1.8-7.7) Lymphocytes # (Auto) 2.1 x10^3/uL (1.0-4.8) Monocytes # (Auto) 0.5 x10^3/uL (0.0-1.1) Eosinophils # (Auto) 0.6 x10^3/uL (0.0-0.7) Basophils # (Auto) 0.0 x10^3/uL (0.0-0.2) Sodium Level 155 mmol/L (136-145) Chloride Level 120 mmol/L (98-107) Carbon Dioxide Level 27 mmol/L (21-32) Anion Gap 8 (6-14) Blood Urea Nitrogen 23 mg/dL (7-20) Creatinine 1.1 mg/dL (0.6-1.0) Estimated GFR (Cockcroft-Gault) 50.3 BUN/Creatinine Ratio 21 (6-20) Glucose Level 112 mg/dL (70-99) Calcium Level 8.3 mg/dL (8.5-10.1) Magnesium Level 2.0 mg/dL (1.8-2.4) Total Bilirubin 0.5 mg/dL (0.2-1.0) Aspartate Amino Transf (AST/SGOT) 21 U/L (15-37) Alanine Aminotransferase (ALT/SGPT) 21 U/L (14-59) Alkaline Phosphatase 99 U/L (46-116) Creatine Kinase 145 U/L (26-192) Total Protein 6.4 g/dL (6.4-8.2) Albumin 3.3 g/dL (3.4-5.0) Albumin/Globulin Ratio 1.1 (1.0-1.7) Microbiology 10/12/20 Blood Culture - Preliminary, Resulted NO GROWTH AFTER 1 DAY 10/11/20 Urine Culture - Final, Complete Medications Current Medications Sodium Chloride 1,000 ml @ 1,000 mls/hr 1X ONCE IV Last administered on 10/11/20at 19:45; Start 10/11/20 at 19:45; Stop 10/11/20 at 20:46; Status DC Sodium Chloride 1,000 ml @ 100 mls/hr 1X ONCE IV Last administered on at 02:33; Start 10/11/20 at 21:00; Stop 10/12/20 at 17:35; Status DC Ondansetron HCl (Zofran) 4 mg PRN Q8HRS PRN IV NAUSEA/VOMITING 1ST CHOICE; Start 10/11/20 at 21:00; Stop 10/12/20 at 20:59; Status DC Morphine Sulfate (Morphine Sulfate) 2 mg PRN Q2HR PRN IV SEVERE PAIN 7-10; Start 10/11/20 at 21:00; Stop 10/12/20 at 20:59; Status DC Phenytoin Sodium (Dilantin) 100 mg 1X ONCE PO ; Start 10/11/20 at 21:00; Stop 10/11/20 at 21:01; Status DC Fosphenytoin Sodium (Cerebyx) 167 mg Q8HRS IV Last administered on 10/14/20at 05:36; Start 10/12/20 at 06:00 Dextrose/Sodium Chloride 1,000 ml @ 75 mls/hr [id number] IV Last administered on 10/12/20at 08:21; Start 10/12/20 at 08:00; Stop 10/12/20 at 17:35; Status DC Ceftriaxone Sodium (Rocephin) 1 gm Q24H IVP Last administered on 10/12/20at 08:21; Start 10/12/20 at 09:00; Stop 10/12/20 at 11:48; Status DC Sodium Chloride (Normal Saline Flush) 3 ml QSHIFT PRN IV AFTER MEDS AND BLOOD DRAWS; Start 10/12/20 at 11:45 Acetaminophen (Tylenol Supp) 650 mg PRN Q4HRS PRN CO TEMP OVER 100.4F OR MILD PAIN; Start 10/12/20 at 11:45 Docusate Sodium (Colace) 100 mg PRN BID PRN PO HARD STOOLS; Start 10/12/20 at 11:45 Albuterol Sulfate (Ventolin Neb Soln) 2.5 mg PRN Q4HRS PRN NEB SHORTNESS OF BREATH; Start 10/12/20 at 11:45 Guaifenesin (Robitussin) 200 mg PRN Q4HRS PRN PO COUGH; Start 10/12/20 at 11:45 Piperacillin Sod/ Tazobactam Sod 2.25 gm/Sodium Chloride 50 ml @ 100 mls/hr Q6HRS IV Last administered on 10/14/20at 13:18; Start 10/12/20 at 12:00 Heparin Sodium (Porcine) (Heparin Sodium) 5,000 unit Q8HRS SQ Last administered on 10/14/20at 05:39; Start 10/12/20 at 14:00 Famotidine (Pepcid Vial) 20 mg DAILY IVP Last administered on 10/14/20at 09:27; Start 10/12/20 at 14:00 Albumin Human 250 ml @ 62.5 mls/hr Q6HRS IV Last administered on 10/13/20at 12:37; Start 10/12/20 at 14:00; Stop 10/13/20 at 12:39; Status DC Dextrose/Sodium Chloride 1,000 ml @ 75 mls/hr [id number] IV Last administered on 10/13/20at 03:07; Start 10/12/20 at 17:45; Stop 10/13/20 at 07:57; Status DC Norepinephrine Bitartrate 8 mg/ Dextrose 258 ml @ 16.157 mls/ hr CONT PRN IV PER PROTOCOL Last administered on 10/13/20at 12:36; Start 10/12/20 at 20:00 Potassium Chloride 40 meq/ Sodium Chloride 1,020 ml @ 100 mls/hr [id number] IV Last administered on 10/14/20at 13:18; Start 10/13/20 at 09:00; Stop 10/14/20 at 13:47; Status DC Magnesium Sulfate 50 ml @ 25 mls/hr PRN DAILY PRN IV for Mag < 1.7 on am labs; Start 10/13/20 at 08:00 Sodium Chloride 500 ml @ 0 mls/hr QID PRN IV MAP < 65 ; Start 10/13/20 at 08:00 Potassium Phosphate 15 mmol/ Sodium Chloride 255 ml @ 127.5 mls/ hr Q2H IV Last administered on 10/13/20at 12:22; Start 10/13/20 at 09:00; Stop 10/13/20 at 12:59; Status DC Lactobacillus Rhamnosus (Culturelle) 1 cap BID PO ; Start 10/13/20 at 21:00 Amino Acids/ Glycerin/ Electrolytes 1,000 ml @ 80 mls/hr [id number] IV ; Start 10/14/20 at 14:00 Active Scripts Active Reported Vitamin D3-Aloe 1,000 Unit Tab (Ca Cmb 1/Vit D3/B-6/Fa/B12/Av) 1 Each Tablet 1 Each PO DAILY Vitamin C (Ascorbic Acid) 500 Mg Capsule.er 500 Mg PO DAILY Spironolactone 25 Mg Tablet 25 Mg PO DAILY Selsun Blue (Salicylic Acid) 325 Ml Shampoo 7 Oz TP TU,FRI Lisinopril 10 Mg Tablet 10 Mg PO DAILY Linzess (Linaclotide) 290 Mcg Capsule 72 Mcg PO DAILY07 Docusate Sodium 100 Mg Capsule 1 Cap PO DAILY 30 Days Dilantin (Phenytoin Sodium Extended) 100 Mg Capsule 200 Mg PO BID Dilantin (Phenytoin Sodium Extended) 100 Mg Capsule 1 Cap PO DAILY16 Atenolol 50 Mg Tablet 50 Mg PO DAILY Children's Aspirin (Aspirin) 81 Mg Tab.chew 81 Mg PO DAILY PRN Acetaminophen 500 Mg Tablet 500 Mg PO Q4HRS PRN Vitals/I & O Vital Sign - Last 24 Hours 10/13/20 10/13/20 10/13/20 10/13/20 15:00 15:30 16:00 16:00 Temp 98.3 98.3 Pulse 78 86 Resp 9 8 B/P (MAP) 101/73 (82) 92/59 (70) 113/85 (94) Pulse Ox 99 100 O2 Delivery Room Air Room Air Room Air 10/13/20 10/13/20 10/13/20 10/13/20 17:00 18:00 19:30 19:33 Temp 98.4 98.4 Pulse 78 82 75 Resp 15 11 16 B/P (MAP) 90/60 (70) 90/55 (67) 98/66 (77) Pulse Ox 100 100 100 O2 Delivery Room Air Room Air Room Air Room Air 10/13/20 10/13/20 10/13/20 10/13/20 20:02 21:14 21:39 23:23 Temp 98.4 98.2 98.6 98.6 98.4 98.2 98.6 98.6 Pulse 77 82 77 76 Resp 16 B/P (MAP) 93/64 (74) 93/64 (74) 98/66 (77) 100/69 (79) Pulse Ox 100 99 98 100 O2 Delivery Room Air Room Air Room Air Room Air 10/13/20 10/13/20 10/14/20 10/14/20 23:48 23:51 00:53 01:50 Temp 98.6 98.6 98.3 98.6 98.6 98.3 Pulse 83 79 79 Resp 20 12 B/P (MAP) 120/84 (96) 119/78 (92) 108/77 (87) Pulse Ox 96 99 100 O2 Delivery Room Air Room Air Room Air Room Air 10/14/20 10/14/20 10/14/20 10/14/20 02:54 03:54 03:57 05:01 Temp 98.3 97.7 98.3 97.7 Pulse 78 78 78 Resp 14 12 12 B/P (MAP) 110/79 (89) 114/78 (90) 119/80 (93) Pulse Ox 100 100 100 O2 Delivery Room Air Room Air Room Air Room Air 10/14/20 10/14/20 10/14/20 10/14/20 05:51 07:00 07:30 08:00 Temp 97.7 97.6 97.7 97.6 Pulse 81 76 80 Resp 14 B/P (MAP) 101/68 (79) 107/69 (82) 98/66 (77) Pulse Ox 100 100 100 O2 Delivery Room Air Room Air Room Air Room Air 10/14/20 10/14/20 10/14/20 09:00 10:00 11:00 Pulse 78 81 82 Resp 12 10 12 B/P (MAP) 92/67 (75) 91/68 (76) 103/64 (77) Pulse Ox 100 98 98 O2 Delivery Room Air Room Air Room Air Intake and Output 10/13/20 10/13/20 10/14/20 15:00 23:00 07:00 Intake Total 50 ml 1080 ml 0 ml Output Total 370 ml 590 ml 620 ml Balance -320 ml 490 ml -620 ml Justifications for Admission General Conditions Poss tachycardia?: Yes Justification for admission: Patient has tachycardia (> 100 beats per minute) which is not readily corrected by appropriate treatment within 12 to 24 hours. SEVERE DEHYDRATION, MILVIA Other Justification Nutrition Consultation Dietary Evaluation: Recommendations by RD: Dietary education by RD, Increase Calorie Intake, Protein supplementation Comments: REC advance diet as able within 24 - 72 hrs, per RN pt will need POST EXCHANGE MANAGER eval due to pt's altered mental status REC goal diet regular or renal pending labs, textures per POST EXCHANGE MANAGER REC oral supplements (nepro or Ensure) q day or more often per pt preference Expected Outcomes/Goals: diet advancement Malnutrition Findings: Food and Nutrition Intake (Mod: <75% est energy req 7days Body Fat Depletion (Non Severe: Mild Depletion Weight Status: Appropriate ISIS SERRANO MD Oct 14, 2020 14:06
[2020-10-14] MEDS: AMINO AC 3%/ELECTROLYTE/GLYCER 1,000 ML IV SCH (15:22)
[2020-10-15 03:30] VITALS: BP 110/74
[2020-10-15 04:53] LABS: BASO % 0 % (0-3); EOS # 0.4 x10^3/uL (0.0-0.7); EOS % 8 % (0-3); HEMATOCRIT 33.2 % (36.0-47.0); HEMOGLOBIN 10.8 g/dL (12.0-15.5); LYMPH # 1.6 x10^3/uL (1.0-4.8); LYMPH % 31 % (24-48); MEAN CORPUSCULAR HEMOGLOBIN 30 pg (25-35); MEAN CORPUSCULAR HGB CONC 33 g/dL (31-37); MEAN CORPUSCULAR VOLUME 92 fL (79-100); MONO # 0.6 x10^3/uL (0.0-1.1); MONO % 12 % (0-9); NEUT # 2.5 x10^3/uL (1.8-7.7); NEUT % 50 % (31-73); PLATELET COUNT 128 x10^3/uL (140-400); RED BLOOD COUNT 3.62 x10^6/uL (3.50-5.40); RED CELL DISTRIBUTION WIDTH 13.7 % (11.5-14.5); WHITE BLOOD COUNT 5.1 x10^3/uL (4.0-11.0)
[2020-10-15 05:23] LABS: ALBUMIN 2.7 g/dL (3.4-5.0); ALBUMIN/GLOBULIN RATIO 0.8 (1.0-1.7); CALCIUM 8.1 mg/dL (8.5-10.1); CREATININE 0.9 mg/dL (0.6-1.0); GFR 63.4; POTASSIUM 3.9 mmol/L (3.5-5.1); TOTAL BILIRUBIN 0.4 mg/dL (0.2-1.0); TOTAL PROTEIN 5.9 g/dL (6.4-8.2)
[2020-10-15] MEDS: PIPERACILLIN/TAZOBACTAM 2.25 GM in IV NORMAL SALINE 50ML 50 ML IV SCH ×4 (05:45→23:36)
[2020-10-15] MEDS: FOSPHENYTOIN 100 MG/2 ML VIAL. IV SCH ×3 (05:45→21:07)
[2020-10-15] MEDS: HEPARIN for SUB-Q USE 5,000 UNIT/ML VIAL. SQ SCH ×3 (05:46→21:22)
[2020-10-15 07:00] VITALS: BP 112/78
[2020-10-15] MEDS: LACTOBACILLUS RHAMNOSUS GG 1 CAPSULE. PO SCH ×2 (09:00→21:00)
[2020-10-15] MEDS: AMINO AC 3%/ELECTROLYTE/GLYCER 1,000 ML IV SCH ×2 (09:08→15:00)
[2020-10-15] MEDS: FAMOTIDINE 20 MG/2 ML VIAL IVP SCH (09:09)
[2020-10-15 11:00] VITALS: BP 96/65
--- NOTE | 2020-10-15 11:08 | PDOC ---
PROGRESS NOTES Date of Service: DATE: 10/15/20 TIME: 11:08 Chief Complaint Chief Complaint VTE Prophylaxis Ordered VTE Prophylaxis Devices: Yes VTE Pharmacological Prophylaxi: Yes Assessment/Plan Assessment/Plan impression 1. Severe electrolyte imbalance with hypernatremia, , hyperchloremia volume depleted 2. Altered mental status ,Small focus of hyperdensity noted on described above nonspecific may represent calcification versus punctate hemorrhage Hypodensity in the aneta undoubtedly represents calcification 3. morbid obesity 4. remote cva 5. hx dysphagia 6. HYPOTENSION, volume depleted 7. HYPOKALEMIA 8. MILVIA // Increased bilateral renal cortical echogenicity, may indicate medical renal disease. Hypodensity in the aneta undoubtedly represents calcification plan 1. admit ICU 2. Consult nephrology 3. consult neurology 4. HYPOTONIC IV FLUID SUPPORT , CONTINUE 5. DVT prophylaxis 6. PT/OT/ST 7. GI CONSULT 8. REPLETE LYTES 10/14 does not want to eat or drink, May want palliative care, will address 10/15 agrees with hospice consult, intake, visit for palliative care, refusing iv restart 38 min cc time Justifications for Admission Other Justification History of Present Illness History of Present Illness Identification/Chief Complaint Chief Complaint altered mental status, HYPOTENSION, DEHYDRATION History of Present Illness History of Present Illness shelter patient seen in ER has been declined to eat or take her medications for approximately 1 week. poor historian and unable to provide any significant history. No symptoms at presentation per ER note . Staff the shelter believes she has some change from her baseline 60 year old with altered mental status and treated behavior. symptoms at this time. Staff the shelter do believe she has some change from her baseline but the timeline is not specific. No acute changes today and no deviation from today. No reported fever, chills, chest pain or shortness of breath. sodium noted to be 161 in ER Past Medical History Past Medical History CENTRAL NERVOUS SYSTEM: Seizure (? Nonepileptic) GI: Other (Dysphagia) Infectious disease: Other (COVID-19 in February 2020) Past Surgical History Past Surgical History: No pertinent history Family History Family History: No pertinent hx Social History Social History longterm resident Cardiovascular: HTN, Hyperlipidemia CENTRAL NERVOUS SYSTEM: Dementia Heme/Onc: No pertinent hx Musculoskeletal: Osteoarthritis Dermatology: No pertinent hx Family History Family History: Hypertension Social History Smoke: No ALCOHOL: none Drugs: None Vitals Vitals Vital Signs Date Time Temp Pulse Resp B/P (MAP) Pulse Ox O2 Delivery O2 Flow Rate FiO2 10/15/20 07:00 98.8 84 16 112/78 (14) 100 Room Air 98.8 Physical Exam General: mild distress Heart: Regular rate, Normal S1 Lungs: Clear Abdomen: Normal bowel sounds Extremities: No cyanosis, No edema Skin: No breakdown Labs LABS EZEKIEL HUERTA MD,ISIS EASTON,DANG Miller MD ORDERED: BCULT Procedure Result BLOOD CULTURE Preliminary NO GROWTH AFTER 2 DAYS Laboratory Tests Test 10/14/20 12:25 10/15/20 04:00 Potassium Level 4.2 mmol/L (3.5-5.1) 3.9 mmol/L (3.5-5.1) White Blood Count 5.1 x10^3/uL (4.0-11.0) Red Blood Count 3.62 x10^6/uL (3.50-5.40) Hemoglobin 10.8 g/dL (12.0-15.5) Hematocrit 33.2 % (36.0-47.0) Mean Corpuscular Volume 92 fL (79-100) Mean Corpuscular Hemoglobin 30 pg (25-35) Mean Corpuscular Hemoglobin Concent 33 g/dL (31-37) Red Cell Distribution Width 13.7 % (11.5-14.5) Platelet Count 128 x10^3/uL (140-400) Neutrophils (%) (Auto) 50 % (31-73) Lymphocytes (%) (Auto) 31 % (24-48) Monocytes (%) (Auto) 12 % (0-9) Eosinophils (%) (Auto) 8 % (0-3) Basophils (%) (Auto) 0 % (0-3) Neutrophils # (Auto) 2.5 x10^3/uL (1.8-7.7) Lymphocytes # (Auto) 1.6 x10^3/uL (1.0-4.8) Monocytes # (Auto) 0.6 x10^3/uL (0.0-1.1) Eosinophils # (Auto) 0.4 x10^3/uL (0.0-0.7) Basophils # (Auto) 0.0 x10^3/uL (0.0-0.2) Sodium Level 151 mmol/L (136-145) Chloride Level 116 mmol/L (98-107) Carbon Dioxide Level 27 mmol/L (21-32) Anion Gap 8 (6-14) Blood Urea Nitrogen 17 mg/dL (7-20) Creatinine 0.9 mg/dL (0.6-1.0) Estimated GFR (Cockcroft-Gault) 63.4 BUN/Creatinine Ratio 19 (6-20) Glucose Level 93 mg/dL (70-99) Calcium Level 8.1 mg/dL (8.5-10.1) Magnesium Level 1.9 mg/dL (1.8-2.4) Total Bilirubin 0.4 mg/dL (0.2-1.0) Aspartate Amino Transf (AST/SGOT) 20 U/L (15-37) Alanine Aminotransferase (ALT/SGPT) 20 U/L (14-59) Alkaline Phosphatase 102 U/L (46-116) Total Protein 5.9 g/dL (6.4-8.2) Albumin 2.7 g/dL (3.4-5.0) Albumin/Globulin Ratio 0.8 (1.0-1.7) Assessment and Plan Assessmemt and Plan Problems Medical Problems: (1) Acute renal failure Status: Acute (2) Hypernatremia Status: Acute Comment Review of Relevant I have reviewed the following items crissy (where applicable) has been applied. Labs Laboratory Tests Test 10/13/20 12:12 10/13/20 18:30 10/14/20 05:01 10/14/20 12:25 Potassium Level 3.4 mmol/L (3.5-5.1) 3.8 mmol/L (3.5-5.1) 4.1 mmol/L (3.5-5.1) 4.2 mmol/L (3.5-5.1) White Blood Count 6.1 x10^3/uL (4.0-11.0) Red Blood Count 3.50 x10^6/uL (3.50-5.40) Hemoglobin 10.5 g/dL (12.0-15.5) Hematocrit 32.3 % (36.0-47.0) Mean Corpuscular Volume 93 fL (79-100) Mean Corpuscular Hemoglobin 30 pg (25-35) Mean Corpuscular Hemoglobin Concent 32 g/dL (31-37) Red Cell Distribution Width 13.9 % (11.5-14.5) Platelet Count 125 x10^3/uL (140-400) Neutrophils (%) (Auto) 48 % (31-73) Lymphocytes (%) (Auto) 34 % (24-48) Monocytes (%) (Auto) 9 % (0-9) Eosinophils (%) (Auto) 9 % (0-3) Basophils (%) (Auto) 0 % (0-3) Neutrophils # (Auto) 3.0 x10^3/uL (1.8-7.7) Lymphocytes # (Auto) 2.1 x10^3/uL (1.0-4.8) Monocytes # (Auto) 0.5 x10^3/uL (0.0-1.1) Eosinophils # (Auto) 0.6 x10^3/uL (0.0-0.7) Basophils # (Auto) 0.0 x10^3/uL (0.0-0.2) Sodium Level 155 mmol/L (136-145) Chloride Level 120 mmol/L (98-107) Carbon Dioxide Level 27 mmol/L (21-32) Anion Gap 8 (6-14) Blood Urea Nitrogen 23 mg/dL (7-20) Creatinine 1.1 mg/dL (0.6-1.0) Estimated GFR (Cockcroft-Gault) 50.3 BUN/Creatinine Ratio 21 (6-20) Glucose Level 112 mg/dL (70-99) Calcium Level 8.3 mg/dL (8.5-10.1) Magnesium Level 2.0 mg/dL (1.8-2.4) Total Bilirubin 0.5 mg/dL (0.2-1.0) Aspartate Amino Transf (AST/SGOT) 21 U/L (15-37) Alanine Aminotransferase (ALT/SGPT) 21 U/L (14-59) Alkaline Phosphatase 99 U/L (46-116) Creatine Kinase 145 U/L (26-192) Total Protein 6.4 g/dL (6.4-8.2) Albumin 3.3 g/dL (3.4-5.0) Albumin/Globulin Ratio 1.1 (1.0-1.7) Test 10/15/20 04:00 White Blood Count 5.1 x10^3/uL (4.0-11.0) Red Blood Count 3.62 x10^6/uL (3.50-5.40) Hemoglobin 10.8 g/dL (12.0-15.5) Hematocrit 33.2 % (36.0-47.0) Mean Corpuscular Volume 92 fL (79-100) Mean Corpuscular Hemoglobin 30 pg (25-35) Mean Corpuscular Hemoglobin Concent 33 g/dL (31-37) Red Cell Distribution Width 13.7 % (11.5-14.5) Platelet Count 128 x10^3/uL (140-400) Neutrophils (%) (Auto) 50 % (31-73) Lymphocytes (%) (Auto) 31 % (24-48) Monocytes (%) (Auto) 12 % (0-9) Eosinophils (%) (Auto) 8 % (0-3) Basophils (%) (Auto) 0 % (0-3) Neutrophils # (Auto) 2.5 x10^3/uL (1.8-7.7) Lymphocytes # (Auto) 1.6 x10^3/uL (1.0-4.8) Monocytes # (Auto) 0.6 x10^3/uL (0.0-1.1) Eosinophils # (Auto) 0.4 x10^3/uL (0.0-0.7) Basophils # (Auto) 0.0 x10^3/uL (0.0-0.2) Sodium Level 151 mmol/L (136-145) Potassium Level 3.9 mmol/L (3.5-5.1) Chloride Level 116 mmol/L (98-107) Carbon Dioxide Level 27 mmol/L (21-32) Anion Gap 8 (6-14) Blood Urea Nitrogen 17 mg/dL (7-20) Creatinine 0.9 mg/dL (0.6-1.0) Estimated GFR (Cockcroft-Gault) 63.4 BUN/Creatinine Ratio 19 (6-20) Glucose Level 93 mg/dL (70-99) Calcium Level 8.1 mg/dL (8.5-10.1) Magnesium Level 1.9 mg/dL (1.8-2.4) Total Bilirubin 0.4 mg/dL (0.2-1.0) Aspartate Amino Transf (AST/SGOT) 20 U/L (15-37) Alanine Aminotransferase (ALT/SGPT) 20 U/L (14-59) Alkaline Phosphatase 102 U/L (46-116) Total Protein 5.9 g/dL (6.4-8.2) Albumin 2.7 g/dL (3.4-5.0) Albumin/Globulin Ratio 0.8 (1.0-1.7) Laboratory Tests Test 10/14/20 12:25 10/15/20 04:00 Potassium Level 4.2 mmol/L (3.5-5.1) 3.9 mmol/L (3.5-5.1) White Blood Count 5.1 x10^3/uL (4.0-11.0) Red Blood Count 3.62 x10^6/uL (3.50-5.40) Hemoglobin 10.8 g/dL (12.0-15.5) Hematocrit 33.2 % (36.0-47.0) Mean Corpuscular Volume 92 fL (79-100) Mean Corpuscular Hemoglobin 30 pg (25-35) Mean Corpuscular Hemoglobin Concent 33 g/dL (31-37) Red Cell Distribution Width 13.7 % (11.5-14.5) Platelet Count 128 x10^3/uL (140-400) Neutrophils (%) (Auto) 50 % (31-73) Lymphocytes (%) (Auto) 31 % (24-48) Monocytes (%) (Auto) 12 % (0-9) Eosinophils (%) (Auto) 8 % (0-3) Basophils (%) (Auto) 0 % (0-3) Neutrophils # (Auto) 2.5 x10^3/uL (1.8-7.7) Lymphocytes # (Auto) 1.6 x10^3/uL (1.0-4.8) Monocytes # (Auto) 0.6 x10^3/uL (0.0-1.1) Eosinophils # (Auto) 0.4 x10^3/uL (0.0-0.7) Basophils # (Auto) 0.0 x10^3/uL (0.0-0.2) Sodium Level 151 mmol/L (136-145) Chloride Level 116 mmol/L (98-107) Carbon Dioxide Level 27 mmol/L (21-32) Anion Gap 8 (6-14) Blood Urea Nitrogen 17 mg/dL (7-20) Creatinine 0.9 mg/dL (0.6-1.0) Estimated GFR (Cockcroft-Gault) 63.4 BUN/Creatinine Ratio 19 (6-20) Glucose Level 93 mg/dL (70-99) Calcium Level 8.1 mg/dL (8.5-10.1) Magnesium Level 1.9 mg/dL (1.8-2.4) Total Bilirubin 0.4 mg/dL (0.2-1.0) Aspartate Amino Transf (AST/SGOT) 20 U/L (15-37) Alanine Aminotransferase (ALT/SGPT) 20 U/L (14-59) Alkaline Phosphatase 102 U/L (46-116) Total Protein 5.9 g/dL (6.4-8.2) Albumin 2.7 g/dL (3.4-5.0) Albumin/Globulin Ratio 0.8 (1.0-1.7) Microbiology 12/31/20 Blood Culture - Preliminary, Resulted NO GROWTH AFTER 2 DAYS 10/11/20 Urine Culture - Final, Complete Medications Current Medications Sodium Chloride 1,000 ml @ 1,000 mls/hr 1X ONCE IV Last administered on 10/11/20at 19:45; Start 10/11/20 at 19:45; Stop 10/11/20 at 20:46; Status DC Sodium Chloride 1,000 ml @ 100 mls/hr 1X ONCE IV Last administered on 10/11/20at 02:33; Start 10/11/20 at 21:00; Stop 10/12/20 at 17:35; Status DC Ondansetron HCl (Zofran) 4 mg PRN Q8HRS PRN IV NAUSEA/VOMITING 1ST CHOICE; Start 10/11/20 at 21:00; Stop 10/12/20 at 20:59; Status DC Morphine Sulfate (Morphine Sulfate) 2 mg PRN Q2HR PRN IV SEVERE PAIN 7-10; Start 10/11/20 at 21:00; Stop 10/12/20 at 20:59; Status DC Phenytoin Sodium (Dilantin) 100 mg 1X ONCE PO ; Start 10/11/20 at 21:00; Stop 10/11/20 at 21:01; Status DC Fosphenytoin Sodium (Cerebyx) 167 mg Q8HRS IV Last administered on 10/14/20at 15:21; Start 10/12/20 at 06:00; Stop 10/14/20 at 20:56; Status DC Dextrose/Sodium Chloride 1,000 ml @ 75 mls/hr [id number] IV Last administered on 10/12/20at 08:21; Start 10/12/20 at 08:00; Stop 10/12/20 at 17:35; Status DC Ceftriaxone Sodium (Rocephin) 1 gm Q24H IVP Last administered on 10/12/20at 08:21; Start 10/12/20 at 09:00; Stop 10/12/20 at 11:48; Status DC Sodium Chloride (Normal Saline Flush) 3 ml QSHIFT PRN IV AFTER MEDS AND BLOOD DRAWS; Start 10/12/20 at 11:45 Acetaminophen (Tylenol Supp) 650 mg PRN Q4HRS PRN IN TEMP OVER 100.4F OR MILD PAIN; Start 10/12/20 at 11:45 Docusate Sodium (Colace) 100 mg PRN BID PRN PO HARD STOOLS; Start 10/12/20 at 11:45 Albuterol Sulfate (Ventolin Neb Soln) 2.5 mg PRN Q4HRS PRN NEB SHORTNESS OF BREATH; Start 10/12/20 at 11:45 Guaifenesin (Robitussin) 200 mg PRN Q4HRS PRN PO COUGH; Start 10/12/20 at 11:45 Piperacillin Sod/ Tazobactam Sod 2.25 gm/Sodium Chloride 50 ml @ 100 mls/hr Q6HRS IV Last administered on 10/15/20at 05:45; Start 10/12/20 at 12:00 Heparin Sodium (Porcine) (Heparin Sodium) 5,000 unit Q8HRS SQ Last administered on 10/15/20at 05:46; Start 10/12/20 at 14:00 Famotidine (Pepcid Vial) 20 mg DAILY IVP Last administered on 10/15/20at 09:09; Start 10/12/20 at 14:00 Albumin Human 250 ml @ 62.5 mls/hr Q6HRS IV Last administered on 10/13/20at 12:37; Start 10/12/20 at 14:00; Stop 10/13/20 at 12:39; Status DC Dextrose/Sodium Chloride 1,000 ml @ 75 mls/hr [id number] IV Last administered on 10/13/20at 03:07; Start 10/12/20 at 17:45; Stop 10/13/20 at 07:57; Status DC Norepinephrine Bitartrate 8 mg/ Dextrose 258 ml @ 16.157 mls/ hr CONT PRN IV PER PROTOCOL Last administered on 10/13/20at 12:36; Start 10/12/20 at 20:00; Stop 10/14/20 at 20:54; Status DC Potassium Chloride 40 meq/ Sodium Chloride 1,020 ml @ 100 mls/hr [id number] IV Last administered on 10/14/20at 13:18; Start 10/13/20 at 09:00; Stop 10/14/20 at 13:47; Status DC Magnesium Sulfate 50 ml @ 25 mls/hr PRN DAILY PRN IV for Mag < 1.7 on am labs; Start 10/13/20 at 08:00 Sodium Chloride 500 ml @ 0 mls/hr QID PRN IV MAP < 65 ; Start 10/13/20 at 08:00 Potassium Phosphate 15 mmol/ Sodium Chloride 255 ml @ 127.5 mls/ hr Q2H IV Last administered on 10/13/20at 12:22; Start 10/13/20 at 09:00; Stop 10/13/20 at 12:59; Status DC Lactobacillus Rhamnosus (Culturelle) 1 cap BID PO ; Start 10/13/20 at 21:00 Amino Acids/ Glycerin/ Electrolytes 1,000 ml @ 80 mls/hr [id number] IV Last administered on 10/15/20at 09:08; Start 10/14/20 at 14:00 Fosphenytoin Sodium (Cerebyx) 100 mg Q8HRS IV Last administered on 10/15/20at 05:45; Start 10/14/20 at 22:00 Active Scripts Active Reported Vitamin D3-Aloe 1,000 Unit Tab (Ca Cmb 1/Vit D3/B-6/Fa/B12/Av) 1 Each Tablet 1 Each PO DAILY Vitamin C (Ascorbic Acid) 500 Mg Capsule.er 500 Mg PO DAILY Spironolactone 25 Mg Tablet 25 Mg PO DAILY Selsun Blue (Salicylic Acid) 325 Ml Shampoo 7 Oz TP TU,FRI Lisinopril 10 Mg Tablet 10 Mg PO DAILY Linzess (Linaclotide) 290 Mcg Capsule 72 Mcg PO DAILY07 Docusate Sodium 100 Mg Capsule 1 Cap PO DAILY 30 Days Dilantin (Phenytoin Sodium Extended) 100 Mg Capsule 200 Mg PO BID Dilantin (Phenytoin Sodium Extended) 100 Mg Capsule 1 Cap PO DAILY16 Atenolol 50 Mg Tablet 50 Mg PO DAILY Children's Aspirin (Aspirin) 81 Mg Tab.chew 81 Mg PO DAILY PRN Acetaminophen 500 Mg Tablet 500 Mg PO Q4HRS PRN Vitals/I & O Vital Sign - Last 24 Hours 10/14/20 10/14/20 10/14/20 10/14/20 12:00 12:00 13:00 14:00 Pulse 74 82 80 Resp 12 12 12 B/P (MAP) 96/40 (58) 99/65 (76) 99/68 (78) Pulse Ox 98 98 98 O2 Delivery Room Air Room Air Room Air Room Air 1/2/10/14/20 10/14/20 10/14/20 15:00 16:00 16:00 17:00 Pulse 78 80 74 Resp 12 12 B/P (MAP) 104/69 (81) 108/70 (83) 118/70 (86) Pulse Ox 98 98 100 O2 Delivery Room Air Room Air Room Air Room Air 10/14/20 10/14/20 10/14/20 10/15/20 18:00 20:20 23:00 03:30 Temp 99.0 98.9 99.0 98.9 Pulse 76 83 87 Resp 17 18 B/P (MAP) 108/72 (84) 110/68 (82) 110/74 (86) Pulse Ox 100 98 97 O2 Delivery Room Air Room Air Room Air Room Air 10/15/20 07:00 Temp 98.8 98.8 Pulse 84 Resp 16 B/P (MAP) 112/78 (89) Pulse Ox 100 O2 Delivery Room Air Intake and Output 10/14/20 10/14/20 10/15/20 15:00 23:00 07:00 Intake Total 1050 ml 200 ml 0 ml Output Total 640 ml 200 ml 150 ml Balance 410 ml 0 ml -150 ml Nutrition Consultation Dietary Evaluation: Recommendations by RD: Dietary education by RD, Increase Calorie Intake, Protein supplementation Comments: REC advance diet as able within 24 - 72 hrs, per RN pt will need LINE CONTROLLER eval due to pt's altered mental status REC goal diet regular or renal pending labs, textures per [employer]ER REC oral supplements (nepro or Ensure) q day or more often per pt preference Expected Outcomes/Goals: diet advancement Malnutrition Findings: Food and Nutrition Intake (Mod: <75% est energy req 7days Body Fat Depletion (Non Severe: Mild Depletion Weight Status: Appropriate Justicifation of Admission Dx: Justifications for Admission: Justification of Admission Dx: N/A GINO MOYER MD Oct 15, 2020 11:08
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
--- NOTE | 2020-10-15 14:39 | PDOC ---
DATE OF SERVICE: DOS: DATE: 10/15/20 TIME: 14:38 SUBJECTIVE ROS Follow-up for MILVIA and hypernatremia Patient remains minimally verbal. She tells me she is eating well but the nurses claims she is barely eating any or drinking any. OBJECTIVE Vital Signs Vital Signs Date Time Temp Pulse Resp B/P (MAP) Pulse Ox O2 Delivery O2 Flow Rate FiO2 10/15/20 11:00 98.7 99 16 96/65 (75) 100 Room Air 98.7 I & 0 Intake and Output 10/15/20 07:00 Intake Total 1250 ml Output Total 990 ml Balance 260 ml Intake Oral 0 ml IV Total 1250 ml Output Urine Total 990 ml PHYSICAL EXAM Physical Exam GEN: Awake, Oriented x 1 at best , In no distress EYES: Vision Unchanged, Conjunctiva Normal EN: No EN Drainage, Mucous Membranes moist NECK: no JVD, no JVP, Supple, no Thyromegaly CVS: S1S2, ? Murmur, No Gallop, No Rub,no Edema RESP: no Rales, no Rhonchi,no Acc. Muscle Use GI: BS + ve, NO Bruit, Non Tender, Non Distended : no CVA tenderness, no Suprapubic Tenderness DIAGNOSIS/ASSESSMENT Assessment & Plan MILVIA suspect Pre renal/Dehydration: Now resolved SEv Dehydration - improving with hypotonic IVF as ordered Low K : Now resolved and replaced. Magnesium 1.9 on last check HyperNatremia -change IV fluids to PPN given poor p.o. intake. No polyuria noted per se Hypotension -blood pressures improving currently. Oliguria -urine output much better at this time Poor p.o. intake: Continue PPN for now COMMENT/RELEVANT DATA Meds Current Medications Medications (Trade) Dose Ordered Sig/Khoi Start Time Stop Time Status Last Admin Dose Admin Acetaminophen (Tylenol Supp) 650 mg PRN Q4HRS PRN 10/12/20 11:45 Albumin Human 250 ml @ 62.5 mls/hr Q6HRS 10/12/20 14:00 10/13/20 12:39 DC 10/13/20 12:37 62.5 MLS/HR Albuterol Sulfate (Ventolin Neb Soln) 2.5 mg PRN Q4HRS PRN 10/12/20 11:45 Amino Acids/ Glycerin/ Electrolytes 1,000 ml @ 80 mls/hr [id number] 10/14/20 14:00 10/15/20 09:08 80 MLS/HR Ceftriaxone Sodium (Rocephin) 1 gm Q24H 10/12/20 09:00 10/12/20 11:48 DC 10/12/20 08:21 1 GM Dextrose/Sodium Chloride 1,000 ml @ 75 mls/hr [id number] 10/12/20 17:45 10/13/20 07:57 DC 10/13/20 03:07 75 MLS/HR Docusate Sodium (Colace) 100 mg PRN BID PRN 10/12/20 11:45 Famotidine (Pepcid Vial) 20 mg DAILY 10/12/20 14:00 10/15/20 09:09 20 MG Fosphenytoin Sodium (Cerebyx) 100 mg Q8HRS 10/14/20 22:00 10/15/20 05:45 100 MG Guaifenesin (Robitussin) 200 mg PRN Q4HRS PRN 10/12/20 11:45 Heparin Sodium (Porcine) (Heparin Sodium) 5,000 unit Q8HRS 10/12/20 14:00 10/15/20 05:46 5,000 UNIT Lactobacillus Rhamnosus (Culturelle) 1 cap BID 10/13/20 21:00 Magnesium Sulfate 50 ml @ 25 mls/hr PRN DAILY PRN 10/13/20 08:00 Morphine Sulfate (Morphine Sulfate) 2 mg PRN Q2HR PRN 10/11/20 21:00 10/12/20 20:59 DC Norepinephrine Bitartrate 8 mg/ Dextrose 258 ml @ 16.157 mls/ hr CONT PRN 10/12/20 20:00 10/14/20 20:54 DC 10/13/20 12:36 10.1 MLS/HR Ondansetron HCl (Zofran) 4 mg PRN Q8HRS PRN 10/11/20 21:00 10/12/20 20:59 DC Phenytoin Sodium (Dilantin) 100 mg 1X ONCE 10/11/20 21:00 10/11/20 21:01 DC Piperacillin Sod/ Tazobactam Sod 2.25 gm/Sodium Chloride 50 ml @ 100 mls/hr Q6HRS 10/12/20 12:00 10/15/20 05:45 100 MLS/HR Potassium Chloride 40 meq/ Sodium Chloride 1,020 ml @ 100 mls/hr [id number] 10/13/20 09:00 10/14/20 13:47 DC 10/14/20 13:18 100 MLS/HR Potassium Phosphate 15 mmol/ Sodium Chloride 255 ml @ 127.5 mls/ hr Q2H 10/13/20 09:00 10/13/20 12:59 DC 10/13/20 12:22 127.5 MLS/HR Sodium Chloride 500 ml @ 0 mls/hr QID PRN 10/13/20 08:00 Sodium Chloride (Normal Saline Flush) 3 ml QSHIFT PRN 10/12/20 11:45 Lab Laboratory Tests Test 10/15/20 04:00 10/15/20 12:25 White Blood Count 5.1 x10^3/uL (4.0-11.0) Red Blood Count 3.62 x10^6/uL (3.50-5.40) Hemoglobin 10.8 g/dL (12.0-15.5) Hematocrit 33.2 % (36.0-47.0) Mean Corpuscular Volume 92 fL (79-100) Mean Corpuscular Hemoglobin 30 pg (25-35) Mean Corpuscular Hemoglobin Concent 33 g/dL (31-37) Red Cell Distribution Width 13.7 % (11.5-14.5) Platelet Count 128 x10^3/uL (140-400) Neutrophils (%) (Auto) 50 % (31-73) Lymphocytes (%) (Auto) 31 % (24-48) Monocytes (%) (Auto) 12 % (0-9) Eosinophils (%) (Auto) 8 % (0-3) Basophils (%) (Auto) 0 % (0-3) Neutrophils # (Auto) 2.5 x10^3/uL (1.8-7.7) Lymphocytes # (Auto) 1.6 x10^3/uL (1.0-4.8) Monocytes # (Auto) 0.6 x10^3/uL (0.0-1.1) Eosinophils # (Auto) 0.4 x10^3/uL (0.0-0.7) Basophils # (Auto) 0.0 x10^3/uL (0.0-0.2) Sodium Level 151 mmol/L (136-145) Potassium Level 3.9 mmol/L (3.5-5.1) 3.9 mmol/L (3.5-5.1) Chloride Level 116 mmol/L (98-107) Carbon Dioxide Level 27 mmol/L (21-32) Anion Gap 8 (6-14) Blood Urea Nitrogen 17 mg/dL (7-20) Creatinine 0.9 mg/dL (0.6-1.0) Estimated GFR (Cockcroft-Gault) 63.4 BUN/Creatinine Ratio 19 (6-20) Glucose Level 93 mg/dL (70-99) Calcium Level 8.1 mg/dL (8.5-10.1) Magnesium Level 1.9 mg/dL (1.8-2.4) Total Bilirubin 0.4 mg/dL (0.2-1.0) Aspartate Amino Transf (AST/SGOT) 20 U/L (15-37) Alanine Aminotransferase (ALT/SGPT) 20 U/L (14-59) Alkaline Phosphatase 102 U/L (46-116) Total Protein 5.9 g/dL (6.4-8.2) Albumin 2.7 g/dL (3.4-5.0) Albumin/Globulin Ratio 0.8 (1.0-1.7) Results All relevant outside records, renal labs, imaging studies, telemetry/EKG's were reviewed. Justicifation of Admission Dx: Justifications for Admission: Justification of Admission Dx: N/A YOMAIRA AGARWAL MD Oct 15, 2020 14:39
[2020-10-15 15:00] VITALS: BP 97/64
--- NOTE | 2020-10-15 18:25 | NUR ---
I spoke to patients daughter and DPSABRINA Luu. Home phone number is [phone] her cell phone number is [phone]. She did confirm that her mother would want to be a DPOA and would refuse a PEG Tube. The daughter would like to be called and included in the discussion of hospice. No one from the facility had notified that her mother was in the hospital. She stated she will come visit her tomorrow. Pt resting comfortable in bed at this time. Will continue to monitor and follow plan of care.
[2020-10-15 19:35] VITALS: BP 131/84
[2020-10-15 23:05] VITALS: BP 118/60
[2020-10-16] MEDS: AMINO AC 3%/ELECTROLYTE/GLYCER 1,000 ML IV SCH ×2 (03:30→16:00)
[2020-10-16 03:35] VITALS: BP 120/78
[2020-10-16] MEDS: PIPERACILLIN/TAZOBACTAM 2.25 GM in IV NORMAL SALINE 50ML 50 ML IV SCH ×3 (06:00→18:00)
[2020-10-16] MEDS: FOSPHENYTOIN 100 MG/2 ML VIAL. IV SCH ×3 (06:00→20:39)
[2020-10-16] MEDS: HEPARIN for SUB-Q USE 5,000 UNIT/ML VIAL. SQ SCH ×3 (06:37→20:39)
[2020-10-16 07:00] VITALS: BP 113/83
[2020-10-16] MEDS: FAMOTIDINE 20 MG/2 ML VIAL IVP SCH (09:00)
[2020-10-16] MEDS: LACTOBACILLUS RHAMNOSUS GG 1 CAPSULE. PO SCH ×2 (09:00→20:39)
--- NOTE | 2020-10-16 10:05 | PDOC ---
DATE OF SERVICE DATE: 10/16/20 TIME: 10:05 SUBJECTIVE ROS Patient refusing to eat or drink fluids OBJECTIVE Vital Signs Vital Signs Date Time Temp Pulse Resp B/P (MAP) Pulse Ox O2 Delivery O2 Flow Rate FiO2 10/16/20 07:00 98.7 99 20 113/83 (93) 97 Room Air 98.7 I & 0 Intake and Output 10/16/20 07:00 Intake Total 238 ml Output Total 375 ml Balance -137 ml Intake Oral 238 ml Output Urine Total 375 ml Stool Total 0 ml PHYSICAL EXAM Physical Exam Gen NAD HEEN OM dry, On RA Neck Supple Lungs CTA , Non labored CV RRR Abd soft , NR Skin No Rash Ext No edema, Cyanosis No noyola DIAGNOSIS/ASSESSMENT Assessment & Plan MILVIA suspect Pre renal/Dehydration/Poor PO intake, per [facility] me list- Lisinopril and Aldactone , Resolved HyperNatremia - Pt refusing PO intake , continue IV Hypotonic fluid UTI 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 Discussion with family regarding transfer to hospice per RN COMMENT/RELEVANT DATA Meds Current Medications Medications (Trade) Dose Ordered Sig/Khoi Start Time Stop Time Status Last Admin Dose Admin Acetaminophen (Tylenol Supp) 650 mg PRN Q4HRS PRN 10/12/20 11:45 Albumin Human 250 ml @ 62.5 mls/hr Q6HRS 10/12/20 14:00 10/13/20 12:39 DC 10/13/20 12:37 62.5 MLS/HR Albuterol Sulfate (Ventolin Neb Soln) 2.5 mg PRN Q4HRS PRN 10/12/20 11:45 Amino Acids/ Glycerin/ Electrolytes 1,000 ml @ 80 mls/hr [id number] 10/14/20 14:00 10/15/20 09:08 80 MLS/HR Ceftriaxone Sodium (Rocephin) 1 gm Q24H 10/12/20 09:00 10/12/20 11:48 DC 10/12/20 08:21 1 GM Dextrose/Sodium Chloride 1,000 ml @ 75 mls/hr [id number] 10/12/20 17:45 10/13/20 07:57 DC 10/13/20 03:07 75 MLS/HR Docusate Sodium (Colace) 100 mg PRN BID PRN 10/12/20 11:45 Famotidine (Pepcid Vial) 20 mg DAILY 10/12/20 14:00 10/15/20 09:09 20 MG Fosphenytoin Sodium (Cerebyx) 100 mg Q8HRS 10/14/20 22:00 10/15/20 05:45 100 MG Guaifenesin (Robitussin) 200 mg PRN Q4HRS PRN 10/12/20 11:45 Heparin Sodium (Porcine) (Heparin Sodium) 5,000 unit Q8HRS 10/12/20 14:00 10/16/20 06:37 5,000 UNIT Lactobacillus Rhamnosus (Culturelle) 1 cap BID 10/13/20 21:00 Magnesium Sulfate 50 ml @ 25 mls/hr PRN DAILY PRN 10/13/20 08:00 Morphine Sulfate (Morphine Sulfate) 2 mg PRN Q2HR PRN 10/11/20 21:00 10/12/20 20:59 DC Norepinephrine Bitartrate 8 mg/ Dextrose 258 ml @ 16.157 mls/ hr CONT PRN 10/12/20 20:00 10/14/20 20:54 DC 10/13/20 12:36 10.1 MLS/HR Ondansetron HCl (Zofran) 4 mg PRN Q8HRS PRN 10/11/20 21:00 10/12/20 20:59 DC Phenytoin Sodium (Dilantin) 100 mg 1X ONCE 10/11/20 21:00 10/11/20 21:01 DC Piperacillin Sod/ Tazobactam Sod 2.25 gm/Sodium Chloride 50 ml @ 100 mls/hr Q6HRS 10/12/20 12:00 10/15/20 05:45 100 MLS/HR Potassium Chloride 40 meq/ Sodium Chloride 1,020 ml @ 100 mls/hr [id number] 10/13/20 09:00 10/14/20 13:47 DC 10/14/20 13:18 100 MLS/HR Potassium Phosphate 15 mmol/ Sodium Chloride 255 ml @ 127.5 mls/ hr Q2H 10/13/20 09:00 10/13/20 12:59 DC 10/13/20 12:22 127.5 MLS/HR Sodium Chloride 500 ml @ 0 mls/hr QID PRN 10/13/20 08:00 Sodium Chloride (Normal Saline Flush) 3 ml QSHIFT PRN 10/12/20 11:45 Lab Laboratory Tests Test 10/15/20 12:25 10/16/20 07:55 Potassium Level 3.9 mmol/L (3.5-5.1) Magnesium Level 2.1 mg/dL (1.8-2.4) Results All relevant outside records, renal labs, imaging studies, telemetry/EKG's were reviewed. Justicifation of Admission Dx: Justifications for Admission: Justification of Admission Dx: N/A EZEKIEL HUERTA MD Oct 16, 2020 10:05
--- NOTE | 2020-10-16 10:11 | PDOC ---
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 Hypernatremia and acute kidney injury, apparently due to her refusal to eat Plan Note plans for hospice Treat medical diseases Phenytoin on hold, patient does not want IV replaced, seizures were characterized as nonepileptic, probably does not need Dilantin anyway, a little worrisome regarding abrupt withdrawal, but should be okay Subjective None Objective Vital Signs Date Time Temp Pulse Resp B/P (MAP) Pulse Ox O2 Delivery O2 Flow Rate FiO2 10/16/20 07:00 98.7 99 20 113/83 (93) 97 Room Air 98.7 Intake and Output 10/16/20 07:00 Intake Total 238 ml Output Total 375 ml Balance -137 ml Intake Oral 238 ml Output Urine Total 375 ml Stool Total 0 ml PHYSICAL EXAM Alert. Nods yes and no to questions, remains nonverbal, follows commands PERRL. EOMI. CN: Right visual field cut Muscle tone: Increased on right Muscle strength: 4/5 DTR: 2+ Plantar reflex: flexor Gait: not examined in bed. Sensory exam: no abnormal findings. No cerebellar signs elicited. Review of Relevant I have reviewed the following items crissy (where applicable) has been applied. Labs Laboratory Tests Test 10/14/20 12:25 10/15/20 04:00 10/15/20 12:25 10/16/20 07:55 Potassium Level 4.2 mmol/L (3.5-5.1) 3.9 mmol/L (3.5-5.1) 3.9 mmol/L (3.5-5.1) White Blood Count 5.1 x10^3/uL (4.0-11.0) Red Blood Count 3.62 x10^6/uL (3.50-5.40) Hemoglobin 10.8 g/dL (12.0-15.5) Hematocrit 33.2 % (36.0-47.0) Mean Corpuscular Volume 92 fL (79-100) Mean Corpuscular Hemoglobin 30 pg (25-35) Mean Corpuscular Hemoglobin Concent 33 g/dL (31-37) Red Cell Distribution Width 13.7 % (11.5-14.5) Platelet Count 128 x10^3/uL (140-400) Neutrophils (%) (Auto) 50 % (31-73) Lymphocytes (%) (Auto) 31 % (24-48) Monocytes (%) (Auto) 12 % (0-9) Eosinophils (%) (Auto) 8 % (0-3) Basophils (%) (Auto) 0 % (0-3) Neutrophils # (Auto) 2.5 x10^3/uL (1.8-7.7) Lymphocytes # (Auto) 1.6 x10^3/uL (1.0-4.8) Monocytes # (Auto) 0.6 x10^3/uL (0.0-1.1) Eosinophils # (Auto) 0.4 x10^3/uL (0.0-0.7) Basophils # (Auto) 0.0 x10^3/uL (0.0-0.2) Sodium Level 151 mmol/L (136-145) Chloride Level 116 mmol/L (98-107) Carbon Dioxide Level 27 mmol/L (21-32) Anion Gap 8 (6-14) Blood Urea Nitrogen 17 mg/dL (7-20) Creatinine 0.9 mg/dL (0.6-1.0) Estimated GFR (Cockcroft-Gault) 63.4 BUN/Creatinine Ratio 19 (6-20) Glucose Level 93 mg/dL (70-99) Calcium Level 8.1 mg/dL (8.5-10.1) Magnesium Level 1.9 mg/dL (1.8-2.4) 2.1 mg/dL (1.8-2.4) Total Bilirubin 0.4 mg/dL (0.2-1.0) Aspartate Amino Transf (AST/SGOT) 20 U/L (15-37) Alanine Aminotransferase (ALT/SGPT) 20 U/L (14-59) Alkaline Phosphatase 102 U/L (46-116) Total Protein 5.9 g/dL (6.4-8.2) Albumin 2.7 g/dL (3.4-5.0) Albumin/Globulin Ratio 0.8 (1.0-1.7) Laboratory Tests Test 10/15/20 12:25 10/16/20 07:55 Potassium Level 3.9 mmol/L (3.5-5.1) Magnesium Level 2.1 mg/dL (1.8-2.4) Microbiology 10/12/20 Urine Culture - Final, Complete 10/12/20 Blood Culture - Preliminary, Resulted NO GROWTH AFTER 3 DAYS Medications Current Medications Sodium Chloride 1,000 ml @ 1,000 mls/hr 1X ONCE IV Last administered on 10/11/20at 19:45; Start 10/11/20 at 19:45; Stop 10/11/20 at 20:46; Status DC Sodium Chloride 1,000 ml @ 100 mls/hr 1X ONCE IV Last administered on 10/11/20at 02:33; Start 10/11/20 at 21:00; Stop 10/12/20 at 17:35; Status DC Ondansetron HCl (Zofran) 4 mg PRN Q8HRS PRN IV NAUSEA/VOMITING 1ST CHOICE; Start 10/11/20 at 21:00; Stop 10/12/20 at 20:59; Status DC Morphine Sulfate (Morphine Sulfate) 2 mg PRN Q2HR PRN IV SEVERE PAIN 7-10; Start 10/11/20 at 21:00; Stop 10/12/20 at 20:59; Status DC Phenytoin Sodium (Dilantin) 100 mg 1X ONCE PO ; Start 10/11/20 at 21:00; Stop 10/11/20 at 21:01; Status DC Fosphenytoin Sodium (Cerebyx) 167 mg Q8HRS IV Last administered on 10/14/20at 15:21; Start 10/12/20 at 06:00; Stop 10/14/20 at 20:56; Status DC Dextrose/Sodium Chloride 1,000 ml @ 75 mls/hr [id number] IV Last administered on 10/12/20at 08:21; Start 10/12/20 at 08:00; Stop 10/12/20 at 17:35; Status DC Ceftriaxone Sodium (Rocephin) 1 gm Q24H IVP Last administered on 10/12/20at 08:21; Start 10/12/20 at 09:00; Stop 10/12/20 at 11:48; Status DC Sodium Chloride (Normal Saline Flush) 3 ml QSHIFT PRN IV AFTER MEDS AND BLOOD DRAWS; Start 10/12/20 at 11:45 Acetaminophen (Tylenol Supp) 650 mg PRN Q4HRS PRN NV TEMP OVER 100.4F OR MILD PAIN; Start 10/12/20 at 11:45 Docusate Sodium (Colace) 100 mg PRN BID PRN PO HARD STOOLS; Start 10/12/20 at 11:45 Albuterol Sulfate (Ventolin Neb Soln) 2.5 mg PRN Q4HRS PRN NEB SHORTNESS OF BREATH; Start 10/12/20 at 11:45 Guaifenesin (Robitussin) 200 mg PRN Q4HRS PRN PO COUGH; Start 10/12/20 at 11:45 Piperacillin Sod/ Tazobactam Sod 2.25 gm/Sodium Chloride 50 ml @ 100 mls/hr Q6HRS IV Last administered on 10/15/20 05:45; Start 10/12/20 at 12:00 Heparin Sodium (Porcine) (Heparin Sodium) 5,000 unit Q8HRS SQ Last administered on 10/16/20 06:37; Start 10/12/20 at 14:00 Famotidine (Pepcid Vial) 20 mg DAILY IVP Last administered on 10/15/20 09:09; Start 10/12/20 at 14:00 Albumin Human 250 ml @ 62.5 mls/hr Q6HRS IV Last administered on 10/13/20at 12:37; Start 10/12/20 at 14:00; Stop 10/13/20 at 12:39; Status DC Dextrose/Sodium Chloride 1,000 ml @ 75 mls/hr [id number] IV Last administered on 10/13/20 03:07; Start 10/12/20 at 17:45; Stop 10/13/20 at 07:57; Status DC Norepinephrine Bitartrate 8 mg/ Dextrose 258 ml @ 16.157 mls/ hr CONT PRN IV PER PROTOCOL Last administered on 10/13/20 12:36; Start 10/12/20 at 20:00; Stop 10/14/20 at 20:54; Status DC Potassium Chloride 40 meq/ Sodium Chloride 1,020 ml @ 100 mls/hr [id number] IV Last administered on 10/14/20at 13:18; Start 10/13/20 at 09:00; Stop 10/14/20 at 13:47; Status DC Magnesium Sulfate 50 ml @ 25 mls/hr PRN DAILY PRN IV for Mag < 1.7 on am labs; Start 10/13/20 at 08:00 Sodium Chloride 500 ml @ 0 mls/hr QID PRN IV MAP < 65 ; Start 10/13/20 at 08:00 Potassium Phosphate 15 mmol/ Sodium Chloride 255 ml @ 127.5 mls/ hr Q2H IV Last administered on 10/13/20at 12:22; Start 10/13/20 at 09:00; Stop 10/13/20 at 12:59; Status DC Lactobacillus Rhamnosus (Culturelle) 1 cap BID PO ; Start 10/13/20 at 21:00 Amino Acids/ Glycerin/ Electrolytes 1,000 ml @ 80 mls/hr [id number] IV Last administered on 10/15/20at 09:08; Start 10/14/20 at 14:00 Fosphenytoin Sodium (Cerebyx) 100 mg Q8HRS IV Last administered on 10/15/20at 05:45; Start 10/14/20 at 22:00 Active Scripts Active Reported Vitamin D3-Aloe 1,000 Unit Tab (Ca Cmb 1/Vit D3/B-6/Fa/B12/Av) 1 Each Tablet 1 Each PO DAILY Vitamin C (Ascorbic Acid) 500 Mg Capsule.er 500 Mg PO DAILY Spironolactone 25 Mg Tablet 25 Mg PO DAILY Selsun Blue (Salicylic Acid) 325 Ml Shampoo 7 Oz TP ,FRI Lisinopril 10 Mg Tablet 10 Mg PO DAILY Linzess (Linaclotide) 290 Mcg Capsule 72 Mcg PO DAILY07 Docusate Sodium 100 Mg Capsule 1 Cap PO DAILY 30 Days Dilantin (Phenytoin Sodium Extended) 100 Mg Capsule 200 Mg PO BID Dilantin (Phenytoin Sodium Extended) 100 Mg Capsule 1 Cap PO DAILY16 Atenolol 50 Mg Tablet 50 Mg PO DAILY Children's Aspirin (Aspirin) 81 Mg Tab.chew 81 Mg PO DAILY PRN Acetaminophen 500 Mg Tablet 500 Mg PO Q4HRS PRN Vitals/I & O Vital Sign - Last 24 Hours 10/15/20 10/15/20 10/15/20 10/15/20 11:00 15:00 19:35 19:40 Temp 98.7 98.6 98.1 98.7 98.6 98.1 Pulse 99 94 105 Resp 16 16 18 B/P (MAP) 96/65 (75) 97/64 (75) 131/84 (100) Pulse Ox 100 100 97 O2 Delivery Room Air Room Air Room Air Room Air 10/15/20 10/15/20 10/16/20 10/16/20 20:22 23:05 03:35 07:00 Temp 98.0 97.7 98.7 98.0 97.7 98.7 Pulse 105 102 99 Resp 18 20 20 B/P (MAP) 118/60 (79) 120/78 (92) 113/83 (93) Pulse Ox 97 96 96 97 O2 Delivery Room Air Room Air Room Air Intake and Output 10/15/20 10/15/20 10/16/20 15:00 23:00 07:00 Intake Total 238 ml Output Total 75 ml 300 ml Balance 163 ml -300 ml Justicifation of Admission Dx: Justifications for Admission: Justification of Admission Dx: N/A DANNA LOPEZ MD Oct 16, 2020 10:10
--- NOTE | 2020-10-16 10:57 | PDOC ---
Date of Service: DATE: 10/16/20 TIME: 10:52 Subjective: Subjective: indicates she does not want a feeing tube, that she ate breakfast, and has no pain. Objective: Objective: D/w nurse - refuses to eat/drink, refuses IV, etc. Family to come see re: Hospice. Reviewed nursing note from weekend: I spoke to patients daughter and MARY Luu. She did confirm that her mother would want to be a DNR and would refuse a PEG Tube. The daughter would like to be called and included in the discussion of hospice. No one from the facility had notified that her mother was in the hospital. She stated she will come visit her tomorrow. 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 Baseline diet at facility is regular w/nectar thick liquids. Pt self-limited number of trials during eval. Thin liquids NT. Reviewed chart. ER notes indicated EMS stated pt taking some meds during day but nights unsuccessful. IMPRESSIONS: Pt refusal to take po does not appear r/t oropharyngeal dysphagia or inability to swallow. Pt is able to produce a safe and efficient swallow for rec'd diet. Although trials were limited, swallow appears safe to resume baseline diet. Pt was on nectar thick liquid in her facility but not avail at acute level. Would utilize honey thick liquids and pt and can resume nectar upon return. Suspect communication is at baseline given hx. RECOMMENDATIONS: Initiate diet of dysphagia III w/honey thick liquids pending ok by MDs; w/u and GI consult pending. CORNELL RN Ever. RN to enter diet as indicated by medical w/u. No additional DIE CASTING SUPERVISOR f/u indicated as refusal of po does not appear r/t oropharyngeal dysphagia. PE: GEN: NAD - breakfast tray across room - untouched LUNGS: CTAB HEART: RRR ABD: Nsoft, non-tender NEURO/PSYCH: A & O, does not verbalize, shakes head yes/no A/P: Refusing to eat H/o CVA, ?seizures Hypernatremia -- Possible Hospice plans - DPOA indicates she and pt do not desire PEG placement. Justicifation of Admission Dx: Justifications for Admission: Justification of Admission Dx: N/A JAZMYN LNAG Oct 16, 2020 10:57
[2020-10-16 11:00] VITALS: BP 103/76
--- NOTE | 2020-10-16 11:25 | CARD ---
MR#: [id number] Date of Study: 10/12/2020 Ordering Physician: GINO MOYER, Referring Physician: GINO MOYER Tech: Valerie Nguyễn [facility] APPROVED REPORT EXAM: Two-dimensional and M-mode echocardiogram with Doppler and color Doppler. Other Information Quality : Technically LimitedHR: 84bpm Rhythm : NSR INDICATION Hypertension/HCVD RISK FACTORS Hypertension Obesity 2D DIMENSIONS Left Atrium(2D)2.2 (1.6-4.0cm)IVSd1.2 (0.7-1.1cm) LVDd3.3 (3.9-5.9cm)LVOT Diameter2.1 (1.8-2.4cm) PWd1.2 (0.7-1.1cm)LVDs1.8 (2.5-4.0cm) FS (%) 47.0 %SV35.3 ml LEFT VENTRICLE The left ventricle is normal size. There is borderline to mild concentric left ventricular hypertroph y. The left ventricular systolic function iappears normal and the ejection fraction is within normal range. Estimated ejection fraction 55-60%. There is normal LV segmental wall motion. RIGHT VENTRICLE The right ventricle is normal size. There is normal right ventricular wall thickness. The right ventr icular systolic function is normal. ATRIA The left atrium size is normal. The right atrium size is normal. The interatrial septum is intact wit h no evidence for an atrial septal defect or patent foramen ovale as noted on 2-D or Doppler imaging. AORTIC VALVE The aortic valve is normal in structure and function. Doppler and Color Flow revealed no significant aortic regurgitation. There is no significant aortic valvular stenosis. MITRAL VALVE The mitral valve is normal in structure and function. There is no evidence of mitral valve prolapse. There is no mitral valve stenosis. Unable to evaluate due to limited imaging due to patient resisting imaging. TRICUSPID VALVE The tricuspid valve is normal in structure and function. Doppler and color-flow analysis was not perf ormed. PULMONIC VALVE The pulmonary valve is normal in structure and function. Doppler and Color Flow revealed no pulmonic valvular regurgitation. GREAT VESSELS The aortic root is normal in size. Due to poor image quality, the IVC could not be assessed. PERICARDIAL EFFUSION There is no evidence of significant pericardial effusion. Critical Notification Critical Value: No <Conclusion> The left ventricle is normal size. The left ventricular systolic function appears normal and the ejection fraction is within normal rang e. Estimated ejection fraction 55-60%. There is borderline to mild concentric left ventricular hypertrophy. Doppler and Color Flow revealed no significant aortic regurgitation. There is no significant aortic valvular stenosis. MR, unable to evaluate due to limited imaging due to patient resisting imaging. There is no evidence of significant pericardial effusion. Signed by : Erik Redmond MD Electronically Approved : 10/16/2020 11:25:03
--- NOTE | 2020-10-16 11:55 | PDOC ---
[employer] PROGRESS NOTE Date of Service DOS: DATE: 10/16/20 TIME: 11:47 Chief Complaint Chief Complaint VTE Prophylaxis Ordered VTE Prophylaxis Devices: Yes VTE Pharmacological Prophylaxi: Yes Assessment/Plan Assessment/Plan impression 1. Severe electrolyte imbalance with hypernatremia, , hyperchloremia volume depleted 2. Altered mental status ,Small focus of hyperdensity noted on described above nonspecific may represent calcification versus punctate hemorrhage Hypodensity in the aneta undoubtedly represents calcification 3. morbid obesity 4. remote cva 5. hx dysphagia 6. HYPOTENSION, volume depleted 7. HYPOKALEMIA 8. MILVIA // Increased bilateral renal cortical echogenicity, may indicate medical renal disease. Hypodensity in the aneta undoubtedly represents calcification plan 1. admit ICU 2. Consult nephrology 3. consult neurology 4. HYPOTONIC IV FLUID SUPPORT , CONTINUE 5. DVT prophylaxis 6. PT/OT/ST 7. GI CONSULT 8. REPLETE LYTES 10/14 does not want to eat or drink, May want palliative care, will address 1 agrees with hospice consult, intake, visit for palliative care, refusing iv restart 10/16: Patient currently refusing to eat. Patient and DPOA at this time PEG tube placement. Will discuss hospice with DPOA prior to return to long-term care facility. Discussed with RN and social work. History of Present Illness History of Present Illness Identification/Chief Complaint Chief Complaint altered mental status, HYPOTENSION, DEHYDRATION History of Present Illness History of Present Illness longterm patient seen in ER has been declined to eat or take her medications for approximately 1 week. poor historian and unable to provide any significant history. No symptoms at presentation per ER note . Staff the longterm believes she has some change from her baseline 60 year old with altered mental status and treated behavior. symptoms at this time. Staff the longterm do believe she has some change from her baseline but the timeline is not specific. No acute changes today and no deviation from today. No reported fever, chills, chest pain or shortness of breath. sodium noted to be 161 in ER Past Medical History Past Medical History CENTRAL NERVOUS SYSTEM: Seizure (? Nonepileptic) GI: Other (Dysphagia) Infectious disease: Other (COVID-19 in February 2020) Past Surgical History Past Surgical History: No pertinent history Family History Family History: No pertinent hx Social History Social History [facility] resident Cardiovascular: HTN, Hyperlipidemia CENTRAL NERVOUS SYSTEM: Dementia Heme/Onc: No pertinent hx Musculoskeletal: Osteoarthritis Dermatology: No pertinent hx Family History Family History: Hypertension Social History Smoke: No ALCOHOL: none Drugs: None Vitals/I&O Vitals/I&O: Vital Signs Date Time Temp Pulse Resp B/P (MAP) Pulse Ox O2 Delivery O2 Flow Rate FiO2 10/16/20 11:00 97.9 96 18 103/76 (85) 96 Room Air 97.9 I & O 10/15/20 10/15/20 10/16/20 15:00 23:00 07:00 Intake Total 238 ml Output Total 75 ml 300 ml Balance 163 ml -300 ml Physical Exam General: mild distress Heart: Regular rate, Normal S1 Lungs: Clear Abdomen: Normal bowel sounds Extremities: No cyanosis, No edema Skin: No breakdown Labs Labs: Laboratory Tests Test 10/15/20 12:25 10/16/20 07:55 Potassium Level 3.9 mmol/L (3.5-5.1) Magnesium Level 2.1 mg/dL (1.8-2.4) Assessment and Plan Assessmemt and Plan Problems Medical Problems: (1) Acute renal failure Status: Acute (2) Hypernatremia Status: Acute Comment Review of Relevant I have reviewed the following items crissy (where applicable) has been applied. Justifications for Admission General Conditions Poss tachycardia?: Yes Justification for admission: Patient has tachycardia (> 100 beats per minute) which is not readily corrected by appropriate treatment within 12 to 24 hours. SEVERE DEHYDRATION, MILVIA Other Justification HERIBERTO TORO MD Oct 16, 2020 11:55
--- NOTE | 2020-10-16 12:02 | NUR ---
SS following up with discharge planning. SS reviewed pt chart and discussed with pt RN. Pt is LTC resident from [facility], ; fax [phone]. Per RN, pt is refusing all treatments. Per RN, pt's family wanting to discuss hospice services. SS was provided with contact information for pt's daughter, Bell. Home phone number is [phone] her cell phone number is [phone]. SS attempted to contact Bell and left voicemail requesting return call. SS will continue to follow for discharge planning.
[2020-10-16 15:00] VITALS: BP 111/72
[2020-10-16] MEDS ORDERED: PHENOL ORAL SPRAY 177ML BOTTLE. PO PRN (16:45)
[2020-10-16 19:35] VITALS: BP 126/83
[2020-10-16 22:52] VITALS: BP 130/84
[2020-10-17 03:08] VITALS: BP 124/79
[2020-10-17] MEDS: AMINO AC 3%/ELECTROLYTE/GLYCER 1,000 ML IV SCH (04:30)
[2020-10-17] MEDS: FOSPHENYTOIN 100 MG/2 ML VIAL. IV SCH ×2 (05:24→14:00)
[2020-10-17] MEDS: PIPERACILLIN/TAZOBACTAM 2.25 GM in IV NORMAL SALINE 50ML 50 ML IV SCH ×3 (05:24→12:00)
[2020-10-17] MEDS: HEPARIN for SUB-Q USE 5,000 UNIT/ML VIAL. SQ SCH (05:54)
[2020-10-17 07:00] VITALS: BP 144/92
--- NOTE | 2020-10-17 08:39 | PDOC ---
[employer] PROGRESS NOTE Date of Service DOS: DATE: 10/17/20 TIME: 08:38 Chief Complaint Chief Complaint VTE Prophylaxis Ordered VTE Prophylaxis Devices: Yes VTE Pharmacological Prophylaxi: Yes Assessment/Plan Assessment/Plan impression 1. Severe electrolyte imbalance with hypernatremia, , hyperchloremia volume depleted 2. Altered mental status ,Small focus of hyperdensity noted on described above nonspecific may represent calcification versus punctate hemorrhage Hypodensity in the aneta undoubtedly represents calcification 3. morbid obesity 4. remote cva 5. hx dysphagia 6. HYPOTENSION, volume depleted 7. HYPOKALEMIA 8. MILVIA // Increased bilateral renal cortical echogenicity, may indicate medical renal disease. Hypodensity in the aneta undoubtedly represents calcification plan 1. admit ICU 2. Consult nephrology 3. consult neurology 4. HYPOTONIC IV FLUID SUPPORT , CONTINUE 5. DVT prophylaxis 6. PT/OT/ST 7. GI CONSULT 8. REPLETE LYTES 10/14 does not want to eat or drink, May want palliative care, will address 10/15 agrees with hospice consult, intake, visit for palliative care, refusing iv restart 10/16: Patient currently refusing to eat. Patient and DPOA at this time PEG tube placement. Will discuss hospice with DPOA prior to return to long-term care facility. Discussed with RN and social work. 10/17: Patient seen and evaluated. No acute events overnight. She continues to refuse treatments. She may discharge to her long-term care facility to discuss hospice services as outpatient. Greater than 30 minutes was spent managing discharge this patient. History of Present Illness History of Present Illness Identification/Chief Complaint Chief Complaint altered mental status, HYPOTENSION, DEHYDRATION History of Present Illness History of Present Illness half-way patient seen in ER has been declined to eat or take her medications for approximately 1 week. poor historian and unable to provide any significant history. No symptoms at presentation per ER note . Staff the half-way believes she has some change from her baseline 60 year old with altered mental status and treated behavior. symptoms at this time. Staff the half-way do believe she has some change from her baseline but the timeline is not specific. No acute changes today and no deviation from today. No reported fever, chills, chest pain or shortness of breath. sodium noted to be 161 in ER Past Medical History Past Medical History CENTRAL NERVOUS SYSTEM: Seizure (? Nonepileptic) GI: Other (Dysphagia) Infectious disease: Other (COVID-19 in February 2020) Past Surgical History Past Surgical History: No pertinent history Family History Family History: No pertinent hx Social History Social History [facility] resident Cardiovascular: HTN, Hyperlipidemia CENTRAL NERVOUS SYSTEM: Dementia Heme/Onc: No pertinent hx Musculoskeletal: Osteoarthritis Dermatology: No pertinent hx Family History Family History: Hypertension Social History Smoke: No ALCOHOL: none Drugs: None Vitals/I&O Vitals/I&O: Vital Signs Date Time Temp Pulse Resp B/P (MAP) Pulse Ox O2 Delivery O2 Flow Rate FiO2 10/17/20 07:00 97.5 95 18 144/92 (109) 97 Room Air 97.5 I & O 10/16/20 10/16/20 10/17/20 14:59 22:59 06:59 Intake Total 0 ml 0 ml Output Total 450 ml Balance 0 ml -450 ml Physical Exam General: No acute distress Heart: Regular rate, Normal S1 Lungs: Clear Abdomen: Normal bowel sounds Extremities: No cyanosis, No edema Skin: No breakdown Assessment and Plan Assessmemt and Plan Problems Medical Problems: (1) Acute renal failure Status: Acute (2) Hypernatremia Status: Acute Comment Review of Relevant I have reviewed the following items crissy (where applicable) has been applied. Justifications for Admission General Conditions Poss tachycardia?: Yes Justification for admission: Patient has tachycardia (> 100 beats per minute) which is not readily corrected by appropriate treatment within 12 to 24 hours. SEVERE DEHYDRATION, MILVIA Other Justification HERIBERTO TORO MD Oct 17, 2020 08:39
[2020-10-17] MEDS: LACTOBACILLUS RHAMNOSUS GG 1 CAPSULE. PO SCH (09:00)
[2020-10-17] MEDS: FAMOTIDINE 20 MG/2 ML VIAL IVP SCH (09:00)
[2020-10-17 10:20] VITALS: BP 132/90
--- NOTE | 2020-10-17 10:26 | PDOC ---
Date of Service: DATE: 10/17/20 TIME: 10:24 Subjective: Subjective: Indicates she has had some apple juice. Denies pain. Again indicates does not want a PEG tube. Objective: Vital Signs: Vital Signs Date Time Temp Pulse Resp B/P (MAP) Pulse Ox O2 Delivery O2 Flow Rate FiO2 10/17/20 10:20 98.0 99 18 132/90 (104) 97 Room Air 98.0 Labs: BLOOD CULTURE Preliminary NO GROWTH AFTER 4 DAYS PE: GEN: NAD - holding apple juice - looks like about half consumed LUNGS: clear anteriorly HEART: RRR ABD: soft, non-tender NEURO/PSYCH: awake and alert, does not verbalize A/P: Refusing to eat H/o CVA, ?seizures Hypernatremia -- Taking some PO? Doesn't want PEG. Justicifation of Admission Dx: Justifications for Admission: Justification of Admission Dx: N/A JAZMYN LANG Oct 17, 2020 10:26
--- NOTE | 2020-10-17 11:19 | SNU/HH DC ---
DISCHARGE ORDERS DISCHARGE INFORMATION: DISCHARGE DATE: Oct 17, 2020 FINAL DIAGNOSIS Problems Medical Problems: (1) Acute renal failure Status: Acute (2) Hypernatremia Status: Acute CONDITION ON DISCHARGE: Stable CODE STATUS: Code Status: DNR/DNI CORRECTION: SNF STAY <30 DAYS: No HOSPICE: HOSPICE EVAL & TREAT: Yes POST DISCHARGE ORDERS: DIET AFTER DISCHARGE: Dysphagia diet TREATMENT/EQUIPMENT ORDERS: Speech Language Pathology For: Evaluation/Treatment (Dysphagia) DISCHARGE MEDICATIONS: Home Meds Reported Medications Ca Cmb 1/Vit D3/B-6/Fa/B12/Av (VITAMIN D3-ALOE 1,000 UNIT TAB) 1 Each Tablet, 1 EACH PO DAILY for supplement, TAB 10/12/20 Ascorbic Acid (VITAMIN C) 500 Mg Capsule.er, 500 MG PO DAILY for supplemental, CAP.SR 10/12/20 Spironolactone (SPIRONOLACTONE) 25 Mg Tablet, 25 MG PO DAILY for HTN, TAB 10/12/20 Salicylic Acid (Selsun Blue) 325 Ml Shampoo, 7 OZ TP Tu,Fri for rash, MISC 10/12/20 Lisinopril (LISINOPRIL) 10 Mg Tablet, 10 MG PO DAILY for FOR HYPERTENSION, #30 TAB 0 Refills 10/12/20 Linaclotide (LINZESS) 290 Mcg Capsule, 72 MCG PO DAILY07 for IRRITABLE BOWEL, CAP 10/12/20 Docusate Sodium (DOCUSATE SODIUM) 100 Mg Capsule, 1 CAP PO DAILY for constipation for 30 Days, #30 CAP 0 Refills 10/12/20 Phenytoin Sodium Extended (DILANTIN) 100 Mg Capsule, 200 MG PO BID for seizures, CAP 10/12/20 Phenytoin Sodium Extended (DILANTIN) 100 Mg Capsule, 1 CAP PO DAILY16 for seizures, #90 CAP 3 Refills 10/12/20 Atenolol (ATENOLOL) 50 Mg Tablet, 50 MG PO DAILY for HTN, TAB 10/12/20 Aspirin (Children's Aspirin) 81 Mg Tab.chew, 81 MG PO DAILY PRN for PX, TAB.CHEW 10/12/20 Acetaminophen (ACETAMINOPHEN) 500 Mg Tablet, 500 MG PO Q4HRS PRN for PAIN, TAB 10/12/20 HERIBERTO TORO MD Oct 17, 2020 11:19
--- NOTE | 2020-10-17 11:37 | PDOC3 ---
Discharge Summary Visit Information Date of Admission: Oct 12, 2020 Date of Discharge: Oct 17, 2020 Final Diagnosis Problems Medical Problems: (1) Acute renal failure Status: Acute (2) Hypernatremia Status: Acute Brief Hospital Course Allergies Allergies Coded Allergies Type Severity Reaction Last Updated Verified No Known Drug Allergies 10/11/20 No Vital Signs Vital Signs Date Time Temp Pulse Resp B/P (MAP) Pulse Ox O2 Delivery O2 Flow Rate FiO2 10/17/20 10:20 98.0 99 18 132/90 (104) 97 Room Air 98.0 Lab Results Laboratory Tests Test 10/15/20 12:25 10/16/20 07:55 10/17/20 10:10 Potassium Level 3.9 mmol/L (3.5-5.1) Magnesium Level 2.1 mg/dL (1.8-2.4) 1.7 mg/dL (1.8-2.4) Laboratory Tests Test 10/17/20 10:10 Magnesium Level 1.7 mg/dL (1.8-2.4) Brief Hospital Course Ms. He is a 60 old female who presented with MILVIA secondary to prerenal azotemia/dehydration, hyponatremia, UTI. Consultations placed to nephrology, GI, and neurology. Patient was treated with IV hydration with improvement. CT head was obtained on admission and repeated due to seizure activity. CT head showed persistent punctate hyperintense focus in the aneta, unchanged from prior study. Treated with IV fosphenytoin. She was refusing p.o. intake. After discussion with family regarding transfer to hospice, patient was recommended to discharge back to her long-term care facility with evaluation for inpatient hospice. Discharge Information Condition at Discharge: Stable Disposition/Orders: D/C to Another Facility Scheduled Ascorbic Acid (Vitamin C) 500 Mg Capsule.er, 500 MG PO DAILY for supplemental, (Reported) Entered as Reported by: ALLYN SERNA RN on 10/12/20212 Last Taken: Unknown Dose on Unknown Date & Time Last Action: New Order on 10/12/20212 by ALLYN SERNA RN Atenolol (Atenolol) 50 Mg Tablet, 50 MG PO DAILY for HTN, (Reported) Entered as Reported by: ALLYN SERNA RN on 10/12/20212 Last Taken: Unknown Dose on Unknown Date & Time Last Action: New Order on 10/12/20212 by ALLYN SERNA RN Ca Cmb 1/Vit D3/B-6/Fa/B12/Av (Vitamin D3-Aloe 1,000 Unit Tab) 1 Each Tablet, 1 EACH PO DAILY for supplement, (Reported) Entered as Reported by: ALLYN SERNA RN on 10/12/20212 Last Taken: Unknown Dose on Unknown Date & Time Last Action: New Order on 10/12/20212 by ALLYN SERNA RN Docusate Sodium (Docusate Sodium) 100 Mg Capsule, 1 CAP PO DAILY for constipation for 30 Days, #30 Ref 0 (Reported) Entered as Reported by: ALLYN SERNA RN on 10/12/20212 Last Taken: Unknown Dose on Unknown Date & Time Last Action: New Order on 10/12/20212 by ALLYN SERNA RN Linaclotide (Linzess) 290 Mcg Capsule, 72 MCG PO DAILY07 for IRRITABLE BOWEL, (Reported) Entered as Reported by: ALLYN SERNA RN on 10/12/20212 Last Taken: Unknown Dose on Unknown Date & Time Last Action: New Order on 10/12/20212 by ALLYN SERNA RN Lisinopril (Lisinopril) 10 Mg Tablet, 10 MG PO DAILY for FOR HYPERTENSION, #30 Ref 0 (Reported) Entered as Reported by: ALLYN SERNA RN on 10/12/20212 Last Taken: Unknown Dose on Unknown Date & Time Last Action: New Order on 10/12/20212 by ALLYN SERNA RN Phenytoin Sodium Extended (Dilantin) 100 Mg Capsule, 1 CAP PO DAILY16 for seizures, #90 Ref 3 (Reported) Entered as Reported by: ALLYN SERNA RN on 10/12/20212 Last Action: New Order on 10/12/20212 by ALLYN SERNA RN Phenytoin Sodium Extended (Dilantin) 100 Mg Capsule, 200 MG PO BID for seizures, (Reported) Entered as Reported by: ALLYN SERNA RN on 10/12/20212 Last Taken: Unknown Dose on Unknown Date & Time Last Action: New Order on 10/12/20212 by ALLYN SERNA RN Salicylic Acid (Selsun Blue) 325 Ml Shampoo, 7 OZ TP Tu,Fri for rash, (Reported) Entered as Reported by: ALLYN SERNA RN on 10/12/20212 Last Taken: Unknown Dose on Unknown Date & Time Last Action: New Order on 10/12/20212 by ALLYN SERNA RN Spironolactone (Spironolactone) 25 Mg Tablet, 25 MG PO DAILY for HTN, (Reported) Entered as Reported by: ALLYN SERNA RN on 10/12/20212 Last Taken: Unknown Dose on Unknown Date & Time Last Action: New Order on 10/12/20212 by ALLYN SERNA RN Scheduled PRN Acetaminophen (Acetaminophen) 500 Mg Tablet, 500 MG PO Q4HRS PRN for PAIN, (Reported) Entered as Reported by: ALLYN SERNA RN on 10/12/20212 Last Taken: Unknown Dose on Unknown Date & Time Last Action: New Order on 10/12/20212 by ALLYN SERNA RN Aspirin (Children's Aspirin) 81 Mg Tab.chew, 81 MG PO DAILY PRN for PX, (Reported) Entered as Reported by: ALLYN SERNA RN on 10/12/20212 Last Taken: Unknown Dose on Unknown Date & Time Last Action: New Order on 10/12/20212 by ALLYN SERNA RN Justicifation of Admission Dx: Justifications for Admission: Justification of Admission Dx: N/A HERIBERTO TORO MD Oct 17, 2020 11:37
--- NOTE | 2020-10-17 12:03 | PDOC ---
DATE OF SERVICE DATE: 10/17/20 TIME: 12:02 SUBJECTIVE ROS Patient refusing to eat or drink fluids , refused labs etc OBJECTIVE Vital Signs Vital Signs Date Time Temp Pulse Resp B/P (MAP) Pulse Ox O2 Delivery O2 Flow Rate FiO2 10/17/20 10:20 98.0 99 18 132/90 (104) 97 Room Air 98.0 I & 0 Intake and Output 10/17/20 07:00 Intake Total 0 ml Output Total 450 ml Balance -450 ml Intake Oral 0 ml Output Urine Total 450 ml PHYSICAL EXAM Physical Exam Gen NAD HEEN OM dry, On RA Neck Supple Lungs CTA , Non labored CV RRR Abd soft , NR Skin No Rash Ext No edema, Cyanosis No noyola DIAGNOSIS/ASSESSMENT Assessment & Plan MILVIA suspect Pre renal/Dehydration/Poor PO intake, per DC me list- Lisinopril and Aldactone , Resolved No recent labs 2/2 pts refusal HyperNatremia - Pt refusing PO intake , continue IV Hypotonic fluid UTI 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 Anticipating Dc soon COMMENT/RELEVANT DATA Meds Current Medications Medications (Trade) Dose Ordered Sig/Khoi Start Time Stop Time Status Last Admin Dose Admin Acetaminophen (Tylenol Supp) 650 mg PRN Q4HRS PRN 10/12/20 11:45 Albumin Human 250 ml @ 62.5 mls/hr Q6HRS 10/12/20 14:00 10/13/20 12:39 DC 10/13/20 12:37 62.5 MLS/HR Albuterol Sulfate (Ventolin Neb Soln) 2.5 mg PRN Q4HRS PRN 10/12/20 11:45 Amino Acids/ Glycerin/ Electrolytes 1,000 ml @ 80 mls/hr [id number] 10/14/20 14:00 10/15/20 09:08 80 MLS/HR Ceftriaxone Sodium (Rocephin) 1 gm Q24H 10/12/20 09:00 10/12/20 11:48 DC 10/12/20 08:21 1 GM Dextrose/Sodium Chloride 1,000 ml @ 75 mls/hr [id number] 10/12/20 17:45 10/13/20 07:57 DC 10/13/20 03:07 75 MLS/HR Docusate Sodium (Colace) 100 mg PRN BID PRN 10/12/20 11:45 Famotidine (Pepcid Vial) 20 mg DAILY 10/12/20 14:00 10/15/20 09:09 20 MG Fosphenytoin Sodium (Cerebyx) 100 mg Q8HRS 10/14/20 22:00 10/15/20 05:45 100 MG Guaifenesin (Robitussin) 200 mg PRN Q4HRS PRN 10/12/20 11:45 Heparin Sodium (Porcine) (Heparin Sodium) 5,000 unit Q8HRS 10/12/20 14:00 10/17/20 05:54 5,000 UNIT Lactobacillus Rhamnosus (Culturelle) 1 cap BID 10/13/20 21:00 Magnesium Sulfate 50 ml @ 25 mls/hr PRN DAILY PRN 10/13/20 08:00 Morphine Sulfate (Morphine Sulfate) 2 mg PRN Q2HR PRN 10/11/20 21:00 10/12/20 20:59 DC Norepinephrine Bitartrate 8 mg/ Dextrose 258 ml @ 16.157 mls/ hr CONT PRN 10/12/20 20:00 10/14/20 20:54 DC 10/13/20 12:36 10.1 MLS/HR Ondansetron HCl (Zofran) 4 mg PRN Q8HRS PRN 10/11/20 21:00 10/12/20 20:59 DC Phenol (Chloraseptic) 1 spray PRN Q2HR PRN 10/16/20 16:45 Phenytoin Sodium (Dilantin) 100 mg 1X ONCE 10/11/20 21:00 10/11/20 21:01 DC Piperacillin Sod/ Tazobactam Sod 2.25 gm/Sodium Chloride 50 ml @ 100 mls/hr Q6HRS 10/12/20 12:00 10/15/20 05:45 100 MLS/HR Potassium Chloride 40 meq/ Sodium Chloride 1,020 ml @ 100 mls/hr [id number] 10/13/20 09:00 10/14/20 13:47 DC 10/14/20 13:18 100 MLS/HR Potassium Phosphate 15 mmol/ Sodium Chloride 255 ml @ 127.5 mls/ hr Q2H 10/13/20 09:00 10/13/20 12:59 DC 10/13/20 12:22 127.5 MLS/HR Sodium Chloride 500 ml @ 0 mls/hr QID PRN 10/13/20 08:00 Sodium Chloride (Normal Saline Flush) 3 ml QSHIFT PRN 10/12/20 11:45 Lab Laboratory Tests Test 10/17/20 10:10 Magnesium Level 1.7 mg/dL (1.8-2.4) Results All relevant outside records, renal labs, imaging studies, telemetry/EKG's were reviewed. Justicifation of Admission Dx: Justifications for Admission: Justification of Admission Dx: N/A EZEKIEL HUERTA MD Oct 17, 2020 12:03
--- NOTE | 2020-10-17 12:56 | NUR ---
SS following up with discharge planning. SS reviewed pt chart and discussed with pt RN. Pt is currently on room air. Discharge orders for return to [facility], ; fax [phone], received. SS phoned and faxed clinical and discharge orders to [facility]. Pt needing stretcher transport. [facility] scheduling transport and will notify SS of time. Pt, pt's daughter, and pt's RN notified.
[2020-10-17 14:23] VITALS: BP 141/93
--- NOTE | 2020-10-17 15:36 | NUR ---
SS following up with discharge planning. Transportation scheduled for 1600. Pt's RN and pt's daughter notified.
--- NOTE | 2020-10-17 16:20 | NUR ---
Discharge Note: RANI WYLIE Discharge instructions and discharge home medications reviewed with Family Member and a copy given. All questions have been answered and understanding verbalized. Belongings taken with patient upon discharge. Patient discharged to [facility] with Self via Stretcher
== END 2020-10-17 16:20 | DRG 682 ==
LOC: ER 19:13 → 1 WEST ICU 21:15 → 2 NORTH 10-14 20:10
PROVIDERS: ADMIT Family Medicine; ATTEND Family Medicine
DX: N17.9 Acute kidney failure, unspecified (principal); G93.41 Metabolic encephalopathy; E87.0 Hyperosmolality and hypernatremia; E87.1 Hypo-osmolality and hyponatremia; N39.0 Urinary tract infection, site not specified; E87.6 Hypokalemia; E78.5 Hyperlipidemia, unspecified; E86.0 Dehydration; E87.8 Other disorders of electrolyte and fluid balance, not elsewhere classified; F03.90 Unspecified dementia, unspecified severity, without behavioral disturbance, psychotic disturbance, mood disturbance, and anxiety; I10 Essential (primary) hypertension; M19.90 Unspecified osteoarthritis, unspecified site; R13.10 Dysphagia, unspecified; Z79.82 Long term (current) use of aspirin; Z79.899 Other long term (current) drug therapy; Z82.49 Family history of ischemic heart disease and other diseases of the circulatory system; Z86.73 Personal history of transient ischemic attack (TIA), and cerebral infarction without residual deficits; I95.9 Hypotension, unspecified; E66.01 Morbid (severe) obesity due to excess calories
CPT/HCPCS: 36415; 70450; 71045; 76770; 80048; 80053; 80185; 81001; 82140; 82550; 83735; 83880; 83930; 83935; 84100; 84132; 84443; 85025; 87040; 87086; 93005; 93306; 96360; 96361; J0696; J1644; J2543; J3480; J3490; J7030; J7042; J7050; J7060; P9041; Q2009; 92610-GN; 99285-25; G0378